=== PATIENT | female | born 1950 | race Caucasian/White ===

== ENCOUNTER → 2017-10-27 14:53 | Outpatient (CLI) | payer MEDICARE, SELFPAY ==
--- NOTE | 2017-10-27 14:57 | CT_ITS ---
EXAM: CT LUNG LOW DOSE WO CONTRAST COMPARISON: None HISTORY: 67-year-old female with 48 pack-year smoking history asymptomatic ORDERING PHYSICIAN: Rubin Mcdowell MD PATIENT AGE: 67 years TECHNIQUE: The exam was performed on a GE Light Speed [address] scanner using 2.90 mGy CTDI. A low dose helical CT CHEST was performed on a multi-detector scanner. All CT scans at the facility use one or more dose reduction, viz: automated exposure control; ma/kV adjustment per patient size (including targeted exams where dose is matched to indication; i.e. head); or iterative reconstruction technique. The LDCT was performed in a facility that meets the criteria for the screening program. Data regarding this exam was submitted to ACR which is an approved registry. The order for this exam indicates that it came as a result of a lung cancer screening counseling shard decision-making visit that included all the elements required of such a visit including smoking cessation. The radiologist interpreting this exam meets the CMS criteria for the LDCT lung cancer screening program. The exam is reported using the Lung-RADS classification scale and reported to the ACR registry. NOTE: This study was performed for the specific purposes of lung cancer screening and is not an alternative to diagnostic chest CT. RADIATION DOSE: CTDI vol(CT dose Index-volume) = 2.90mG DLP (Dose Length Product) = 101.74 mGcm FINDINGS: Biapical fibrotic changes are present with fibronodular changes. Calcified granulomas present in the right apex. There is an irregular parenchymal opacity in the right upper lobe at 8 mm and an additional nodule in the right apex 6 mm. Additional 6 mm nodule present in the right apex posteriorly along with subpleural densities in the right upper lobe posteriorly. These are all probably related to fibrotic changes. [address] follow-up suggested. There are centrilobular emphysematous changes with scattered calcified granulomas. Mild bronchial thickening is noted. 5 mm subpleural opacity right upper lobe laterally. There are scattered calcified nodes in the mediastinum. Upper abdominal images show a 2.9 cm isodensity in the left hepatic lobe probably related to a cyst. IMPRESSION: 1. Lung RADS Category: 3, probably benign 2. Other findings: Centrilobular emphysema, old granulomatous disease, probable hepatic cyst RECOMMENDATIONS: [address] chest follow-up without and with contrast
== END ==
PROVIDERS: PCP Family Medicine; Visit Provider Family Medicine
DX: Z87.891 Personal history of nicotine dependence (principal); Z12.2 Encounter for screening for malignant neoplasm of respiratory organs

== ENCOUNTER → 2018-11-01 12:54 | Outpatient (CLI) | payer MEDICARE, SELFPAY ==
--- NOTE | 2018-11-01 12:59 | CT_ITS ---
CT lung screening EXAM: CT LUNG LOW DOSE WO CONTRAST HISTORY: Greater than 30 pack-year smoking history asymptomatic for lung cancer ITS.REASON: CURRENT TOBACCO USE ORDERING PHYSICIAN: Rubin Mcdowell MD PATIENT AGE: 68 years COMPARISON: 10/27/2017 TECHNIQUE: The exam was performed on a GE Light Speed [address] scanner using 2.90 mGy CTDI. A low dose helical CT CHEST was performed on a multi-detector scanner. All CT scans at the facility use one or more dose reduction, viz: automated exposure control, ma/kV adjustment per patient size (including targeted exams where dose is matched to indication, i.e. head), or iterative reconstruction technique. The LDCT was performed in a facility that meets the criteria for the screening program. Data regarding this exam was submitted to ACR which is an approved registry. The order for this exam indicates that it came as a result of a lung cancer screening counseling shard decision-making visit that included all the elements required of such a visit including smoking cessation. The radiologist interpreting this exam meets the CMS criteria for the LDCT lung cancer screening program. The exam is reported using the Lung-RADS classification scale and reported to the ACR registry. NOTE: This study was performed for the specific purposes of lung cancer screening and is not an alternative to diagnostic chest CT. RADIATION DOSE: CTDI vol(CT dose Index-volume) = 2.90mG DLP (Dose Length Product) = 108.90 mGcm FINDINGS: COPD with scattered areas of fibrosis. There is moderate biapical fibronodular changes which are stable consistent with scarring. There is a new 5 mm nodular density in the right middle lobe image 45. Mild diffuse bronchial thickening. No central obstructing lesions. Coronary artery calcifications are present. Calcified granuloma is present in the right upper lobe. 2.7 x 2 cm isodense lesion in the left hepatic lobe IMPRESSION: 1. Lung RADS Category: 3, probably benign, new right middle lobe nodule 2. Other findings: COPD, coronary artery calcification RECOMMENDATIONS: [address] follow-up
--- NOTE | 2018-11-01 13:00 | XR_ITS ---
XR DEXA axial skeleton HISTORY: ITS.REASON: POST MENOPAUSAL SCREENING ORDERING PHYSICIAN: Rubin Mcdowell MD PATIENT AGE: 68 years COMPARISON: 06/08/2013 FINDINGS: The BMD measured at the Left femoral neck is 0.770 g/cm squared with a T score of -1.9. This is considered Osteopenic according to the World Health Organization criteria. Fracture risk is Moderate. Treatment is advised. The L1 L4 density has a T score of -0.3 and has decreased by 8%. The hip density has decreased by 8.6%. IMPRESSION: Osteopenia with moderate fracture risk. Treatment is advised. Suggest follow-up exam October 2020
== END ==
PROVIDERS: PCP Family Medicine; Visit Provider Family Medicine
DX: Z12.2 Encounter for screening for malignant neoplasm of respiratory organs (principal); Z87.891 Personal history of nicotine dependence; Z78.0 Asymptomatic menopausal state
CPT/HCPCS: 77080

== ENCOUNTER → 2019-04-05 10:09 | Outpatient (CLI) | payer MEDICARE, SELFPAY ==
--- NOTE | 2019-04-05 10:16 | XR_ITS ---
PROCEDURE: XR FOOT WT BEARING RT 3V CLINICAL INDICATION: pain Pain COMPARISON: FTL2 FOOT-LT-2 VIEWS from 10/08/2015 FTL3 FOOT-LT-3 VIEWS from 11/06/2015 FTL3 FOOT-LT-3 VIEWS from 11/27/2015 FTR3 FOOT-RT-3 VIEWS from 11/27/2015 FINDINGS: No fracture or dislocation. No lytic or blastic change. There is normal mineralization. The joint spaces are well-preserved. No significant degenerative/arthritic changes. No erosive changes evident. Other findings:Mild generalized osteopenia IMPRESSION: No acute findings. Dictated by: Baldemar Garnett MD 04/05/2019 11:18 Electronically signed by Baldemar Garnett MD in [place] 04/05/2019 11:18
--- NOTE | 2019-04-05 10:16 | XR_ITS ---
PROCEDURE: XR FOOT WT BEARING LT 3V CLINICAL INDICATION: comparison views Prior 1st MTP replacement COMPARISON: FTL2 FOOT-LT-2 VIEWS from 10/08/2015 FTL3 FOOT-LT-3 VIEWS from 11/06/2015 FTL3 FOOT-LT-3 VIEWS from 11/27/2015 FTR3 FOOT-RT-3 VIEWS from 11/27/2015 XR FOOT WT BEARING RT 3V from 04/05/2019 FINDINGS: Status post MTP replacement with a metallic prosthesis at the distal aspect of the 1st metatarsal and mild heterotopic ossification. No fracture or dislocation. Good alignment. Other findings:None. IMPRESSION: No change status post 1st MTP replacement with good alignment Dictated by: Baldemar Garnett MD 04/05/2019 11:21 Electronically signed by Baldemar Garnett MD in [place] 04/05/2019 11:21
== END ==
PROVIDERS: PCP Family Medicine; Visit Provider Podiatrist
DX: M79.671 Pain in right foot; M79.672 Pain in left foot
CPT/HCPCS: 73630

== ENCOUNTER → 2019-12-15 11:40 | Outpatient (CLI) | payer MEDICARE, SELFPAY ==
--- NOTE | 2019-12-15 11:44 | XR_ITS ---
PROCEDURE: XR FOOT WT BEARING RT 3V CLINICAL INDICATION: pain COMPARISON: FTL3 FOOT-LT-3 VIEWS from 11/27/2015 FTR3 FOOT-RT-3 VIEWS from 11/27/2015 XR FOOT WT BEARING RT 3V from 04/05/2019 XR FOOT WT BEARING LT 3V from 04/05/2019 FINDINGS: Hypertrophic change present at the distal aspect of the 1st metatarsal consistent bunion formation. There is some soft tissue swelling at the base of the 5th metatarsal with no underlying bony abnormality. The joint spaces are well-preserved. No significant degenerative/arthritic changes. No erosive changes evident. Other findings:None. IMPRESSION: Bony hypertrophy at the distal aspect of the 1st metatarsal and mild soft tissue swelling at the base of the 5th metatarsal Dictated by: Baldemar Garnett MD 12/15/2019 13:04 Electronically signed by Baldemar Garnett MD in [place] 12/15/2019 13:04
== END ==
PROVIDERS: PCP Family Medicine; Visit Provider Podiatrist
DX: L84 Corns and callosities (principal); M21.621 Bunionette of right foot
CPT/HCPCS: 73630

== ENCOUNTER → 2019-12-23 12:50 | Outpatient (CLI) | payer MEDICARE, SELFPAY ==
--- NOTE | 2019-12-23 12:50 | MR_ITS ---
PROCEDURE: MR ANKLE RT WO/W CON CLINICAL INDICATION: eval for 5th met stress fx.surgical planning visit Peroneal tendinitis, tailor's bunion, osteoarthritis, palpable abnormality, pain and swelling COMPARISON: XR FOOT WT BEARING RT 3V from 12/15/2019 TECHNIQUE: Routine multiplanar multi echo sequences are performed without and with gadolinium enhancement. The FINDINGS: A marker is placed at the base of the 5th metatarsal corresponding to the palpable abnormality. There is some mild bony hypertrophy at this region at the base of the 5th metatarsal but no soft tissue mass. No bone marrow edema at this region. No abnormal fluid collections. The anterior posterior tibiofibular syndesmosis appears intact. The anterior posterior talofibular ligaments appear intact. The posterior tibialis tendon, flexor hallucis and flexor digitorum longus, and Achilles tendon have an unremarkable appearance. Motion artifact does somewhat obscure fine detail regarding these structures. Sagittal images are very limited due to motion. The peroneal tendons have a somewhat unusual appearance with bulky prominence of the tendons at the retro malleolar groove. The peroneal brevis tendon is flattened at this area. Just distal to the retro malleolar groove there is increased T2 signal within the peroneal brevis tendon which appears somewhat thinned. The peroneal longus tendon has an unremarkable appearance. There is a small ankle joint effusion. The talar dome has an unremarkable appearance. There is metatarsus varus IMPRESSION: 1. Flattened appearance of the peroneal brevis at the retro malleolar groove with increased T2 signal and thinning of the peroneal brevis distal to the retro malleolar groove suspicious for partial tear and or tendinitis. 2. Hypertrophy at the base of the 5th metatarsal. No soft tissue or bony mass evident. 3. Small ankle joint effusion Dictated by: Baldemar Garnett MD 12/27/2019 10:57 Electronically signed by Baldemar Garnett MD in [place] 12/27/2019 10:57
== END ==
PROVIDERS: PCP Family Medicine; Visit Provider Podiatrist
DX: M76.71 Peroneal tendinitis, right leg (principal)
CPT/HCPCS: 73723; A9576

== ENCOUNTER → 2019-12-28 10:51 | Outpatient (CLI) | payer MEDICARE, SELFPAY ==
--- NOTE | 2019-12-28 10:54 | MM_ITS ---
PROCEDURE: MM DIG SCREENING MAMM BI W/CAD Digital Breast Tomosynthesis Included CLINICAL INDICATION: SCREENING There is a history of breast cancer patient's maternal 1st cousin. COMPARISON: DMSB DIG MAMM-SCREEN SHERRY from 07/06/2014 DMSB DIG MAMM-SCREEN SHERRY from 04/14/2016 DMSB DIG MAMM-SCREEN SHERRY W/CAD from 04/16/2017 TECHNIQUE: Standard CC and MLO images and 3D Tomosynthesis was obtained. R2 CAD reviewed. FINDINGS: Prominent somewhat heterogenic fibroglandular densities are seen in the central portions of both breasts. The findings are fairly symmetrical bilaterally. There is a mole marker inner quadrant right breast. There is a benign-appearing microcalcification in each breast. There is no suspicious lesion in either breast and no suspicious microcalcifications. IMPRESSION: Moderate breast density with no suspicious lesions seen BI-RAD Category: 2 Benign Finding(s) FOLLOW-UP: 1YR 1 Year Follow-up (A letter has been sent to the patient regarding results of the study.) Dictated by: Dr. Ryan Ivy MD 01/01/2020 13:[address] Ryan Ivy MD in [place] 01/01/2020 13:35
== END ==
PROVIDERS: PCP Family Medicine; Visit Provider Family Medicine
DX: Z12.31 Encounter for screening mammogram for malignant neoplasm of breast (principal)
CPT/HCPCS: 77063; 77067

== ENCOUNTER → 2020-01-05 14:55 | Outpatient (CLI) | payer MEDICARE, SELFPAY ==
--- NOTE | 2020-01-05 15:07 | XR_ITS ---
PROCEDURE: XR CHEST 2V CLINICAL HISTORY: HTN COMPARISON: LUNGSCREEN CT lung screening from 11/01/2018 FINDINGS: The cardiomediastinal silhouette and pulmonary vascularity are within normal limits. There is mild biapical pleural thickening. There is some fibronodular changes in the right apex. The remaining lungs are clear. No acute bony abnormalities. IMPRESSION: No acute findings. Dictated by: Baldemar Garnett MD 01/05/2020 15:30 Electronically signed by Baldemar Garnett MD in [place] 01/05/2020 15:30
--- NOTE | 2020-01-05 15:47 | ECG_ITS ---
APPROVED REPORT Exam: Resting ECG HR:62 bpm ECG Measurements Heart Rate 62 AXES RI 170 P 65 QRSd 84 QRS 58 QT 394 T 63 QTc 399 <Conclusion> Normal sinus rhythm Normal ECG Electronically signed by : Rubin Ro, 01/06/2020 17:41:55
[2020-01-05 16:05] LABS: Basophils % 0.3 % (0.1-2.0); Eosinophils # 0.1 K/mm3 (0.0-0.4); Eosinophils % 1.1 % (0.1-12.0); Hematocrit 44.7 % (37.0-47.0); Hemoglobin 15.2 g/dL (12.2-16.2); Lymphocytes # 2.6 K/mm3 (0.7-4.5); Lymphocytes % 33.9 % (10-50); Mean Corpuscular Hemoglobin 31.7 pg (27.0-31.2); Mean Corpuscular Volume 93.2 fl (81-99); Mean Platelet Volume 7.7 fl (7.4-10.4); Monocytes # 0.7 K/mm3 (0.1-1.0); Monocytes % 8.4 % (1.7-9.3); Neutrophils # 4.3 K/mm3 (1.8-7.8); Neutrophils % 56.2 % (37.0-80.0); Platelet Count 228 K/mm3 (142-424); Red Cell Distribution Width 13.4 % (11.5-17.5); White Blood Count 7.7 K/mm3 (4.8-10.8)
[2020-01-05 19:16] LABS: Chloride 101 mmol/L (98-107); Sodium 138 mmol/L (136-145)
[2020-01-05 19:19] LABS: Alanine Aminotransferase 18 U/L (12-78); Albumin Level 4.3 g/dl (3.5-5.0); Albumin/Globulin Ratio 1.6 (1.1-1.8); Alkaline Phosphatase 99 U/L (38-126); Aspartate Amino Transferase 30 U/L (14-36); Bilirubin,Total 0.5 mg/dl (0.2-1.3); Blood Urea Nitrogen 9 mg/dl (7-17); Carbon Dioxide 32 mmol/L (22.0-30.0); Estimated Glomerular Filt Rate 100 ml/min (>60); GFR (African American) 121 ML/MIN (>60); Globulin 2.7 g/dL (1.3-3.2)
[2020-01-05 19:20] LABS: Glucose 77 mg/dl (74-100)
[2020-03-22 10:32] LABS: Cotinine 210.2; Nicotine 16.8
== END ==
PROVIDERS: PCP Family Medicine; Visit Provider Podiatrist
DX: Z01.818 Encounter for other preprocedural examination (principal); S86.311A Strain of muscle(s) and tendon(s) of peroneal muscle group at lower leg level, right leg, initial encounter; E55.9 Vitamin D deficiency, unspecified
CPT/HCPCS: 36415; 71046; 80053; 80323; 82306; 85025; 93005

== ENCOUNTER → 2020-01-11 10:32 | Outpatient (CLI) | payer MEDICARE, SELFPAY ==
[2020-01-11 15:59] LABS: Coronavirus 19 IgG Antibody Negative (Negative); Coronavirus 19 IgM Antibody Negative (Negative)
== END ==
PROVIDERS: Visit Provider Podiatrist
DX: Z01.818 Encounter for other preprocedural examination (principal); S86.311A Strain of muscle(s) and tendon(s) of peroneal muscle group at lower leg level, right leg, initial encounter
CPT/HCPCS: 36415; 86328; 88304

== ENCOUNTER 2020-01-13 05:39 | Day surgery (SDC) | payer MEDICARE, SELFPAY ==
[2020-01-11 11:43] VITALS: BMI 23.8
[2020-01-13] VITALS (10 sets, daily range): BP systolic 133–167; BP diastolic 70–83; PULSE 65–79; RESP 12–20; TEMP 36.4–36.7; O2SAT 94–98
--- NOTE | 2020-01-13 07:39 | XR_ITS ---
PROCEDURE: XR FOOT RT 2V CLINICAL INDICATION: RIGHT PERONEAL TENDON REPAIR, R 5TH MT COMPARISON: FTR3 FOOT-RT-3 VIEWS from 11/27/2015 XR FOOT WT BEARING RT 3V from 04/05/2019 XR FOOT WT BEARING LT 3V from 04/05/2019 XR FOOT WT BEARING RT 3V from 12/15/2019 FINDINGS: Intraoperative spot film radiograph 3 seconds fluoroscopy time. No fracture or dislocation. No lytic or blastic change. There is normal mineralization. The joint spaces are well-preserved. No significant degenerative/arthritic changes. No erosive changes evident. Other findings:None. IMPRESSION: No acute findings. Dictated by: Jesus Catherine 01/13/2020 08:57 Electronically signed by Jesus Catherine in [place] 01/13/2020 08:57
--- NOTE | 2020-01-13 08:01 | HMH.ANESCL ---
[facility] Anesthesia Checklist - Structural Data Admitted From: Home Planned Operative Procedure/s: r perineal tendon repair Consent for Planned Operative Procedure(s) Verified: Yes - Additional verifications Anesthesia Reactions: No Hx Blood Transfusions: No Blood Transfusion Reaction: No - Airway Assessment C-Spine Mobility Assessed: Yes TMJ Mobility Assessed: Yes Dentition: Poor Dentition - Neurological Assessment Level of Consciousness: Awake, Alert, Appropriate - Anesthesia Plan Anesthesia Risk discussed: Yes Anesthesia Plan: Verified ASA Class: II Anesthesia Type: General w/block [facility] History I have reviewed the patient's past medical history: Yes Medical History: Reports:: Depression, Hiatal Hernia, Hyperlipidemia, Hypertension, Osteoporosis, Seizures (gabapentin) Denies:: Cancer, Diabetes Mellitus Type 1, Diabetes Mellitus Type 2, Internal Pacemaker, MRSA *Have you ever received a pneumonia vaccine?: Yes *Have you received a flu vaccine this season?: Yes Other Medical History: Reports: Arthritis, Osteoporosis. Denies: Blood Transfusion Reaction Anesthesia experience/problems:: none Other Surgeries: Yes: Appendectomy, Cholecystectomy, Hernia Repair, Hysterectomy-Total, Tubal Ligation. No: Pacemaker Amputation: No Fractures: No - *Social History Educational Level: Completed High School Smoking Status: Current every day smoker Tobacco Type: cigarettes # Packs/Day (cigarettes): 2 Alcohol Intake: never Alcohol Intake Frequency:: other Substance Use Type: denies use *Occupational Status:: retired Housing: house Household Members: spouse *Travel in the last 8 weeks: None - Psychiatric History Pschychiatric History:: Reports:: Depression Family Hx:: Diabetes, Heart Attack
--- NOTE | 2020-01-13 08:15 | XR_ITS ---
PROCEDURE: XR FOOT RT MIN 3V CLINICAL INDICATION: Post op right 5th met COMPARISON: 12/15/2019 FINDINGS: There is a dense cast obscuring the bony detail. No definite bony abnormalities are demonstrated through the dense cast. IMPRESSION: Limited study Dictated by: Jesus Catherine 01/13/2020 09:06 Electronically signed by Jesus Catherine in [place] 01/13/2020 09:06
--- NOTE | 2020-01-13 08:37 | HMH.OPNOTE ---
Date of procedure: 01/13/20 Pre-op Diagnosis:: 1. Right peroneus longus tendon tear 2. Right peroneus brevis tendon tear 3. Right foot exostosis 4. Right fifth metatarsal hypertrophy 5. Right foot synovitis 6. Right foot peroneal retinaculum tear 7. Right sub 5th metatarsal callus Post-op Diagnosis:: Same Procedure performed:: 1. Right peroneus brevis tendon debridement and repair 2. Right peroneus longus tendon debridement and repair 3. Right foot exostectomy 4. Right foot synovectomy 5. Right peroneal retinaculum repair 6. Application of amniotic graft 7. Right foot callus debridement 8. Application of posterior splint Surgeon:: Sandy Ulloa DPM SAIL REPAIRER:: Rakesh Worthy Anesthesia: GETA, regional (R popliteal block) Estimated blood loss (mL): 10 Clinical Note:: Mrrs. Engle is a 69 y/o female who c/o right lateral foot pain and bony prominence. RIGHT ANKLE MRI 12/23/19, Images were reviewed and evaluated by myself. FINDINGS: A marker is placed at the base of the 5th metatarsal corresponding to the palpable abnormality. There is some mild bony hypertrophy at this region at the base of the 5th metatarsal but no soft tissue mass. No bone marrow edema at this region. No abnormal fluid collections. The anterior posterior tibiofibular syndesmosis appears intact. The anterior posterior talofibular ligaments appear intact. The posterior tibialis tendon, flexor hallucis and flexor digitorum longus, and Achilles tendon have an unremarkable appearance. Motion artifact does somewhat obscure fine detail regarding these structures. Sagittal images are very limited due to motion. The peroneal tendons have a somewhat unusual appearance with bulky prominence of the tendons at the retro malleolar groove. The peroneal brevis tendon is flattened at this area. Just distal to the retro malleolar groove there is increased T2 signal within the peroneal brevis tendon which appears somewhat thinned. The peroneal longus tendon has an unremarkable appearance. There is a small ankle joint effusion. The talar dome has an unremarkable appearance. There is metatarsus varus. IMPRESSION: 1. Flattened appearance of the peroneal brevis at the retro malleolar groove with increased T2 signal and thinning of the peroneal brevis distal to the retro malleolar groove suspicious for partial tear and or tendinitis. 2. Hypertrophy at the base of the 5th metatarsal. No soft tissue or bony mass evident. 3. Small ankle joint effusion. Conservative treatment discussed but not recommended at this point, as she has tried and failed treatment including: NSAIDs, modification of shoe gear and activity, immobilization, ice, elevation, streching therapy. We previously discussed tendon debridement and repair and exostectomy with possible advancement of the tendon at the fifth metatarsal as needed. All risks and benefits were discussed including but not limited to: damage to blood vessels and nerves, bleeding, infection, wound complications, delayed, mal or non-union of bone, post-traumatic arthritis, need for further surgery, need for removal of implant, prolonged swelling of the extremity, prolonged pain, CRPS/RSD, DVT, and anesthetic complications. No guarantees were given. All questions fully answered. The patient verbalized understanding and agreed to proceed with surgery. Consent was obtained. Necessary labs and pre-op testing ordered: CBC, CMP, EKG, CXR. PCP Dr. Mcdowell granted medical clearance. e-Rx Amenia, Freda, Riana. Operative findings:: Tear noted to the right peroneal retinaculum. The longus tendon had a longitudinal split tear noted. The Daxa is brevis tendon had a longitudinal split tear about 6 cm long with thickening bulbous nonviable tendon at the level of the retromalleolar groove. There is a prominent fifth metatarsal base with hypertrophy of the bone. Synovitis noted throughout the lateral foot and around the peroneal tendons. Operative note:: On this date and time patient was deemed an appropriat
--- NOTE | 2020-01-13 08:45 | P.PN_ITS ---
[facility] Anesthesia Record Part I Intake, IV Amount: 1,500 Estimated blood loss (mL): 0 Urine output (mL): 0 Blood Pressure: 133/77 SaO2: 96 Pulse Rate: 72 Respiratory Rate: 12 Temperature: 98.1 F Patient is:: Awake, Stable Stable to PACU at:: 08:35
--- NOTE | 2020-01-13 09:05 | PC.NURSE ---
0855- rad @ bedside getting post-op xrays
== END 2020-01-13 10:10 | disposition home or self-care (01) ==
LOC: OR 05:39
PROVIDERS: PCP Family Medicine; Visit Provider Podiatrist
DX: M66.371 Spontaneous rupture of flexor tendons, right ankle and foot (principal); M21.621 Bunionette of right foot; M79.671 Pain in right foot; I10 Essential (primary) hypertension; Z72.0 Tobacco use; E78.5 Hyperlipidemia, unspecified; E55.9 Vitamin D deficiency, unspecified; M81.0 Age-related osteoporosis without current pathological fracture; M89.371 Hypertrophy of bone, right ankle and foot; Z79.899 Other long term (current) drug therapy; Z88.8 Allergy status to other drugs, medicaments and biological substances
CPT/HCPCS: 28086; 28200 ×2; 28288; C5275; 73620; 73630; 76000; 96374; J2405; Q4211

== ENCOUNTER 2020-04-13 11:00 | Outpatient (RCR) | payer MEDICARE, SELFPAY ==
--- NOTE | 2020-04-04 09:17 | HMH.RHREAS ---
Rehab Reassessment Rehab OP Re-assessment Start: 04/04/20 08:28 Freq: Status: Active Protocol: Document 04/04/20 08:46 JANNY (Rec: 04/04/20 09:17 JANNY [id number]) Electronically Signed By Juan M Ji, PT 04/04/20 08:46 Rehab Re-assessment Subjective Subjective PT REPORTS 0/10 R ANKLE PAIN ON VAS, AND FEELS 75-80% BETTER OVERALL Objective Objective Notes MMT: R ANKLE DF 4-4+/5, PF 4-4 +/5, INV 4/5, EVR 4/5 AROM: R ANKLE DF 0-10, PF 0-40 , INV 0-55, EVR 0-2 TTP: 0/4 SX. INCISION GAIT: PT AMBULATES WITH INCREASED SUPINATION, D/T PERONEAL WEAKNESS, AND PROLONGED COMPENSATORY PATTERN Assessment Progress Assessment Progressing as Expected Assessment Notes PT W/IMPROVED STRENGTH, ROM, AND TTP Patient goals met STG'S 01/24 LTG'S 10/27 Goals Not Met STG'S 07/27, LTG'S 12/27 Plan Plan PT TO CONT. W/SKILLED P.T. TO MAKE FURTHER IMPROVEMNTS IN R ANKLE AROM, STRENGTH, AND GAIT LIMITATIONS TO ALLOW FOR OPTIMAL FUNCTION Frequency of Therapy 1-2X/WK Duration of therapy 3-4 WKS Time and Billing Re-Eval Time 15 Re-Eval Billing Units 0 PHYSICIAN CERTIFICATION: I certify the specified therapy services for Bonny Engle are required, authorized, and reviewed every 30 days.
== END 2020-04-13 12:00 | disposition home or self-care (01) ==
LOC: PT 11:00
PROVIDERS: PCP Family Medicine; Visit Provider Podiatrist
DX: S86.311A Strain of muscle(s) and tendon(s) of peroneal muscle group at lower leg level, right leg, initial encounter (principal); Z98.890 Other specified postprocedural states
CPT/HCPCS: 97010; 97014; 97016; 97110; 97112; 97116; 97140; 97163; 97164; G0283

== ENCOUNTER → 2020-09-11 11:47 | Outpatient (CLI) | payer MEDICARE, SELFPAY ==
--- NOTE | 2020-09-11 11:55 | XR_ITS ---
PROCEDURE: XR FOOT RT MIN 3V CLINICAL INDICATION: INJURY OF RT FOOT, INITIAL ENCOUNTER Pain COMPARISON: CR XR FOOT WT BEARING LT 3V from 04/05/2019 CR XR FOOT WT BEARING RT 3V from 12/15/2019 CR XR FOOT RT MIN 3V from 01/13/2020 CR XR FOOT RT 2V from 01/13/2020 FINDINGS: Diffuse osteopenia with metatarsus varus. There is a nondisplaced fracture involving the proximal shaft of the 1st metatarsal. There is pes cavum IMPRESSION: Nondisplaced fracture proximal shaft of 1st metatarsal. Pes cavum with metatarsus varus Dictated by: Baldemar Garnett MD 09/11/2020 14:25 Baldemar Garnett MD in [place] 09/11/2020 14:25
== END ==
PROVIDERS: PCP Family Medicine; Visit Provider Family Medicine
DX: S99.921A Unspecified injury of right foot, initial encounter (principal)
CPT/HCPCS: 73630

== ENCOUNTER → 2020-09-18 10:22 | Outpatient (CLI) | payer MEDICARE, SELFPAY ==
--- NOTE | 2020-09-18 10:30 | CT_ITS ---
PROCEDURE: CT FOOT RT WO CON CLINICAL HISTORY: Pain after fall. Fracture evaluation Fall on 09/14/20 Pt states she has had tendon repair sx in right foot COMPARISON: CR XR FOOT RT MIN 3V from 09/11/2020 TECHNIQUE: Axial images obtained with sagittal and coronal reformats. All CT scans at the facility use one or more dose reduction, viz: automated exposure control, ma/kV adjustment per patient size (including targeted exams where dose is matched to indication, i.e. head), or iterative reconstruction technique. FINDINGS: The distal tibia and fibula have an unremarkable appearance as does the talus and calcaneus. Minimal osteoarthritic change talonavicular joint. The cuboid and cuneiforms have an unremarkable appearance. There is a nondisplaced fracture involving the proximal shaft of the 1st metatarsal. Callus formation is developing at the fracture site. There is mild medial angulation of the distal fracture fragment. The fracture does not appear to extend to the proximal articular surface. The base of the 2nd metatarsal is unremarkable. No evidence of Lisfranc injury. There is metatarsus varus. Soft tissue swelling is present at the lateral aspect of the ankle at the peroneal tendon region with ill definition of the peroneal tendons. No other soft tissue abnormality evident. IMPRESSION: 1. Nondisplaced healing fracture involving the proximal aspect of the 1st metatarsal. No evidence of Lisfranc injury. 2. Metatarsus varus. 3. Soft tissue swelling at the lateral aspect of the ankle joint at the peroneal tendon region Dictated by: Baldemar Garnett MD 09/20/2020 09:38 Baldemar Garnett MD in [place] 09/20/2020 09:38
== END ==
PROVIDERS: PCP Family Medicine; Visit Provider Podiatrist
DX: M79.671 Pain in right foot (principal)
CPT/HCPCS: 73700

== ENCOUNTER → 2020-10-05 13:00 | Outpatient (CLI) | payer MEDICARE, SELFPAY ==
--- NOTE | 2020-10-05 13:08 | XR_ITS ---
PROCEDURE: XR FOOT WT BEARING RT 3V CLINICAL INDICATION: fracture eval Follow-up fracture COMPARISON: No exams were available for comparison FINDINGS: There is a healing nondisplaced fracture involving the proximal shaft of the 1st metatarsal. No other significant anomalies are evident. The joint spaces are well-preserved. No significant degenerative/arthritic changes. No erosive changes evident. Other findings:None. IMPRESSION: Good alignment healing fracture proximal aspect of 1st metatarsal Dictated by: Baldemar Garnett MD 10/05/2020 14:04 Baldemar Garnett MD in [place] 10/05/2020 14:04
== END ==
PROVIDERS: PCP Family Medicine; Visit Provider Podiatrist
DX: T14.8XXA Other injury of unspecified body region, initial encounter (principal); S92.314D Nondisplaced fracture of first metatarsal bone, right foot, subsequent encounter for fracture with routine healing
CPT/HCPCS: 73630

== ENCOUNTER 2020-11-14 11:16 | Emergency (ER) | payer MEDICARE, SELFPAY ==
[2020-11-14 11:34] VITALS: BP 141/87; PULSE 74; RESP 16; TEMP 36.9; O2SAT 93; BMI 25.0
--- NOTE | 2020-11-14 11:40 | HMH.EDUTC ---
[facility] Disposition Clinical Impression: Exposure to COVID-19 virus Disposition: Home, Self-Care Condition on Discharge: Good Instructions: Preventing the Spread of Coronavirus Discharge Instructions Additional Instructions: Drink plenty of fluids. Take tylenol for pain or fever. Return if you begin to have difficulty breathing. Follow up with your regular doctor. GO TO THE ER FOR ANY WORSENING SYMPTOMS Referrals: Rubin Mcdowell MD [Primary Care Provider] - Time of Disposition: 11:43 Medical Decision Making - Medical Records Medical records reviewed: No: I reviewed the patient's medical records. - Emmanuel Inquiry Pt receiving controlled substance: No Vital Signs: 11/14/20 11:34 11/14/20 11:47 Temperature 98.4 F 98.4 F Temperature Source Oral Pulse Rate 74 Pulse Rate [Left] 74 Respiratory Rate 16 16 Blood Pressure 141/87 H Blood Pressure [Right Arm] 141/87 H Blood Pressure Mean [Right Arm] 105 Blood Pressure Source [Right Arm] Automatic Cuff Blood Pressure Position [Right Arm] Sitting 02 Sat by Pulse Oximetry 93 L Oxygen Delivery Method Room Air [facility] HPI - General Stated complaint: Covid test Time Seen by Provider: 11/14/20 11:40 Mode of Arrival: Ambulatory Source of Information: Patient Limitations: No Limitations Description of Symptoms (Recalled from Triage Doc. by RN): Covid testing-Exposure HEENT Symptoms (Recalled from RN notes): No Resp Symptoms (Recalled from RN notes): No Skin Symptoms (Recalled from RN notes): No MS Symptoms (Recalled from RN notes): No Functional Status (Recalled from RN notes): wnl - History of Present Illness Provider Complaint: She states that she was exposed to covid-19 last week. She denies any symptoms, but she needs to be sure because she has a chronically ill sister. - Related Data Home Medications Medication Instructions Recorded Confirmed carvedilol 12.5 mg tablet 12.5 mg PO DAILY tab 04/05/19 10/08/20 escitalopram oxalate 5 mg tablet 5 mg PO DAILY tab 04/05/19 10/08/20 lactobacillus combination no.9 4 4,000 mmu cells PO DAILY 04/05/19 10/08/20 billion cell capsule lisinopril 20 mg tablet 20 mg PO DAILY tab 04/05/19 10/08/20 melatonin 5 mg tablet 5 mg PO HS PRN 04/05/19 10/08/20 rosuvastatin 10 mg tablet 10 mg PO DAILY tab 04/05/19 10/08/20 Previous Rx's Medication Instructions Recorded ergocalciferol (vitamin D2) 1,250 50,000 unit PO QWEEK 98 Days #14 01/06/20 mcg (50,000 unit) capsule cap Allergies Allergy/AdvReac Type Severity Reaction Status Date / Time gabapentin Allergy Severe Seizure Verified 11/14/20 11:39 - Worker's Comp Is this a Worker's Comp case?: No Is this an [facility] Worker's Comp?: No Is this a [facility] Worker's Comp?: No [facility] History - Hepatitis A Screen Drug use history?: No High risk sexual behaviors?: No History of sexually transmitted infection?: No Currently employed?: No Childcare worker?: No Do you have indoor plumbing?: Yes Do you have electricity?: Yes Attestation statement:: This patient has been screened for Hepatitis A risk factors. I have reviewed the patient's past medical history: Yes Medical History: Reports:: Depression, Hiatal Hernia, Hyperlipidemia, Hypertension, Osteoporosis, Seizures Denies:: Cancer, Diabetes Mellitus Type 1, Diabetes Mellitus Type 2, Internal Pacemaker, MRSA Other Medical History: Reports: Arthritis, Osteoporosis. Denies: Blood Transfusion Reaction Other Surgeries: Yes: Appendectomy, Cholecystectomy, Hernia Repair, Hysterectomy-Total, Tubal Ligation. No: Pacemaker Amputation: No Fractures: No Comment: Back Surgery- Cervical. Hemorrhoidectomy. Surgery left great toe bunionectomy years ago. - Social History Smoking Status: Current every day smoker Tobacco Type: cigarettes # Packs/Day (cigarettes): 1 Alcohol Intake: never Alcohol Intake Frequency:: other Substance Use Type: denies use Occupational Status: retired Housing: house [employer]
[2020-11-14 11:47] VITALS: BP 141/87; PULSE 74; RESP 16; TEMP 36.9; O2SAT 93
--- NOTE | 2020-11-14 16:14 | PC.NURSE ---
Pt notified of positive Covid test result.
== END 2020-11-14 11:48 | disposition home or self-care (01) ==
PROVIDERS: Emergency Provider Nurse Practitioner Family; PCP Family Medicine
DX: U07.1 COVID-19 (principal); I10 Essential (primary) hypertension; E78.5 Hyperlipidemia, unspecified; G40.909 Epilepsy, unspecified, not intractable, without status epilepticus; M81.0 Age-related osteoporosis without current pathological fracture; F33.1 Major depressive disorder, recurrent, moderate; F17.210 Nicotine dependence, cigarettes, uncomplicated; Z79.899 Other long term (current) drug therapy
CPT/HCPCS: G0463; 99202; U0003

== ENCOUNTER 2021-06-14 14:36 | Emergency (ER) | payer MEDICARE, SELFPAY ==
--- NOTE | 2021-06-14 14:38 | ECG_ITS ---
APPROVED REPORT Exam: Resting ECG HR:67 bpm ECG Measurements Heart Rate 67 AXES KS 142 P 65 QRSd 84 QRS 68 QT 406 T 52 QTc 429 Conclusion Normal sinus rhythm with sinus arrhythmia Normal ECG Electronically signed by : Rubin Ro MD 06/15/2021 10:02:28
[2021-06-14 14:42] VITALS: BP 150/98; PULSE 72; O2SAT 90
--- NOTE | 2021-06-14 14:44 | HMH.EDGENADL ---
ED Disposition Clinical Impression: Syncope and collapse Acute bronchitis Qualifiers: Bronchitis organism: unspecified organism Qualified Code(s): J20.9 - Acute bronchitis, unspecified Diarrhea Qualifiers: Diarrhea type: unspecified type Qualified Code(s): R19.7 - Diarrhea, unspecified Disposition: Home, Self-Care Condition on Discharge: Good Instructions: DI for Syncope in Adults (Fainting), DI for Acute Bronchitis, DI for Diarrhea and Traveler's Diarrhea -- Adult Additional Instructions: Follow-up with your primary care provider, call Thursday to make appointment. Return the emergency department if fainting recurs. Rest, drink plenty of fluids. Referrals: Rubin Mcdowell MD [Primary Care Provider] - - Critical Care Critical Care Time: No Attestation: On , the high probability of a clinically significant, sudden or life threatening deterioration of the following system(s) required my full and direct attention, intervention and personal management. The time I documented below is in addition to time spent performing reported procedures but includes the following listed in this critical care notation. Medical Decision Making - Medical Records Medical records reviewed: Yes: I reviewed the patient's medical records. MR Comment: positive covid PCR in october - Emmanuel Inquiry Pt receiving controlled substance: No Vital Signs: 06/14/21 14:42 06/14/21 14:45 06/14/21 15:00 Temperature 98.0 F Temperature Source Oral Pulse Rate 72 67 Pulse Rate [Right Brachial] 102 H Respiratory Rate 18 Blood Pressure 150/98 H 125/81 Blood Pressure [Right Arm] 150/98 H Blood Pressure Mean [Right Arm] 115 Blood Pressure Source Automatic Cuff Automatic Cuff Blood Pressure Source [Right Arm] Automatic Cuff Blood Pressure Position Sitting Sitting Blood Pressure Position [Right Arm] Sitting 02 Sat by Pulse Oximetry 90 L 98 92 L Oxygen Delivery Method Room Air Room Air Room Air 06/14/21 15:30 06/14/21 16:08 Temperature Temperature Source Pulse Rate 66 63 Pulse Rate [Right Brachial] Respiratory Rate Blood Pressure 133/83 154/85 H Blood Pressure [Right Arm] Blood Pressure Mean [Right Arm] Blood Pressure Source Automatic Cuff Automatic Cuff Blood Pressure Source [Right Arm] Blood Pressure Position Sitting Sitting Blood Pressure Position [Right Arm] 02 Sat by Pulse Oximetry 92 L 93 L Oxygen Delivery Method Room Air Room Air - Lab Data Lab Results 06/14/21 14:43: POC Glucose 98 06/14/21 14:45: WBC 15.0 H, RBC 5.35, Hgb 16.4 H, Hct 49.4 H, MCV 92.4, MCH 30.6, MCHC 33.2, RDW 13.6, Plt Count 347, MPV 7.8, Neut % (Auto) 71.9, Lymph % (Auto) 20.5, Wilkinson % (Auto) 4.2, Eos % (Auto) 1.1, Baso % (Auto) 2.2 H, Neut # (Auto) 10.8 H, Lymph # (Auto) 3.1, Wilkinson # (Auto) 0.6, Eos # (Auto) 0.2, Baso # (Auto) 0.3 H, Total Counted 100, Neutrophils % (Manual) 66, Lymphocytes % (Manual) 27, Monocytes % (Manual) 5, Eosinophils % (Manual) 1, Basophils % (Manual) 1.0, Platelet Estimate Normal, RBC Morphology Normal 06/14/21 14:45: Sodium 137, Potassium 3.4 L, Chloride 96 L, Carbon Dioxide 36 H, Anion Gap 8.4, BUN 18 H, Creatinine 0.70, Estimated Creat Clear 57, Estimated GFR 83, Est GFR ( Amer) 100, Glucose 96, Calcium 9.1, Total Bilirubin 0.5, AST 29, ALT 22, Alkaline Phosphatase 99, Troponin I < 0.01, Total Protein 7.2, Albumin 4.2, Globulin 3.0, Albumin/Globulin Ratio 1.4 06/14/21 16:14: SARS-CoV-2 (PCR) Not detected, Influenza A Untype (PCR) Not detected, Influenza Type B (PCR) Not detected Result diagrams: 06/14/21 14:45 06/14/21 14:45 Orders (Tests/Meds): ED MEDICATIONS Discontinued Medications Generic Name Dose Route Start Last Admin Trade Name Freq PRN Reason Stop Dose Admin Sodium Chloride 1,000 ml 06/14/21 14:59 06/14/21 16:19 Sodium Chloride 0.9% 1000ml Bag IV 06/14/21 15:00 1,000 ml BOLUS ONE Administration ORDERS Category Date Time Status Troponin I Q3H Lab
[2021-06-14 14:45] VITALS: BP 150/98; PULSE 102; RESP 18; TEMP 36.7; O2SAT 98; BMI 26.7
[2021-06-14 14:56] LABS: POC Glucose,Bedside 98 (70-110)
--- NOTE | 2021-06-14 14:58 | XR_ITS ---
PROCEDURE INFORMATION: Exam: XR Chest Exam date and time: 06/14/2021 2:58 PM Age: 71 years old Clinical indication: Patient HX: SOA, cough for 2 weeks TECHNIQUE: Imaging protocol: XR of the chest. Views: 2 views. COMPARISON: CR XR CHEST 2V 01/05/2020 3:16 PM FINDINGS: Lungs: Lungs are well aerated without a focal area of consolidation. Pleural spaces: Unremarkable. No pleural effusion. No pneumothorax. Heart/Mediastinum: Unremarkable. No cardiomegaly. Bones/joints: Prior surgical fixation of the caudal aspect of the cervical spine. IMPRESSION: Lungs are well aerated without a focal area of consolidation. Subtle reticulonodular pattern in the upper lobe with mild apical pleural thickening. Follow-up. Consider CT chest if indicated.
[2021-06-14 15:00] VITALS: BP 125/81; PULSE 67; O2SAT 92
[2021-06-14 15:17] LABS: Basophils # 0.3 K/mm3 (0-0.2); Basophils % 2.2 % (0.1-2.0); Eosinophils # 0.2 K/mm3 (0.0-0.4); Eosinophils % 1.1 % (0.1-12.0); Hematocrit 49.4 % (37.0-47.0); Hemoglobin 16.4 g/dL (12.2-16.2); Lymphocytes # 3.1 K/mm3 (0.7-4.5); Lymphocytes % 20.5 % (10-50); Mean Corpuscular HGB Conc 33.2 g/dL (31.8-35.4); Mean Corpuscular Hemoglobin 30.6 pg (27.0-31.2); Mean Corpuscular Volume 92.4 fl (81-99); Mean Platelet Volume 7.8 fl (7.4-10.4); Monocytes # 0.6 K/mm3 (0.1-1.0); Monocytes % 4.2 % (1.7-9.3); Neutrophils # 10.8 K/mm3 (1.8-7.8); Neutrophils % 71.9 % (37.0-80.0); Platelet Count 347 K/mm3 (142-424); Red Blood Count 5.35 M/mm3 (4.20-5.40); Red Cell Distribution Width 13.6 % (11.5-17.5)
[2021-06-14 15:19] LABS: Chloride 96 mmol/L (98-107); Potassium 3.4 mmoL/L (3.5-5.1); Sodium 137 mmol/L (136-145)
[2021-06-14 15:21] LABS: Alanine Aminotransferase 22 U/L (12-78); Alkaline Phosphatase 99 U/L (38-126); Anion Gap 8.4 mEq/L (5-15); Aspartate Amino Transferase 29 U/L (14-36); Bilirubin,Total 0.5 mg/dl (0.2-1.3); Blood Urea Nitrogen 18 mg/dl (7-17); Carbon Dioxide 36 mmol/L (22.0-30.0); Creatinine Clearance Estimated 57 mL/min (50-200); Estimated Glomerular Filt Rate 83 ml/min (>60); GFR (African American) 100 ML/MIN (>60)
[2021-06-14 15:22] LABS: Albumin Level 4.2 g/dl (3.5-5.0); Albumin/Globulin Ratio 1.4 (1.1-1.8); Calcium 9.1 mg/dl (8.4-10.2); Glucose 96 mg/dl (74-100); Total Protein,Serum 7.2 g/dl (6.3-8.2)
[2021-06-14 15:23] LABS: MANUAL DIFFERENTIAL MANUAL DIFFERENTIAL (MANUAL DIFF)
[2021-06-14 15:30] VITALS: BP 133/83; PULSE 66; O2SAT 92
[2021-06-14 15:40] LABS: Troponin I < 0.01 ng/ml (0.00-0.034)
[2021-06-14 15:50] LABS: Eosinophils % 1 % (0-3); Lymphocytes % 27 % (10-50); Monocytes % 5 % (2-9); Neutrophils % 66 % (42-76); Platelet Estimate Normal; RBC Morphology Normal; Total Cells Counted 100
[2021-06-14 16:08] VITALS: BP 154/85; PULSE 63; O2SAT 93
--- NOTE | 2021-06-14 16:15 | PC.NURSE ---
COVID swab sent to lab at this time.
[2021-06-14 16:21] LABS: Coronavirus 19, PCR Not Detected (NotDetected); Influenza A, PCR Not Detected (NotDetected); Influenza B, PCR Not Detected (NotDetected)
[2021-06-14 17:45] VITALS: BP 141/81; PULSE 65; RESP 18; TEMP 36.8; O2SAT 93
== END 2021-06-14 17:45 | disposition home or self-care (01) ==
PROVIDERS: Emergency Provider Emergency Medicine; PCP Family Medicine
DX: J20.9 Acute bronchitis, unspecified (principal); R55 Syncope and collapse; E78.5 Hyperlipidemia, unspecified; I10 Essential (primary) hypertension; M81.0 Age-related osteoporosis without current pathological fracture; F17.210 Nicotine dependence, cigarettes, uncomplicated; Z20.822 Contact with and (suspected) exposure to COVID-19
CPT/HCPCS: 71046; 80053; 82962; 84484; 85007; 85025; 93005; 96365; 99283; C9803; U0003; U0005

== ENCOUNTER → 2021-06-17 13:18 | Outpatient (CLI) | payer MEDICARE, SELFPAY | LOC: SL 13:20 → RT 13:22 | PROVIDERS: PCP Family Medicine; Visit Provider Family Medicine | DX: R55 Syncope and collapse (principal) | CPT/HCPCS: 93225; 93226 ==

== ENCOUNTER → 2022-05-14 14:09 | Outpatient (CLI) | payer MEDICARE, SELFPAY | PROVIDERS: PCP Nurse Practitioner Family; Visit Provider Nurse Practitioner Family | DX: R10.9 Unspecified abdominal pain (principal) ==

== ENCOUNTER → 2022-05-15 13:14 | Outpatient (CLI) | payer MEDICARE, SELFPAY ==
--- NOTE | 2022-05-15 13:19 | XR_ITS ---
FINAL REPORT CLINICAL HISTORY: ACUTE PAIN OF R SHOULDER FINDINGS: RIGHT SHOULDER: 3 views of the right shoulder were obtained. There is no acute fracture or dislocation. There is mild AC joint degenerative change. There is no soft tissue abnormality. IMPRESSION: No acute process. Reviewed, Interpreted and Dictated by Bernardo Whitehead III, MD Transcribed by Rodrigo Hennessy Authenticated and [facility]
== END ==
PROVIDERS: PCP Family Medicine; Visit Provider Nurse Practitioner Family
DX: M25.511 Pain in right shoulder (principal)
CPT/HCPCS: 73030

== ENCOUNTER 2022-05-20 09:45 | Outpatient (RCR) | payer MEDICARE, SELFPAY | END 2022-05-20 09:50 | disposition home or self-care (01) | LOC: OT 09:45 | PROVIDERS: Visit Provider Nurse Practitioner Family | DX: M25.511 Pain in right shoulder (principal) | CPT/HCPCS: 97010; 97014; 97110; 97166; G0283 ==

== ENCOUNTER 2022-09-03 18:02 | Emergency (ER) | payer MEDICARE, SELFPAY ==
[2022-09-03] VITALS (8 sets, daily range): BP systolic 159–178; BP diastolic 81–88; PULSE 65–74; RESP 18–20; TEMP 36.6–36.7; O2SAT 94–99; BMI 27.4; BMI 27.1
--- NOTE | 2022-09-03 18:32 | XR_ITS ---
PROCEDURE INFORMATION: Exam: XR Chest Exam date and time: 09/03/2022 6:59 PM Age: 72 years old Clinical indication: Other: Dizzy TECHNIQUE: Imaging protocol: Radiologic exam of the chest. Views: 1 view. COMPARISON: CR XR CHEST 2V 06/14/2021 3:01 PM FINDINGS: Lungs: Unremarkable. No consolidation. Pleural spaces: Unremarkable. No pleural effusion. No pneumothorax. Heart/Mediastinum: Unremarkable. No cardiomegaly. Bones/joints: Degenerative changes are noted in the spine and shoulders. Orthopedic hardware noted in the cervical spine IMPRESSION: No acute disease
--- NOTE | 2022-09-03 18:43 | ECG_ITS ---
APPROVED REPORT Exam: Resting ECG HR:67 bpm ECG Measurements Heart Rate 67 AXES PA 164 P 76 QRSd 90 QRS 77 QT 379 T 70 QTc 394 Conclusion SINUS RHYTHM NORMAL ECG UNCONFIRMED REPORT Electronically signed by : Rubin Ro MD 09/05/2022 08:59:10
--- NOTE | 2022-09-03 18:44 | CT_ITS ---
PROCEDURE INFORMATION: Exam: CT Head Without Contrast Exam date and time: 09/03/2022 6:58 PM Age: 72 years old Clinical indication: Dizziness; Additional info: Dizzy TECHNIQUE: Imaging protocol: Computed tomography of the head without contrast. Radiation optimization: All CT scans at this facility use at least one of these dose optimization techniques: automated exposure control; mA and/or kV adjustment per patient size (includes targeted exams where dose is matched to clinical indication); or iterative reconstruction. Other protocol: This patient has received 0 known CTs and 0 known cardiac nuclear medicine studies in the 12 months prior to the current study. COMPARISON: No relevant prior studies available. FINDINGS: Brain: There is moderate generalized cerebral atrophy. No intracranial mass, hemorrhage or evidence of acute infarcts. Cerebral ventricles: No ventriculomegaly. Paranasal sinuses: Visualized sinuses are unremarkable. No fluid levels. Mastoid air cells: Visualized mastoid air cells are well aerated. Bones/joints: Unremarkable. No acute fracture. Soft tissues: Unremarkable. IMPRESSION: No acute intracranial abnormality
--- NOTE | 2022-09-03 18:53 | PC.NURSE ---
patient ambulatory to restroom with assistance from daughter and myself; no complications
--- NOTE | 2022-09-03 18:57 | PC.NURSE ---
pt in radiology
--- NOTE | 2022-09-03 18:59 | PC.NURSE ---
UA sent to lab; patient in CT at this time
[2022-09-03 19:07] LABS: Microscopic, Urine URINE MICROSCOPIC (MICROSCOPIC)
[2022-09-03 19:30] LABS: Basophils # 0.1 K/mm3 (0-0.2); Basophils % 0.8 % (0.1-2.0); Eosinophils # 0.2 K/mm3 (0.0-0.4); Eosinophils % 2.2 % (0.1-12.0); Hematocrit 45.3 % (37.0-47.0); Hemoglobin 14.8 g/dL (12.2-16.2); Lymphocytes % 19.7 % (10-50); Mean Corpuscular HGB Conc 32.6 g/dL (31.8-35.4); Mean Corpuscular Hemoglobin 29.7 pg (27.0-31.2); Mean Corpuscular Volume 91.2 fl (81-99); Mean Platelet Volume 8.1 fl (7.4-10.4); Monocytes # 0.4 K/mm3 (0.1-1.0); Neutrophils # 7.3 K/mm3 (1.8-7.8); Neutrophils % 73.4 % (37.0-80.0); Platelet Count 252 K/mm3 (142-424); Red Blood Count 4.97 M/mm3 (4.20-5.40); Red Cell Distribution Width 14.4 % (11.5-17.5); White Blood Count 9.9 K/mm3 (4.8-10.8)
[2022-09-03 19:32] LABS: Appearance,Urine CLEAR (Clear); Bilirubin,Urine Negative (Negative); Blood, Urine 3+ (Negative); Color,Urine YELLOW (Yellow); Glucose,Urine (UA) Negative (Negative); Ketones,Urine Negative (Negative); Leukocyte Esterase,Urine 1+ (Negative); Nitrate,Urine Negative (Negative); Protein,Urine Negative (Negative); Urobilinogen,Urine 0.2 EU/dl (0.2)
[2022-09-03 19:35] LABS: Chloride 106 mmol/L (98-107); Potassium 3.1 mmoL/L (3.5-5.1); Sodium 143 mmol/L (136-145)
[2022-09-03 19:37] LABS: Alanine Aminotransferase 21 U/L (12-78); Alkaline Phosphatase 84 U/L (38-126); Aspartate Amino Transferase 29 U/L (14-36); Bilirubin,Total 0.4 mg/dl (0.2-1.3); Blood Urea Nitrogen 7 mg/dl (7-17); Creatinine Clearance Estimated 55 mL/min (50-200); Estimated Glomerular Filt Rate 99 ml/min (>60); GFR (African American) 120 ML/MIN (>60)
[2022-09-03 19:38] LABS: Albumin Level 3.9 g/dl (3.5-5.0); Albumin/Globulin Ratio 1.3 (1.1-1.8); Anion Gap 6.1 mEq/L (5-15); Calcium 8.7 mg/dl (8.4-10.2); Carbon Dioxide 34 mmol/L (22.0-30.0); Globulin 2.9 g/dL (1.3-3.2); Glucose 112 mg/dl (74-100); Total Protein,Serum 6.8 g/dl (6.3-8.2)
[2022-09-03 19:43] LABS: Bacteria,Urine 2+ /lpf
--- NOTE | 2022-09-03 19:52 | PC.NURSE ---
rounded on patient at this time. Updated daughter and patient on results/POC. Both agreeable with POC and no new needs at this time.
[2022-09-03 19:53] LABS: Troponin I < 0.01 ng/ml (0.00-0.034)
--- NOTE | 2022-09-03 20:41 | HMH.EDDIZZ ---
Discharge Plan Disposition Patient Disposition: Home, Self-Care Prescriptions Prescriptions: New meclizine [Antivert] 25 mg tablet,chewable 25 mg PO TID Qty: 10 0RF No Action rosuvastatin 10 mg tablet 10 mg PO DAILY escitalopram oxalate 5 mg tablet 5 mg PO DAILY lisinopril 20 mg tablet 20 mg PO DAILY carvedilol 12.5 mg tablet 12.5 mg PO DAILY Adult 50 Plus Probiotic 4 billion cell capsule 4,000 mmu cells PO DAILY Referrals Follow up/Referrals: Rosalie Pizano MD [Primary Care Provider] - See instructions Clinical Impressions Clinical Impression: Benign paroxysmal positional vertigo Instructions Patient Instructions: Dizziness, Nonvertigo Discharge ED Provider: Hemant (ED),Ashok Hay [facility] HPI General Chief Complaint: Dizziness Stated Complaint: PATE Back Pain Dizzy Time Seen by Provider: 09/03/22 20:10 Mode of Arrival: Wheelchair Source of Information: Patient, Relative and Medical Record Limitations: No Limitations Description of Symptoms (Recalled from ER Triage Doc. by RN): c/o dizziness, vomiting and lower back pain for over 2 weeks. pt states that she gets dizzy and then she vomits. History of Present Illness HPI Narrative: had back pain and seen by pcp and rx for uti and over the last few days nausea and dizzyness - worse with mov- no speech or visual loss and no other neuro sx MD complaint: dizziness Onset (ago): day(s) Timing: gradual onset and waxing/waning Description: lightheadedness History of similar episodes: No History of trauma: No Severity: moderate Associated symptoms: denies other symptoms Related Data Home Medications Medication Instructions Recorded Confirmed carvedilol 12.5 mg tablet 12.5 mg PO DAILY BP 04/05/19 06/14/21 escitalopram oxalate 5 mg tablet 5 mg PO DAILY Anxiety 04/05/19 06/14/21 lactobacillus combination no.9 4 4,000 mmu cells PO DAILY probiotic 04/05/19 06/14/21 billion cell capsule (Adult 50 Plus Probiotic) lisinopril 20 mg tablet 20 mg PO DAILY BP 04/05/19 06/14/21 rosuvastatin 10 mg tablet 10 mg PO DAILY Cholesterol 04/05/19 06/14/21 Previous Rx's Medication Instructions Recorded meclizine 25 mg chewable tablet 25 mg PO TID #10 tabs 09/03/22 (Antivert) Allergies Allergy/AdvReac Type Severity Reaction Status Date / Time gabapentin Allergy Severe Seizure Verified 06/14/21 14:51 [facility] Disclaimer: The information contained in this section may have been updated after the patient was seen, as this information can be updated by other users. Social History Smoking Status: Current every day smoker tobacco type: cigarettes packs per day: 1 second hand exposure: No alcohol intake: never substance use type: denies use current occupational status: unemployed Travel in the last 8 weeks: None household members: spouse housing: house current occupational exposures/hazards: No caffeine: Yes ROS Obtained: Yes All systems reviewed & no additional complaints except as documented Physical Exam General General appearance: alert Head Head exam: normocephalic Eye Eye exam: Present PERRL and EOMI; Absent scleral icterus or nystagmus ENT ENT exam: Present mucous membranes moist and TM's normal bilaterally Neck Neck exam: Present full ROM, trachea midline and other (neg bruit ) Respiratory Respiratory exam: Absent respiratory distress Cardiovascular Cardiovascular exam: Present regular rate, systolic murmur and +S4 Abdominal Exam Abdominal exam: Present soft Extremities Exam Extremities exam: Present full ROM Neurological Exam Neurological exam: Present alert, oriented X3, CN II-XII intact and other (gcs=15); Absent motor sensory deficit Psychiatric Psychiatric exam: Present normal affect Skin Skin exam: Absent rash Medical Decision Making Medical Records Medical records reviewed: Yes I reviewed the patient's medical records. Emmanuel Inquiry Pt receiving controlled substance: No
[2022-09-03 22:17] LABS: Erythrocyte Sedimentation Rate 17 mm/hr (0-30)
== END 2022-09-03 21:39 | disposition home or self-care (01) ==
PROVIDERS: Emergency Medicine; Emergency Provider Emergency Medicine; PCP Family Medicine
DX: H81.10 Benign paroxysmal vertigo, unspecified ear (principal); F17.210 Nicotine dependence, cigarettes, uncomplicated
CPT/HCPCS: 70450; 71045; 80053; 81001; 84484; 85025; 85651; 87086; 93005; 99285

== ENCOUNTER → 2022-09-04 11:13 | Outpatient (CLI) | payer MEDICARE, SELFPAY ==
--- NOTE | 2022-09-04 11:18 | XR_ITS ---
FINAL REPORT CLINICAL HISTORY: CHRONIC PAIN L SIDE FINDINGS: AP, lateral, and oblique views of the lumbar spine were obtained. There is no acute fracture. There is grade 1 anterior spondylolisthesis of L4 on 5. There is multilevel degenerative disc disease, most pronounced at L5-S1. Vertebral body height is preserved. There is left paraspinal calcification, may be in the left kidney. IMPRESSION: Multilevel degenerative disc disease with grade 1 anterior spondylolisthesis of L4 on 5. Possible left renal calcification. Reviewed, Interpreted and Dictated by Xiao Blas MD Transcribed by Soraya Tapia Authenticated and [facility]
== END ==
PROVIDERS: PCP Family Medicine; Visit Provider Nurse Practitioner Family
DX: M54.42 Lumbago with sciatica, left side (principal); G89.29 Other chronic pain
CPT/HCPCS: 72110

== ENCOUNTER 2022-10-28 13:00 | Outpatient (RCR) | payer MEDICARE, SELFPAY | END 2022-10-28 13:05 | disposition home or self-care (01) | LOC: PT 13:00 | PROVIDERS: PCP Family Medicine; Visit Provider Nurse Practitioner Family | DX: M54.42 Lumbago with sciatica, left side (principal) | CPT/HCPCS: 97010; 97014; 97110; 97163; G0283 ==

== ENCOUNTER 2023-10-23 08:22 | Outpatient (CLI) | payer MEDICARE, SELFPAY ==
[2023-10-23 08:51] LABS: Basophils # 0.1 K/mm3 (0-0.2); Basophils % 1.4 % (0.1-2.0); Eosinophils # 0.2 K/mm3 (0.0-0.4); Eosinophils % 2.5 % (0.1-12.0); Hematocrit 48.9 % (37.0-47.0); Hemoglobin 15.6 g/dL (12.2-16.2); Lymphocytes # 1.5 K/mm3 (0.7-4.5); Lymphocytes % 21.8 % (10-50); Mean Corpuscular HGB Conc 31.8 g/dL (31.8-35.4); Mean Corpuscular Hemoglobin 30.6 pg (27.0-31.2); Mean Corpuscular Volume 96.2 fl (81-99); Mean Platelet Volume 7.8 fl (7.4-10.4); Monocytes # 0.3 K/mm3 (0.1-1.0); Monocytes % 4.6 % (1.7-9.3); Neutrophils # 4.8 K/mm3 (1.8-7.8); Neutrophils % 69.7 % (37.0-80.0); Platelet Count 232 K/mm3 (142-424); Red Blood Count 5.08 M/mm3 (4.20-5.40); Red Cell Distribution Width 14.3 % (11.5-17.5); White Blood Count 6.9 K/mm3 (4.8-10.8)
[2023-10-23 08:57] LABS: Creatinine,Urine Random 73 mg/dL (Not Estab.)
[2023-10-23 09:00] LABS: Microalbumin/Creatinine Ratio 118.7
[2023-10-23 09:06] LABS: Hemoglobin A1C 5.7 % (4.0-6.0)
[2023-10-23 09:17] LABS: Activated Partial Thrombo Time 21.5 seconds (22.8-30.6); INR 0.98 (0.9-1.1); Prothrombin Time 10.6 seconds (10.1-12.5)
[2023-10-23 09:20] LABS: Alanine Aminotransferase 18 U/L (12-78); Albumin Level 4.3 g/dl (3.5-5.0); Albumin/Globulin Ratio 1.6 (1.1-1.8); Alkaline Phosphatase 86 U/L (38-126); Anion Gap 8.9 mEq/L (5-15); Aspartate Amino Transferase 30 U/L (14-36); Bilirubin,Total 0.5 mg/dl (0.2-1.3); Blood Urea Nitrogen 12 mg/dl (7-17); Calcium 9.6 mg/dl (8.4-10.2); Carbon Dioxide 33 mmol/L (22.0-30.0); Chloride 104 mmol/L (98-107); Chol/HDL Ratio 5.5 (1-3.5); Cholesterol 257 mg/dl (140-200); Estimated Glomerular Filt Rate 99 ml/min (>60); GFR (African American) 119 ML/MIN (>60); Globulin 2.7 g/dL (1.3-3.2); Glucose 102 mg/dl (74-100); HDL Cholesterol 47 mg/dl (40-60); Potassium 3.9 mmoL/L (3.5-5.1); Sodium 142 mmol/L (136-145); Triglycerides 160 mg/dl (30-150); VLDL Cholesterol 32 mg/dL (0-40)
[2023-10-23 09:31] LABS: Direct LDL Cholesterol 147.36 mg/dL (100-129)
[2023-10-23 09:37] LABS: 25-OH Vitamin D, Total 42.6 ng/mL (30-100)
[2023-10-23 09:50] LABS: Thyroid Stimulating Hormone 1.65 uIU/mL (0.465-4.68)
== END 2023-10-23 23:59 ==
LOC: LAB 08:24
PROVIDERS: PCP Internal Medicine; Visit Provider Internal Medicine
DX: R53.83 Other fatigue (principal); E05.90 Thyrotoxicosis, unspecified without thyrotoxic crisis or storm; R73.09 Other abnormal glucose; E55.9 Vitamin D deficiency, unspecified; R79.1 Abnormal coagulation profile
CPT/HCPCS: 36415; 80053; 80061; 82043; 82306; 82570; 83036; 84443; 85025; 85610; 85730

== ENCOUNTER 2023-11-04 09:44 | Outpatient (RCR) | payer MEDICARE, SELFPAY ==
--- NOTE | 2023-11-04 10:53 | HMH.PTOPEV ---
PT Outpatient Evaluation Rehab PT Outpatient Evaluation Start: 11/04/23 09:49 Freq: Status: Active Protocol: Document 11/04/23 10:34 PHORNE (Rec: 11/04/23 10:53 PHORNE [id number]) E-signed By Serafin Seymour, PT Outpatient Therapy Subjective History Subjective History This is the initial PT eval for Bonny Engle, 73 yowf who presents with c/o intermittent dizziness. She reports No specific position changes associated with her symptoms and no true vertigo. She reports dizziness or lightheadedness with sitting up from supine or standing from sitting, but only intermittently. She also reports taking 2 different HTN meds and her PCP is still working to find appropriate control of her symptoms. She also reports intermittent tinnitus and decreased hearing B. New diagnosis of cancer in past 12 No months? Chief Complaint Other Level of pain today (0-10) 0 Pain scale - at its worst (0-10) 0 Balance Eval Hx of Falls Hx Falls No Nystagmus Nystagmus Presence None Timed Up and Go Test 1. Is the Timed Up and Go test result > no or = to 12 seconds? 3. Is the Timed Up and Go Test result < yes 12 seconds? Oculomotor Gaze Oculomotor Gaze Nml: Vergence Smooth Pursuit Saccades VOR Cancellation Cover/Uncover Cross Cover Dynamic Gait Index Test Protocol Gait Level Surface Normal Query Text: Instructions: Walk at your normal speed from here to the next bruno (20'). Grading: Bruno the lowest category that applies. Change in Gait Speed Normal Query Text: Instructions: Begin walking at your normal pace (for 5'), when I tell you go , walk as fast as you can (for 5'). When I tell you slow , walk as slowly as you can (for 5'). Grading: Bruno the lowest category that applies. Gait with Horizontal Head Turns Normal Query Text: Instructions: Begin walking at your normal pace. When I tell you to look right , keep walking straight, but turn you head to the right. Keep looking to the right unit I tell you look left , then keep walking straight and turn your head to the left. Keep your head to the left until I tell you look straight , then keep walking straight, but return you head to the center. Grading: Bruno the lowest category that applies. Gait with Vertical Head Turns Mild Impairment Query Text: Instructions: Begin walking at your normal pace. When I tell you to look up , keep walking staight, but tip your head up. Keep looking up until I tell you to look down , then keep walking straight and tip your head down. Keep your head down until I tell you look straight , then keep walking straight, but return your head to the center. Grading: Bruno the lowest category that applies. Gait and Pivot Turn Mild Impairment Query Text: Instructions: Begin walking at your normal pace. When I tell you turn and stop , turn as quickly as you can to face the opposite direction and stop. Grading: Bruno the lowest category that applies. Step Over Obstacle Normal Query Text: Instructions: Begin walking at your normal speed. When you come to the shoebox, step over it, not around it and keep walking. Grading: Bruno the lowest category that applies. Step Around Obstacles Normal Query Text: Instructions: Begin walking at normal speed. When you come to the first cone (about 6' away), walk around the right side of it. When you come to the second cone (6' past first cone), walk around it to the left. Grading: Bruno the lowest category that applies. Steps Mild Impairment Query Text: Instructions: Walk up these stairs as you would at home. At the top, turn around and walk down. Grading: Bruno the lowest category that applies. Scoring Dynamic Gait Index Score 21 Miscellaneous Dx PT Eval Objective Objective Flavio-Hallpike and Horizontal Roll testing performed without nystagmus noted or symptom reproduction. Finger Rub test: Pt unable to hear finger rub on bilateral ears, but equally poor. Outpatient Therapy Assessment Impairments Problems/Impairmments Impaired Balance Prognosis Rehab Potential Innapropriate for Skilled Therapy Comment Pt signs and symptoms are not indicative of BPPV. Most likely presentation is poorly controlled hypertension combined with seasonal allergies and decreased CN VIII impulses. Clinical Impression Consistent with Diagnosis No Outpatient Therapy Plan of Care Treatment Plan May Include Eval/Re-Eval Yes Frequency Times per week 0 Duration Number of Weeks 0 Addendums This patient is a candidate for social No or vocational rehab? Patient/Guardian verbally acknowledges Yes understanding of treatment program and consents to further treatment? Patient/Guardian verbally acknowledges Yes understanding of diagnosis, prognosis and goals for treatment? Eval Complexity PT Charges [id number] - High Complexity Shoulder/Elbow Eval Shoulder Objective Measurements Elbow Objective Measurements PHYSICIAN CERTIFICATION: I certify the specified therapy services for Bonny Kinza White are required, authorized, and reviewed every 30 days.
== END 2023-11-04 09:50 | disposition home or self-care (01) ==
LOC: PT 09:44
PROVIDERS: Visit Provider Internal Medicine
DX: H81.10 Benign paroxysmal vertigo, unspecified ear (principal)
CPT/HCPCS: 97163

== ENCOUNTER 2023-11-17 20:26 | Emergency (ER) | payer MEDICARE, SELFPAY ==
[2023-11-17 20:28] VITALS: BP 162/89; PULSE 82; RESP 18; TEMP 36.9; O2SAT 96; BMI 25.0
[2023-11-17 20:55] VITALS: BP 162/89; PULSE 73; RESP 16; TEMP 36.9; O2SAT 94
--- NOTE | 2023-11-17 20:55 | ED_ITS ---
Discharge Plan Disposition Chief Complaint: PAIN Prescriptions Prescriptions: No Action valsartan 40 mg tablet 40 mg PO BID 30 Days Qty: 60 2RF albuterol sulfate 90 mcg/actuation HFA aerosol inhaler 1 inh inhalation QID Qty: 8.5 4RF amlodipine 5 mg tablet 5 mg PO DAILY 30 Days Qty: 30 2RF lisinopril 20 mg tablet 20 mg PO DAILY Qty: 90 0RF escitalopram oxalate 5 mg tablet 5 mg PO DAILY Qty: 90 0RF Adult 50 Plus Probiotic 4 billion cell capsule 4,000 mmu cells PO DAILY Qty: 90 0RF alendronate 10 mg tablet 10 mg PO DAILY 90 Days Qty: 90 2RF rosuvastatin 20 mg tablet 20 mg PO DAILY Qty: 30 2RF cyclobenzaprine 5 mg tablet 5 mg PO BID 5 Days Qty: 10 0RF Referrals Follow up/Referrals: Tenzin Xiong DO [Primary Care Provider] - See instructions Activity Restrictions/Add. Instructions Additional Instructions/Restrictions: You have a very small superficial venous thrombosis on the volar aspect of your wrist in the right upper extremity. Please take a daily aspirin you may take other anti-inflammatory medication such as ibuprofen as well. This appears to be far away from any deep vein and is extremely low risk of propagation. However please closely follow-up with primary care doctor or return to the emergency room with any significant worsening or extension of this small hematoma versus clot in the wrist. Please continue to use compression and warm compresses on this as well. Clinical Impressions Clinical Impression: Superficial venous thrombosis of arm Discharge ED Provider: Cherie Hsu General Adult HPI General Chief complaint: PAIN Stated complaint: RT wrist pain, swelling Time Seen by Provider: 11/17/23 20:31 Mode of Arrival: Ambulatory Source of Information: Patient Limitations: No Limitations Description of Symptoms (Recalled from ER Triage Doc. by RN): Pt presnts to ED for R wrist pain, NKI. Pt states she just felt pain and burning, looked down and R wrist was swollen and bruised. Pt is A&O*4 at this time. History of Present Illness HPI narrative: Patient is a 73-year-old female presents today with pain and swelling in an isolated area of the volar aspect of the wrist on the right upper extremity. No injuries that she is aware if she is not on any anticoagulation. She has no other symptoms in the upper extremity other than is localized area pain and swelling. Related Data Previous Rx's Medication Instructions Recorded escitalopram oxalate 5 mg tablet 5 mg PO DAILY Anxiety #90 tabs 10/23/23 lactobacillus combination no.9 4 4,000 mmu cells PO DAILY probiotic 10/23/23 billion cell capsule (Adult 50 #90 caps Plus Probiotic) lisinopril 20 mg tablet 20 mg PO DAILY BP #90 tabs 10/23/23 alendronate 10 mg tablet 10 mg PO DAILY 90 days #90 tabs 10/27/23 amlodipine 5 mg tablet 5 mg PO DAILY 30 days #30 tabs 10/29/23 rosuvastatin 20 mg tablet 20 mg PO DAILY #30 tabs 11/03/23 cyclobenzaprine 5 mg tablet 5 mg PO BID 5 days #10 tabs 11/06/23 albuterol sulfate 90 mcg/actuation 1 inh inhalation QID #8.5 grams 11/10/23 aerosol inhaler valsartan 40 mg tablet 40 mg PO BID 30 days #60 tabs 11/10/23 Allergies Allergy/AdvReac Type Severity Reaction Status Date / Time gabapentin Allergy Severe Seizure Verified 11/10/23 11:15 bismuth subsalicylate AdvReac Verified 11/10/23 11:15 [From Pepto-Bismol] [facility] Disclaimer: The information contained in this section may have been updated after the patient was seen, as this information can be updated by other users. Medical History Arm bruise Patient has bruising on the arm that is a bit concerning. She states that these just happened . The skin is quite thin but will check CBC etc. as well as a PT/INR and PTT. COPD with chronic bronchitis Social History Smoking Status: Current every day smoker tobacco type: cigarettes packs per day: 1 second hand exposure: No alcohol intake: never substance use type: denies use current occupational status: unemployed and retired Travel in the last 8 weeks: None household members: spouse housing: house current occupational exposures/hazards: No caffeine: Yes ROS Obtained: Yes All systems reviewed & no additional complaints except as documented Physical Exam General General appearance: alert and in no apparent distress Respiratory Respiratory exam: Present normal lung sounds bilaterally Cardiovascular Cardiovascular exam: Present regular rate and normal rhythm Expanded Upper Extremity Exam Right: Hand exam: Present other (Normal venous exam normal capillary refill neurovascular intact distal) Hand L/R front image: 2 1. other (palpable cord ) 2. other (mild erythema and pain ) Neurological Exam Neurological exam: Present alert and oriented X3 Medical Decision Making Emmanuel Inquiry Pt receiving controlled substance: No Vital Signs: 11/17/23 20:28 Temperature 98.4 F Temperature Source Oral Pulse Rate [Left] 82 Respiratory Rate 18 Blood Pressure [Right Radial Artery] 162/89 H Blood Pressure Mean [Right Radial Artery] 113 02 Sat by Pulse Oximetry 96 Oxygen Delivery Method Room Air Orders (Tests/Meds): ORDERS Category Date Time Status POCUS Point of Care (ER Only) Stat Exams 11/17/23 20:36 Taken Medical Decision Narrative: Patient is a 73-year-old female presents today with a spontaneous pain and swelling in the volar aspect of the right wrist. She appears to have a varicosity that either spontaneously ruptured or became thrombosed. However on bedside ultrasound no definitive intravascular thrombosis was noted rather some subcutaneous edema and a subcutaneous small hematoma noted. Thus the diagnosis is most likely a ruptured superficial varicose vein/superficial vein with a small surrounding hematoma versus a superficial venous thrombosis. There is not a lot of phlebitis associated with this. Nonetheless she has been advised to take a daily aspirin use compression and warm compresses. This is far away from any deep venous system and therefore is very low likely from a propagation and DVT standpoint and would not require anticoagulation. I have advised that she follow-up closely with the primary care doctor to ensure resolution of this and also to return to the emergency department any significant worsening of her symptoms. Procedures Miscellaneous Procedure Procedure Performed: Limited soft tissue ultrasound Indication: Pain and swelling Identified structures: Location: Volar aspect of the right wrist Findings: Completely compressible veins subcutaneous hematoma noted Impression: Small subcutaneous hematoma with no obvious thrombosis that is intravascular Images were saved to permanent archive The study was technically adequate Soft Tissue CPT Codes: CPT Upper extremity: [id number] This study was performed by me, and I personally interpreted all images/videos. Based on my clinical judgement, these images were adequate and did not necessitate further imaging. Critical Care Critical Care Time Critical Care Time: No
== END 2023-11-17 21:02 | disposition home or self-care (01) ==
LOC: ER 20:33
PROVIDERS: Emergency Provider Student in an Organized Health Care Education/Training Program; PCP Internal Medicine
DX: I82.611 Acute embolism and thrombosis of superficial veins of right upper extremity (principal); M25.531 Pain in right wrist
CPT/HCPCS: 99284

== ENCOUNTER 2023-11-30 09:09 | Outpatient (CLI) | payer MEDICARE, SELFPAY ==
--- NOTE | 2023-11-30 09:10 | XR_ITS ---
FINAL REPORT TECHNIQUE: Bone mineral density was calculated of the lumbar spine and hip. CLINICAL HISTORY: ostoeporosis COMPARISON: None FINDINGS: Using L1-4, the bone mineral density of the spine is 0.877 g/cm2, corresponding to T-score of -1.5. Using the left hip, the bone mineral density of the femoral neck is 0.654 g/cm2, corresponding to a T-score of -2.4. Using the right hip, the bone mineral density of the femoral neck is 0.760 g/cm?, corresponding to a T-score of -1.5. NOTE: T-score: Standard deviation compared with peak bone mass of young adult mean. *Following the recommendations of the International Society of Bone densitometry, classification of hip BMD is based on the lower of two T-scores; total hip or femoral neck. IMPRESSION: Diminished bone mineral density of the lumbar spine and bilateral hips consistent with low bone density. Reviewed, Interpreted and Dictated by Bernardo Whitehead III, MD Transcribed by Marycarmen Maldonado Authenticated and [facility]
== END 2023-11-30 23:59 | disposition home or self-care (01) ==
LOC: RAD 09:10
PROVIDERS: PCP Internal Medicine; Visit Provider Internal Medicine
DX: M81.0 Age-related osteoporosis without current pathological fracture (principal); R53.83 Other fatigue
CPT/HCPCS: 77080

== ENCOUNTER 2023-12-03 10:54 | Outpatient (CLI) | payer MEDICARE, SELFPAY ==
--- NOTE | 2023-12-03 | CA_ITS ---
APPROVED REPORT Exam: Pharmacologic Technologist: Eun Waterman, Ht: 5 ft 3 in Wt: 139 lbs BSA: 1.66 m2 HR: 77 bpm BP: 147/74 mmHg Rhythm: NSR Indications: SOA, ABN EKG Medical History Medications: Amlodipine,,,,, Asa,,,,, Escitalopram,,,,, Valsartan,,,,, Cyclobenzaprine,,,,, Albuterol MDI,,,,, RoSUVASTATIN,,,,, Lactobacillus,,,,, Alendronate,,,,, Stress Test Details Test: LEXISCAN HR Resting HR: 81 bpm Max Heart Rate (APMHR): 149 bpm Max HR Achieved: 100 bpm Target HR (85% APMHR): 127 bpm % of APMHR: 67 Recovery HR: 86 bpm BP Resting BP: 147.0/74.0 mmHg Max BP: 152.0/76.0 mmHg Recovery BP: 151.0/80.0 mmHg ECG Resting ECG: NSR, cannot R/O old septal NC Stress ECG: No significant ST changes Arrhythmia: PVCs Clinical Exercise duration: 04:00 min Highest Stage Achieved: Stress ECG Conclusion Symptoms: Leg heaviness, generalized malaise. No CP. Arrhythmias/Ectopy: Occasional PVC. ST-T Changes: No significant ST changes. Conclusion: Unremarkable Lexiscan stress. Myoview images reported separately. Test Summary REST . . . . . . . Resting REST 03:14 . . 81 . 147/ 74 . . Stage 1 01:00 . . 96 . . . . Stage 2 01:00 . . 94 . 142/ 75 . . Stage 3 01:00 . . 89 . 132/ 75 . . Stage 4 01:00 . . 84 . 152/ 76 . Stop exercise at 04:00 RECOVERY 01:00 . . 87 . 143/ 74 . . RECOVERY 02:00 . . 85 . 151/ 80 . . RECOVERY 03:00 . . 85 . 142/ 77 . . RECOVERY 03:17 . . 92 . 142/ 77 . . Electronically signed by : Lilia Farr MD 12/04/2023 23:04:39
--- NOTE | 2023-12-03 10:55 | NM_ITS ---
APPROVED REPORT Exam: Nuclear Stress Test Indication: soa Patient Location: Outpatient Stress Tech: Eun Chau [place] Tech:YASSINE Floyd RT(R)(N) Ht: 5 ft 3 in Wt: 140 lbs Bra Size: 38d HR: 81 bpm BP: 147/74 mmHg BSA: 1.66 m2 TID: 1.20 BMI: 24.7 History: soa Procedure: Patient received 0.4 mg of intravenous Lexiscan, resting heart rate 81 bpm, resting blood pressure 147/74 mmHg, with Lexiscan maximum heart rate achieved was 100 bpm which is 85 % of the maximum predicted heart rate and blood pressure was 152/76 mmHg. With Lexiscan, patient denied any complaint of chest pain. Cardiac Stress and Resting SPECT Images: Cardiac Stress and Resting SPECT images were obtained using technetium 99m Myoview 31.2 mCi stress and 10.70 mCi at rest. Resting and stress imaging in supine and prone positions demonstrate no evidence of fixed or reversible perfusion defects. There is borderline increase in transient ischemic dilatation ratio (TID 1.20), suggestive of possible multivessel disease or balanced ischemia. Gated imaging demonstrates normal global and regional LV systolic function. LVEF is calculated at > 75%. Conclusion: No evidence of fixed or reversible perfusion defects. There is borderline increase in transient ischemic dilatation ratio (TID 1.20), suggestive of possible multivessel disease or balanced ischemia. Gated imaging demonstrates normal global and regional LV systolic function. LVEF is calculated at > 75%. Electronically signed by : Lilia Farr MD 12/04/2023 23:06:13
[2023-12-03] MEDS: REGADENOSON 0.4MG/5ML SYRINGE 0.400000000000000022 MG IV (14:07)
[2023-12-03] MEDS: SODIUM CHLORIDE 0.9% 10ML SYR (RAD ONLY) 10 ML IV ×2 (14:07)
[2023-12-03] MEDS: ISOTOPE MYOVIEW (PER STUDY) 1 DOSE IV (14:07)
== END 2023-12-03 23:59 | disposition home or self-care (01) ==
LOC: RAD 10:55
PROVIDERS: PCP Internal Medicine; Visit Provider Physician Assistant
DX: I20.89 Other forms of angina pectoris (principal)
CPT/HCPCS: 78452; 93017; 93018; A9502; J2785

== ENCOUNTER 2023-12-07 13:44 | Outpatient (CLI) | payer MEDICARE, SELFPAY ==
--- NOTE | 2023-12-07 13:45 | CA_ITS ---
APPROVED REPORT EXAM: Comprehensive 2D, Doppler, and color-flow Echocardiogram Donor Technician: Rosmery Palacios RDCS Ht: 5 ft 3 in Wt: 139lbs BSA: 1.66 BP: 143/89 mmHg Indications: CP COPD HTN SOA SMOKER M-Mode Dimensions RVDd 2.96 cm (0.9-2.6) LA Diam 2.90 cm (1.9-4.0) LVDd 4.33 cm (3.5-5.7) LVDs 2.93 cm (3.5-5.7) IVSd 0.87 cm (0.6-1.1) PWd 0.72 cm (0.6-1.1) EF (Teich) 60.90% FS 32.30% EDV (Teich) 84.40 mL ESV (Teich) 33.00 mL LV Diastology E Decel Time 330 (160-240 msec) E/A Ratio 0.5 Mitral Valve MV E Max Joel. 48.0 (40-130 cm/s) MV A Velocity 92.0 (40-130 cm/s) E/A Ratio 0.52 MV PHT 97.0 ms Left Ventricle The left ventricle is normal size. The left ventricular systolic function is normal. The left ventricular ejection fraction is within the normal range. There is increased LV wall thickness There is normal LV segmental wall motion. Transmitral Doppler flow pattern suggests impaired LV relaxation. LVEF is 55%. Right Ventricle The right ventricle is mildly dilated. The right ventricular systolic function is normal. Atria The left atrium size is normal. The right atrium size is normal. There is no Doppler evidence of interatrial shunt. Aortic Valve The aortic valve is mildly thickened. There is no aortic valvular stenosis. Trace aortic regurgitation. Mitral Valve The mitral valve is normal in structure. No evidence of mitral valve stenosis. Trace mitral regurgitation. Tricuspid Valve The tricuspid valve leaflets are thin and pliable. Trace tricuspid regurgitation. There is insufficient TR jet to estimate RVSP. Pulmonic Valve The pulmonary valve is normal in structure. Trace pulmonic regurgitation. Great Vessels The aortic root is normal in size. The ascending aorta is not well visualized. IVC is normal in size and collapses >50% with inspiration. Pericardium There is no pericardial effusion. Other Information Study Quality: Fair Conclusion Normal LV systolic function. Mild RV dilation with normal RV function. No significant valvular stenosis or regurgitation. Electronically signed by : Lilia Farr MD 12/07/2023 22:25:47
== END 2023-12-07 23:59 | disposition home or self-care (01) ==
LOC: RT 13:45
PROVIDERS: PCP Internal Medicine; Visit Provider Physician Assistant
DX: R06.09 Other forms of dyspnea (principal)
CPT/HCPCS: 93306

== ENCOUNTER 2024-01-05 13:38 | Outpatient (CLI) | payer MEDICARE, SELFPAY ==
--- NOTE | 2024-01-05 13:39 | CT_ITS ---
FINAL REPORT TECHNIQUE: Axial CT images of the chest were obtained without contrast. Low-dose protocol was utilized. This study was performed with techniques to keep radiation doses as low as reasonably achievable (ALARA). Individualized dose reduction techniques using automated exposure control or adjustment of mA and/or kV according to the patient's size were employed. CLINICAL HISTORY: lung cancer screening SMOKER, 1.5 PPD X 40 YEARS COMPARISON: 11/01/2018 FINDINGS: CT CHEST WITHOUT, LOW DOSE SCREENING CT Di Vol: 2.90 mGy DLP: 100.29 mGy*cm There is no axillary, mediastinal, or hilar adenopathy. The heart size is normal. There is no pleural or pericardial effusion. The lung windows show no suspicious mass or nodule. Biapical scarring is noted. Limited images of the upper abdomen demonstrate probable hydronephrosis on the left, new from prior. IMPRESSION: LR Category 1S: 12 month follow-up low-dose chest CT is recommended. Modifier S: Probable new left hydronephrosis. Recommend CT abdomen and pelvis follow-up. Reviewed, Interpreted and Dictated by Edmund Carrillo MD Transcribed by Gloria Moffett Authenticated and [facility]
== END 2024-01-05 23:59 | disposition home or self-care (01) ==
LOC: RAD 13:39
PROVIDERS: PCP Internal Medicine; Visit Provider Internal Medicine
DX: Z87.891 Personal history of nicotine dependence (principal)
CPT/HCPCS: 71271

== ENCOUNTER 2024-01-22 11:35 | Outpatient (CLI) | payer MEDICARE, SELFPAY ==
--- OUTSIDE RECORDS SUMMARY | 2024-01-22 11:38 | XMS_ITS ---
Author Name Ruiz Santos Address [address] [place] [address] Organization Unknown Address [address] [place] [id number] ALLERGIES AND ADVERSE REACTIONS No information ASSESSMENT No information CHIEF COMPLAINT No information MEDICATIONS No information OBJECTIVE DATA No information PHYSICAL EXAMINATION No information TREATMENT PLAN Planned Care Start Date Provider Encounter for Check-up [id number] AC [place] PROBLEMS No information RESULTS No information REVIEW OF SYSTEMS No information SUBJECTIVE DATA No information VITAL SIGNS No information
[2024-01-22 12:09] LABS: Blood Urea Nitrogen 12 mg/dl (7-17); Estimated Glomerular Filt Rate 99 ml/min (>60); GFR (African American) 119 ML/MIN (>60)
== END 2024-01-22 23:59 | disposition home or self-care (01) ==
LOC: LAB 11:37
PROVIDERS: PCP Internal Medicine; Visit Provider Internal Medicine
DX: I25.10 Atherosclerotic heart disease of native coronary artery without angina pectoris (principal); I10 Essential (primary) hypertension; F17.210 Nicotine dependence, cigarettes, uncomplicated
CPT/HCPCS: 36415; 82565; 84520

== ENCOUNTER 2024-01-25 07:31 | Outpatient (CLI) | payer MEDICARE, SELFPAY ==
--- NOTE | 2024-01-25 07:32 | MR_ITS ---
FINAL REPORT CLINICAL HISTORY: Left hydronephrosis COMPARISON: Low-dose chest CT dated 01/05/2024 FINDINGS: Multiplanar MR imaging of the abdomen was performed without and with contrast. There is a 2.6 cm mass in the lateral segment of the left hepatic lobe consistent with a cyst. A 5 mm mass in the posterior right liver dome is difficult to characterize secondary to size but is favored to represent a small cyst. There is a 6 mm cyst in the medial right hepatic lobe. There is no evidence of biliary ductal dilatation. The patient is status postcholecystectomy. The pancreas and spleen have an unremarkable appearance. Adrenal glands appear normal. There is no renal mass. There is moderate left hydronephrosis. No other mass or adenopathy is identified. No abnormal fluid collection is seen. No abnormal contrast enhancement is seen on the postcontrast images. IMPRESSION: Hepatic lesions are favored to represent cysts. Moderate left hydronephrosis. No abnormal contrast-enhancement. Reviewed, Interpreted and Dictated by Bernardo Whitehead III, MD Transcribed by Amanda Haro Authenticated and [facility]
[2024-01-25] MEDS: GADOTERIDOL INJ 20ML SYRINGE 13 ML IV (08:27)
[2024-01-25] MEDS: 0.9% SODIUM CHLORIDE 20ML VIAL 10 ML IV (08:27)
== END 2024-01-25 23:59 | disposition home or self-care (01) ==
LOC: RAD 07:32
PROVIDERS: PCP Internal Medicine; Visit Provider Internal Medicine
DX: N13.30 Unspecified hydronephrosis (principal)
CPT/HCPCS: 74183; A9576

== ENCOUNTER 2024-01-28 07:49 | Day surgery (SDC) | payer MEDICARE, SELFPAY ==
[2024-01-28] VITALS (14 sets, daily range): BP systolic 125–164; BP diastolic 70–91; PULSE 46–92; RESP 10–19; TEMP 36.4–36.8; O2SAT 91–96; BMI 24.6
--- NOTE | 2024-01-28 07:05 | IR_ITS ---
APPROVED REPORT Patient Location: Outpatient Steam Fitter Supervisor Maintenance: YASSINE Hernandez RT (R) PROCEDURES Left heart catheterization Left ventriculogram Selective coronary angiogram Drug-eluting stent deployment to the proximal and mid circumflex artery INDICATION Coronary artery disease, High risk abnormal Myoview Informed consent was obtained prior to the procedure. COMPLICATIONS NONE Estimated Blood Loss: LESS THAN 10 ML TECHNIQUE One percent lidocaine used to anesthetize the right anterior aspect of the wrist. The right radial artery was accessed via the Seldinger technique. A 6 Pashto sheath was placed in the right radial artery. 2.5 mg of Verapamil, 800 mcg of nitroglycerin, 1mg Lidocaine and 5000 U Heparin were given through the arterial sheath. The papa catheter was also used to perform left heart catheterization, left ventriculogram and selective coronary angiogram. At the end the diagnostic angiogram therapeutic heparin was administered giving a therapeutic ACT and the guide catheter was placed in left main artery followed by Choice PT extra-support wire down the circumflex artery. A 3 mm x 26 mm Lamont frontier stent was deployed at 14 angelica reducing the stenosis. An additional 3 mm x 8 mm balloon was deployed in the midportion of post dilate a stenotic area at 20 and then 24 angelica. Excellent angiographic results were obtained with [id number] flow being present before and after the procedure. Then the procedure the apparatus was removed the sheath was removed hemostasis was achieved and TR banding patient was transferred to the postop holding in stable condition ANGIOGRAPHIC RESULTS The left main artery Normal The left anterior descending artery Has proximal 20 to 30% smooth stenoses with mid vessel 10 to 20% luminal irregularities The circumflex artery Nondominant with proximal 50% stenosis extending into a concentric 70 to 80% stenosis and then supplying a large second obtuse marginal artery The right coronary artery Is a dominant vessel and has proximal 40 to 50% stenosis with mid vessel 30 to 40% stenoses The FIGUEROA ventriculogram reveals Hyperdynamic at 75% The left ventricular end-diastolic pressure 20 mmHg IMPRESSION Severe single-vessel coronary disease as described above Successful stenting of the circumflex artery severe disease reduced to 0% with 1 drug-eluting stent Mild disease throughout the LAD with moderate disease in the proximal dominant right coronary Hyperdynamic ventricle Mildly elevated LVEDP PLAN 1. Effient 10 mg daily plus aspirin 81 mg daily 2. LDL less than 55 to be achieved with high intensity statin 3. Avoidance of tobacco products 4. Cardiac rehabilitation 5. Treatment of diastolic dysfunction and hyperdynamic ventricle 6. Recommend sleep study Electronically signed by : Dominic Pablo MD 01/28/2024 11:07:14
[2024-01-28 08:24] LABS: Basophils # 0.1 K/mm3 (0-0.2); Basophils % 0.9 % (0.1-2.0); Eosinophils # 0.2 K/mm3 (0.0-0.4); Eosinophils % 2.3 % (0.1-12.0); Hematocrit 43.9 % (37.0-47.0); Hemoglobin 14.6 g/dL (12.2-16.2); Lymphocytes # 2.2 K/mm3 (0.7-4.5); Lymphocytes % 27.7 % (10-50); Mean Corpuscular HGB Conc 33.2 g/dL (31.8-35.4); Mean Corpuscular Hemoglobin 31.4 pg (27.0-31.2); Mean Corpuscular Volume 94.6 fl (81-99); Monocytes # 0.4 K/mm3 (0.1-1.0); Monocytes % 4.7 % (1.7-9.3); Neutrophils # 5.2 K/mm3 (1.8-7.8); Neutrophils % 64.4 % (37.0-80.0); Platelet Count 247 K/mm3 (142-424); Red Blood Count 4.64 M/mm3 (4.20-5.40); Red Cell Distribution Width 14.5 % (11.5-17.5)
[2024-01-28 08:32] LABS: Anion Gap 6.9 mEq/L (5-15); Blood Urea Nitrogen 15 mg/dl (7-17); Calcium 9.6 mg/dl (8.4-10.2); Carbon Dioxide 34 mmol/L (22.0-30.0); Chloride 101 mmol/L (98-107); Creatinine Clearance Estimated 51 mL/min (50-200); Estimated Glomerular Filt Rate 71 ml/min (>60); GFR (African American) 86 ML/MIN (>60); Glucose 108 mg/dl (74-100); Sodium 139 mmol/L (136-145)
[2024-01-28 08:35] LABS: Potassium 2.9 mmoL/L (3.5-5.1)
[2024-01-28] MEDS: VERAPAMIL 2.5MG/ML 2ML VIAL 2.5 MG IV (10:10)
[2024-01-28] MEDS: diphenhydrAMINE 50MG/ML VIAL 50 MG IV (10:10)
[2024-01-28] MEDS: LIDOCAINE 1% 10ML MDV 20 ML IJ (10:11)
[2024-01-28] MEDS: 0.9 % SODIUM CHLORIDE 500 ML 25 ML IV (10:11)
[2024-01-28] MEDS: MIDAZOLAM HCL 1MG/1ML 5ML VIAL 1 MG IV (10:11)
[2024-01-28] MEDS: HEPARIN 1,000 UNITS/500ML NS (CATH LAB) 3000 UNIT IV (10:11)
[2024-01-28] MEDS: HEPARIN 1,000 UNITS/ML 10ML VIAL (CATH LAB) 10000 UNIT IV (10:11)
[2024-01-28] MEDS: NITROGLYCERIN 800MCG/8ML SYR (CATH LAB) 800 MCG IA (10:11)
[2024-01-28] MEDS: FENTANYL 100MCG/2ML VIAL 50 MCG IV (10:12)
[2024-01-28] MEDS: PRASUGREL 10MG TAB 60 MG PO (11:05)
[2024-01-28] MEDS: IOPAMIDOL-370 (76%);100ML BOTTLE 90 ML IV (11:12)
[2024-01-28 11:13] LABS: CATHL Activated Clotting Time 370 SEC (74-125)
--- NOTE | 2024-01-28 12:16 | SUR.PHASEII ---
PT. up in the recliner with lunch tray. No complaints at this time. VS stable, daughter at bedside.
[2024-01-28] MEDS: ONDANSETRON 4MG/2ML VIAL 4 MG IV (13:36)
== END 2024-01-28 14:59 | disposition home or self-care (01) ==
PROVIDERS: PCP Internal Medicine; Visit Provider Internal Medicine
DX: R94.30 Abnormal result of cardiovascular function study, unspecified (principal); R06.00 Dyspnea, unspecified; I25.10 Atherosclerotic heart disease of native coronary artery without angina pectoris; I10 Essential (primary) hypertension; Z79.899 Other long term (current) drug therapy; F17.210 Nicotine dependence, cigarettes, uncomplicated
CPT/HCPCS: 80048; 85025; 85347; 92928; 93458; 99152; C1725; C1769; C1874; C9600; J1644; J2250; J2405; J3010; Q9967

== ENCOUNTER 2024-02-01 12:39 | Outpatient (CLI) | payer MEDICARE, SELFPAY ==
[2024-02-01 13:20] LABS: Basophils % 0.4 % (0.1-2.0); Eosinophils # 0.1 K/mm3 (0.0-0.4); Eosinophils % 1.3 % (0.1-12.0); Hematocrit 43.1 % (37.0-47.0); Hemoglobin 14.5 g/dL (12.2-16.2); Lymphocytes # 2.3 K/mm3 (0.7-4.5); Lymphocytes % 24.4 % (10-50); Mean Corpuscular HGB Conc 33.7 g/dL (31.8-35.4); Mean Corpuscular Volume 91.9 fl (81-99); Mean Platelet Volume 8.2 fl (7.4-10.4); Monocytes # 0.6 K/mm3 (0.1-1.0); Neutrophils # 6.4 K/mm3 (1.8-7.8); Neutrophils % 67.9 % (37.0-80.0); Platelet Count 286 K/mm3 (142-424); Red Blood Count 4.68 M/mm3 (4.20-5.40); Red Cell Distribution Width 14.5 % (11.5-17.5); White Blood Count 9.5 K/mm3 (4.8-10.8)
[2024-02-01 13:44] LABS: Anion Gap 9.7 mEq/L (5-15); Blood Urea Nitrogen 14 mg/dl (7-17); Calcium 10.1 mg/dl (8.4-10.2); Carbon Dioxide 37 mmol/L (22.0-30.0); Chloride 96 mmol/L (98-107); Estimated Glomerular Filt Rate 71 ml/min (>60); GFR (African American) 86 ML/MIN (>60); Glucose 97 mg/dl (74-100); Potassium 3.7 mmoL/L (3.5-5.1); Sodium 139 mmol/L (136-145)
== END 2024-02-01 23:59 | disposition home or self-care (01) ==
LOC: LAB 12:41
PROVIDERS: PCP Internal Medicine; Visit Provider Internal Medicine
DX: I25.10 Atherosclerotic heart disease of native coronary artery without angina pectoris (principal)
CPT/HCPCS: 36415; 80048; 85025

== ENCOUNTER → 2024-02-26 07:45 | Outpatient (CLI) | payer MEDICARE, SELFPAY | LOC: SL 07:47 | PROVIDERS: PCP Internal Medicine; Visit Provider Physician Assistant | DX: G47.33 Obstructive sleep apnea (adult) (pediatric); G47.36 Sleep related hypoventilation in conditions classified elsewhere | CPT/HCPCS: G0399 ==

== ENCOUNTER 2024-03-08 09:59 | Outpatient (CLI) | payer MEDICARE, SELFPAY ==
[2024-03-08 18:53] LABS: Hemoglobin A1C 5.7 % (4.0-6.0)
[2024-03-08 19:31] LABS: Microalbumin/Creatinine Ratio 42.2
[2024-03-08 19:40] LABS: Alanine Aminotransferase 23 U/L (12-78); Albumin Level 3.9 g/dl (3.5-5.0); Albumin/Globulin Ratio 1.2 (1.1-1.8); Alkaline Phosphatase 76 U/L (38-126); Anion Gap 9.3 mEq/L (5-15); Aspartate Amino Transferase 31 U/L (14-36); Bilirubin,Total 0.4 mg/dl (0.2-1.3); Blood Urea Nitrogen 19 mg/dl (7-17); Calcium 9.5 mg/dl (8.4-10.2); Carbon Dioxide 33 mmol/L (22.0-30.0); Chloride 101 mmol/L (98-107); Chol/HDL Ratio 2.5 (1-3.5); Cholesterol 124 mg/dl (140-200); Estimated Glomerular Filt Rate 71 ml/min (>60); GFR (African American) 86 ML/MIN (>60); Globulin 3.2 g/dL (1.3-3.2); Glucose 103 mg/dl (74-100); HDL Cholesterol 50 mg/dl (40-60); Potassium 3.3 mmoL/L (3.5-5.1); Sodium 140 mmol/L (136-145); Total Protein,Serum 7.1 g/dl (6.3-8.2); Triglycerides 123 mg/dl (30-150); VLDL Cholesterol 25 mg/dL (0-40)
[2024-03-08 19:51] LABS: Direct LDL Cholesterol 41.63 mg/dL (100-129)
[2024-03-08 19:57] LABS: Creatinine,Urine Random 138 mg/dL (Not Estab.)
== END 2024-03-08 23:59 | disposition home or self-care (01) ==
LOC: LAB.DROPOF 03-09 09:59
PROVIDERS: PCP Internal Medicine; Visit Provider Internal Medicine
DX: Z13.1 Encounter for screening for diabetes mellitus (principal); I10 Essential (primary) hypertension; R73.03 Prediabetes; F17.210 Nicotine dependence, cigarettes, uncomplicated
CPT/HCPCS: 80053; 80061; 82043; 82570; 83036

== ENCOUNTER 2024-03-23 18:53 | Outpatient (CLI) | payer MEDICARE, SELFPAY ==
[2024-03-23 19:11] LABS: Hemoglobin A1C 5.6 % (4.0-6.0)
== END 2024-03-23 23:59 | disposition home or self-care (01) ==
LOC: LAB.DROPOF 18:54
PROVIDERS: PCP Nurse Practitioner Family; Visit Provider Nurse Practitioner Family
DX: R73.03 Prediabetes (principal); Z95.5 Presence of coronary angioplasty implant and graft
CPT/HCPCS: 83036; 84132

== ENCOUNTER 2024-03-28 09:51 | Outpatient (CLI) | payer MEDICARE, SELFPAY ==
[2024-03-28 22:14] LABS: Chloride 98 mmol/L (98-107); Potassium 3.2 mmoL/L (3.5-5.1); Sodium 136 mmol/L (136-145)
[2024-03-28 22:17] LABS: Blood Urea Nitrogen 18 mg/dl (7-17); Estimated Glomerular Filt Rate 82 ml/min (>60); GFR (African American) 100 ML/MIN (>60)
[2024-03-28 22:18] LABS: Anion Gap 7.2 mEq/L (5-15); Calcium 8.7 mg/dl (8.4-10.2); Carbon Dioxide 34 mmol/L (22.0-30.0); Glucose 90 mg/dl (74-100)
== END 2024-03-28 23:59 | disposition home or self-care (01) ==
LOC: LAB.DROPOF 03-29 09:52
PROVIDERS: PCP Nurse Practitioner Family; Visit Provider Nurse Practitioner Family
DX: I10 Essential (primary) hypertension (principal)
CPT/HCPCS: 80048

== ENCOUNTER 2024-04-21 11:10 | Outpatient (CLI) | payer MEDICARE, SELFPAY ==
[2024-04-21 18:40] LABS: Anion Gap 6.1 mEq/L (5-15); Blood Urea Nitrogen 13 mg/dl (7-17); Calcium 9.3 mg/dl (8.4-10.2); Carbon Dioxide 35 mmol/L (22.0-30.0); Chloride 98 mmol/L (98-107); Estimated Glomerular Filt Rate 71 ml/min (>60); GFR (African American) 85 ML/MIN (>60); Glucose 104 mg/dl (74-100); Potassium 3.1 mmoL/L (3.5-5.1); Sodium 136 mmol/L (136-145)
== END 2024-04-21 23:59 | disposition home or self-care (01) ==
LOC: LAB.DROPOF 04-22 11:11
PROVIDERS: PCP Family Medicine; Visit Provider Family Medicine
DX: E87.6 Hypokalemia (principal)
CPT/HCPCS: 80048

== ENCOUNTER 2024-05-05 18:13 | Outpatient (CLI) | payer MEDICARE, SELFPAY ==
[2024-05-05 18:32] LABS: Chloride 100 mmol/L (98-107); Sodium 137 mmol/L (136-145)
[2024-05-05 18:33] LABS: Potassium 3.4 mmoL/L (3.5-5.1)
[2024-05-05 18:36] LABS: Anion Gap 10.4 mEq/L (5-15); Blood Urea Nitrogen 11 mg/dl (7-17); Calcium 9.4 mg/dl (8.4-10.2); Carbon Dioxide 30 mmol/L (22.0-30.0); Estimated Glomerular Filt Rate 82 ml/min (>60); GFR (African American) 100 ML/MIN (>60); Glucose 87 mg/dl (74-100)
== END 2024-05-05 23:59 | disposition home or self-care (01) ==
LOC: LAB.DROPOF 18:14
PROVIDERS: PCP Internal Medicine; Visit Provider Internal Medicine
DX: E87.6 Hypokalemia (principal)
CPT/HCPCS: 80048

== ENCOUNTER 2024-06-08 14:33 | Outpatient (CLI) | payer MEDICARE, SELFPAY ==
[2024-06-08 14:53] LABS: Basophils # 0.1 K/mm3 (0-0.2); Basophils % 0.6 % (0.1-2.0); Eosinophils # 0.2 K/mm3 (0.0-0.4); Eosinophils % 2.2 % (0.1-12.0); Hematocrit 39.3 % (37.0-47.0); Hemoglobin 13.3 g/dL (12.2-16.2); Lymphocytes # 2.3 K/mm3 (0.7-4.5); Lymphocytes % 24.8 % (10-50); Mean Corpuscular HGB Conc 33.9 g/dL (31.8-35.4); Mean Corpuscular Hemoglobin 30.6 pg (27.0-31.2); Mean Corpuscular Volume 90.2 fl (81-99); Mean Platelet Volume 7.4 fl (7.4-10.4); Monocytes # 0.5 K/mm3 (0.1-1.0); Monocytes % 5.2 % (1.7-9.3); Neutrophils # 6.3 K/mm3 (1.8-7.8); Neutrophils % 67.1 % (37.0-80.0); Platelet Count 242 K/mm3 (142-424); Red Blood Count 4.36 M/mm3 (4.20-5.40); Red Cell Distribution Width 14.4 % (11.5-17.5); White Blood Count 9.4 K/mm3 (4.8-10.8)
[2024-06-08 15:28] LABS: Chloride 101 mmol/L (98-107); Sodium 136 mmol/L (136-145)
[2024-06-08 15:29] LABS: Potassium 3.4 mmoL/L (3.5-5.1)
[2024-06-08 15:31] LABS: Blood Urea Nitrogen 12 mg/dl (7-17); Estimated Glomerular Filt Rate 62 ml/min (>60); GFR (African American) 74 ML/MIN (>60)
[2024-06-08 15:32] LABS: Anion Gap 7.4 mEq/L (5-15); Calcium 8.9 mg/dl (8.4-10.2); Carbon Dioxide 31 mmol/L (22.0-30.0); Glucose 86 mg/dl (74-100)
== END 2024-06-08 23:59 | disposition home or self-care (01) ==
LOC: LAB 14:35
PROVIDERS: PCP Internal Medicine; Visit Provider Internal Medicine
DX: I25.10 Atherosclerotic heart disease of native coronary artery without angina pectoris (principal); I10 Essential (primary) hypertension
CPT/HCPCS: 36415; 80048; 85025

== ENCOUNTER 2024-07-15 08:51 | Emergency (ER) | payer MEDICARE, SELFPAY ==
[2024-07-15 09:50] VITALS: BP 127/60; PULSE 72; RESP 19; TEMP 36.6; O2SAT 95; BMI 26.7
--- NOTE | 2024-07-15 09:57 | XR_ITS ---
FINAL REPORT CLINICAL HISTORY: pain in back of knee COMPARISON: None FINDINGS: RIGHT KNEE 3 views of the right knee were obtained. There is no acute fracture or dislocation. The bones are osteopenic. Visualized joint spaces are normally aligned. Soft tissues are unremarkable. IMPRESSION: No acute bony abnormality. Reviewed, Interpreted and Dictated by William Barton MD Transcribed by Gloria Moffett Authenticated and [facility]
--- NOTE | 2024-07-15 10:03 | ED_ITS ---
Discharge Plan Disposition Patient Disposition: Home, Self-Care Condition: Good Prescriptions Prescriptions: No Action albuterol sulfate 90 mcg/actuation HFA aerosol inhaler 1 inh inhalation QID Qty: 8.5 4RF aspirin [Adult Aspirin Regimen] 81 mg tablet,delayed release (DR/EC) 81 mg PO DAILY Qty: 90 3RF clopidogrel [Plavix] 75 mg tablet 75 mg PO DAILY Qty: 90 3RF rosuvastatin [Crestor] 40 mg tablet 40 mg PO DAILY Qty: 90 3RF chlorthalidone 25 mg tablet 25 mg PO QDAY Qty: 90 3RF valsartan 80 mg tablet 80 mg PO BID Qty: 180 3RF ranolazine 500 mg tablet extended release 12 hr 500 mg PO BID Qty: 60 5RF cyclobenzaprine 5 mg tablet 5 mg PO BID PRN escitalopram oxalate 5 mg tablet 5 mg PO DAILY Qty: 90 3RF alendronate 10 mg tablet 10 mg PO DAILY Qty: 30 2RF Trelegy Ellipta 100-62.5-25 mcg blister with device 1 inh inhalation Patient Comments: INHALE 1 PUFF BY MOUTH EVERY DAY DIRECTED Adult 50 Plus Probiotic 4 billion cell capsule 4,000 mmu cells PO DAILY Qty: 90 0RF potassium chloride 20 mEq tablet,ER particles/crystals 20 meq PO DAILY Qty: 90 0RF Referrals Follow up/Referrals: Tenzin Xiong DO [Primary Care Provider] - See instructions Gideon Cool DO [Staff Physician] - See instructions (Call office for appointment) Activity Restrictions/Add. Instructions Additional Instructions/Restrictions: *weight bearing as tolerated *RICE, Rest the extremity, Ice 15-20 minutes 3-4 times daily, Compress- wear the angel wrap as discussed as much as possible to help reduce swelling and pain, Elevate the extremity when at rest *Angel wrap is for support and help control swelling, use it except in the shower. Be sure that is not to tight but not to loose either *Elevate when resting? *Ibuprofen every 6-8 hours as needed for pain an inflammation. If need something more can take Tylenol in between doses of Ibuprofen to help Immediately follow up with your family doctor for new or worsening of symptoms, or no noticeable improvement over the next 3-5 days Follow up with Orthopedics if no improvement for further evaluation Clinical Impressions Clinical Impression: Knee pain Instructions Patient Instructions: DI for Knee Pain Print Language Print Language: [place] Discharge ED Provider: Terri Dup[place] [facility] [place] General Stated complaint: right knee painful and swollen Mode of Arrival: Ambulatory Source of Information: Patient Limitations: No Limitations Time Seen by Provider: 07/15/24 10:03 Description of Symptoms (Recalled from Triage Doc. by RN): PATIENT C/O PAIN BEHIND RIGHT KNEE. 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 AND THINKS SHE HYPEREXTENDED HER KNEE HEENT Symptoms (Recalled from RN notes): No Resp Symptoms (Recalled from RN notes): No Skin Symptoms (Recalled from RN notes): No MS Symptoms (Recalled from RN notes): Yes Functional Status (Recalled from RN notes): WNL History of Present Illness Provider Complaint: Patient states that she was standing on some books trying to reach some [employer] decorations and thinks she may have pulled something in the back of her right knee States that she has been having pain in the back of her right knee with movement and walking since thinks she may have hyperextended it and it hasnt got any better Denies falling or hitting knee Related Data Home Medications ?Medication ?Instructions ?Recorded ?Confirmed cyclobenzaprine 5 mg tablet 5 mg PO BID PRN 11/24/23 06/07/24 fluticasone fur. 100 mcg-umeclid 1 inh inhalation 03/23/24 06/07/24 62.5 mcg-vilant 25 mcg inhalat.powder (Trelegy Ellipta) Previous Rx's ?Medication ?Instructions ?Recorded lactobacillus combination no.9 4 4,000 mmu cells PO DAILY probiotic 10/23/23 billion cell capsule (Adult 50 #90 caps Plus Probiotic) albuterol sulfate 90 mcg/actuation 1 inh inhalation QID #8.5 grams 11/10/23 aerosol inhaler aspirin 81 mg tablet,delayed 81 mg PO DAILY #90 tabs 02/08/24 release (Adult Aspirin Regimen) chlorthalidone 25 mg tablet 25 mg PO QDAY #90 tabs 02/08/24 clopidogrel 75 mg tablet (Plavix) 75 mg PO DAILY #90 tabs 02/08/24 rosuvastatin 40 mg tablet (Crestor) 40 mg PO DAILY #90 tabs 02/08/24 valsartan 80 mg tablet 80 mg PO BID #180 tabs 02/08/24 alendronate 10 mg tablet 10 mg PO DAILY #30 tabs 05/05/24 escitalopram oxalate 5 mg tablet 5 mg PO DAILY Anxiety #90 tabs 05/05/24 potassium chloride 20 mEq 20 meq PO DAILY #90 tabs 05/09/24 tablet,extended release(part/cryst) ranolazine 500 mg tablet,extended 500 mg PO BID #60 tabs 05/10/24 release,12 hr Allergies Allergy/AdvReac Type Severity Reaction Status Date / Time gabapentin Allergy Severe Seizure Verified 06/07/24 10:21 bismuth subsalicylate (From AdvReac Verified 06/07/24 10:21 Pepto-Bismol) Worker's Comp Is this a Worker's Comp case?: No [facility] Disclaimer: The information contained in this section may have been updated after the patient was seen, as this information can be updated by other users. Medical History Coronary artery disease Hypertension Arm bruise COPD with chronic bronchitis Surgical History History of coronary artery stent placement Social History Smoking Status: Current every day smoker tobacco type: cigarettes packs per day: 1 second hand exposure: No alcohol intake: never substance use type: denies use current occupational status: unemployed and retired Travel in the last 8 weeks: None household members: spouse housing: house current occupational exposures/hazards: No caffeine: Yes Have you lived/traveled outside [place] in past 30 days?: No Contact w/someone who lives/traveled outside [place] past 30 days?: No Exposure to someone with infectious disease in past 14 days?: No Do you have a fever (greater than 100.4 F or 38 C)?: No Have you tested positive for COVID-19: No Exposed to someone with COVID-19 in past 14 days?: No Do you have a sore throat?: No Do you have a cough?: No Do you have any weakness?: No Do you have any diarrhea?: No Are you experiencing any unusual bleeding?: No Do you have any muscle aches/pain?: No Do you have any abdominal pain?: No Are you experiencing loss of taste or smell?: No ROS Obtained: Yes All systems reviewed & no additional complaints except as documented and Yes Systems reviewed as appropriate & no additional complaints except as documented Constitutional Constitutional: Reports system reviewed and no additional complaints, except as documented and Reports as per HPI ENT Ears, Nose, Mouth, and Throat: Reports system reviewed and no additional complaints, except as documented and Reports as per HPI Cardiovascular Cardiovascular: Reports system reviewed and no additional complaints, except as documented and Reports as per HPI Respiratory Respiratory: Reports system reviewed and no additional complaints, except as documented and Reports as per HPI Gastrointestinal Gastrointestingal: Reports system reviewed and no additional complaints, except as documented and as per HPI Musculoskeletal Musculoskeletal: Reports system reviewed and no additional complaints, except as documented, Reports as per HPI and Reports other (pain behind right knee after hyperextending it trying to reach something) Physical Exam General General appearance: alert and in no apparent distress ENT ENT exam: Present normal exam, normal oropharynx, mucous membranes moist and TM's normal bilaterally Respiratory Respiratory exam: Present normal lung sounds bilaterally; Absent respiratory distress or wheezes Cardiovascular Cardiovascular exam: Present regular rate, normal rhythm and normal heart sounds Expanded Lower Extremity Exam Right: Leg image: 2 1. reports tenderness, feeling of tightness, no redness, no discoloration noted Knee exam: Present tenderness; Absent swelling, abrasion, laceration, ecchymosis, deformity or erythema Lower leg exam: Present normal inspection Ankle exam: Present normal inspection Foot/toe exam: Present normal inspection Neurological Exam Neurological exam: Present alert, oriented X3 and normal gait Medical Decision Making Medical Records Screening: Per USPSTF and CDC recommendations, given the prevalence of disease in our region, it is our hospital?s policy to screen for HIV and viral Hepatitis for all patients aged 18 and over and those with ongoing risk factors. Emmanuel Inquiry Pt receiving controlled substance: No Emmanuel was queried for this patient: No Vital Signs: 07/15/24 09:50 Temperature 97.9 F Temperature Source Oral Pulse Rate [Left Brachial] 72 Respiratory Rate 19 Blood Pressure [Left Arm] 127/60 Blood Pressure Mean [Left Arm] 82 Blood Pressure Source [Left Arm] Automatic Cuff Blood Pressure Position [Left Arm] Sitting 02 Sat by Pulse Oximetry 95 Oxygen Delivery Method Room Air Orders (Tests/Meds): ORDERS Category Date Time Status Knee XR right 3 views [XR knee RT 3V] Stat Exams 07/15/24 09:57 Ordered Radiology Data #1: Image(s): Knee Image Reviewed: Yes I have reviewed radiologist's interpretation No acute bony abnormality
[2024-07-15 11:27] VITALS: BP 127/60; PULSE 72; RESP 19; TEMP 36.6; O2SAT 95
== END 2024-07-15 11:32 | disposition home or self-care (01) ==
PROVIDERS: Emergency Provider Nurse Practitioner; PCP Internal Medicine
DX: M25.561 Pain in right knee (principal)
CPT/HCPCS: 73562; 99213; G0381

== ENCOUNTER 2024-11-11 18:03 | Outpatient (CLI) | payer MEDICARE, SELFPAY ==
[2024-11-11 18:19] LABS: MANUAL DIFFERENTIAL MANUAL DIFFERENTIAL (MANUAL DIFF)
[2024-11-11 18:32] LABS: Basophils % 0.2 % (0.1-2.0); Eosinophils # 0.1 Kmm3 (0.0-0.4); Eosinophils % 0.9 % (0.1-12.0); Hemoglobin 13.2 g/dL (12.2-16.2); Lymphocytes # 1.8 K/mm3 (0.7-4.5); Lymphocytes % 22.4 % (10-50); Mean Corpuscular Hemoglobin 30.5 pg (27.0-31.2); Mean Corpuscular Volume 92.4 fl (81-99); Mean Platelet Volume 10.1 fl (7.4-10.4); Monocytes # 0.6 K/mm3 (0.1-1.0); Monocytes % 7.6 % (1.7-9.3); Neutrophils # 5.6 K/mm3 (1.8-7.8); Neutrophils % 68.7 % (37.0-80.0); Platelet Count 256 K/mm3 (142-424); Red Blood Count 4.33 M/mm3 (4.20-5.40); Red Cell Distribution Width 13.5 % (11.5-17.5); White Blood Count 8.1 K/mm3 (4.8-10.8)
[2024-11-11 18:53] LABS: Alanine Aminotransferase 24 U/L (12-78); Albumin Level 3.7 g/dl (3.5-5.0); Albumin/Globulin Ratio 1.4 (1.1-1.8); Alkaline Phosphatase 69 U/L (38-126); Anion Gap 9.6 mEq/L (5-15); Aspartate Amino Transferase 30 U/L (14-36); Bilirubin,Total 0.4 mg/dl (0.2-1.3); Blood Urea Nitrogen 19 mg/dl (7-17); Calcium 9.3 mg/dl (8.4-10.2); Carbon Dioxide 30 mmol/L (22.0-30.0); Chloride 104 mmol/L (98-107); Chol/HDL Ratio 2.3 (1-3.5); Cholesterol 112 mg/dl (140-200); Estimated Glomerular Filt Rate 55 ml/min (>60); GFR (African American) 66 ML/MIN (>60); Globulin 2.7 g/dL (1.3-3.2); Glucose 95 mg/dl (74-100); HDL Cholesterol 49 mg/dl (40-60); Potassium 3.6 mmoL/L (3.5-5.1); Sodium 140 mmol/L (136-145); Total Protein,Serum 6.4 g/dl (6.3-8.2); Triglycerides 162 mg/dl (30-150); VLDL Cholesterol 32 mg/dL (0-40)
[2024-11-11 19:23] LABS: Eosinophils % 1 % (0-3); Lymphocytes % 31 % (10-50); Monocytes % 9 % (2-9); Neutrophils % 59 % (42-76); Platelet Estimate Normal; RBC Morphology Normal; Total Cells Counted 100
== END 2024-11-11 23:59 | disposition home or self-care (01) ==
LOC: LAB.DROPOF 18:04
PROVIDERS: PCP Family Medicine; Visit Provider Family Medicine
DX: I10 Essential (primary) hypertension (principal)
CPT/HCPCS: 80053; 80061; 85007; 85014; 85018; 85048; 85049

== ENCOUNTER 2024-11-14 09:50 | Outpatient (CLI) | payer MEDICARE, SELFPAY ==
--- OUTSIDE RECORDS SUMMARY | 2024-11-14 09:54 | XMS_ITS | Data Portability ---
Author Organization JOSEPH - FUNMI Castillo SILSB[facility] CLOSED Address [address] [facility] [place] [address] Assessment No assessment recorded. Plan of Treatment Reminders Order Date Submit Date Provider Last Modified By Organization Details Last Modified Time Details Appointments CT SCAN 2024 02:00P M ct_scan Not available Not available Not available RECHECK 2024 02:30P M HEATHER VILLEGAS MD Not available Not available Not available Lab None recorde d. Referral None recorde d. Procedures pulse oximetr y with exercis e (PROC) 2023 [facility], [address] [place] [address], [place] [address], [place], [address], 03/01/2024 12:52:31 Surgeries None recorde d. Imaging CT, chest, w/o contras t 2023 [facility] Radiology [facility], [address] [place] [address], [phone], 11/09/2024 07:57:04 LDCT, chest, for lung cancer screeni ng - The provide r's office will call and schedul e test with Radiolo gy Dept and then the patient will be contact ed with details . 2023 024 [facility] Radiology [facility], [address] [place] [address], [address], 06/28/2024 13:40:29 Medication Orders Trelegy Ellipta 100 mcg-62. 5 mcg-25 mcg powder for inhalat ion 2023 024 [id number], [address] [facility] [address] [place], [id number], 06/28/2024 14:43:48 albuter ol sulf 90 mcg/act uation breath activat ed powder inhaler ,sensor 2023 024 [facility], [address] [facility] [address] [place], [id number], 06/28/2024 14:43:48 Trelegy Ellipta 100 mcg-62. 5 mcg-25 mcg powder for inhalat ion 2023 024 [facility] #32014, [address] [facility] [address] [place], [id number], 03/28/2024 14:31:11 Ventoli n HFA 90 mcg/act uation aerosol inhaler 2023 024 [facility]AR[facility] #67298, [address] [facility] [address] [place], [id number], 03/28/2024 14:31:34 albuter ol sulfate HFA 90 mcg/act uation aerosol inhaler 2023 024 [facility], [address] [facility] [address] [place], [id number], 03/01/2024 11:03:21 Trelegy Ellipta 100 mcg-62. 5 mcg-25 mcg powder for inhalat ion 2023 024 [facility] #70608, [address] [facility] [address] [place], [phone], 03/01/2024 11:14:03 Patient TargetsNo targets recorded. Patient Instructions Encounter Date Encounter Id Patient Instructions Last Modified By Organization Details Last Modified Time 03/01/2024 [id number] JOSE RAUL TOBACCO QUIT LINE [email or web address] Not available 03/01/2024 11:03:21 Lung Cancer Screen Decision Aid [email or web address] Not available 03/01/2024 11:03:21 lung cancer screening eligibility assessment* [email or web address] Not available 03/01/2024 11:03:24 She will have an LDCT scan as soon as possible she will return to see me for review. We will review her response to the Trelegy inhaler . [email or web address] Not available 03/01/2024 12:26:38 03/28/2024 [id number] JOSE RAUL TOBACCO QUIT LINE [email or web address] Not available 03/28/2024 15:36:17 She is doing fairly well with significant improvement in her symptoms I have given her a discount card for Trelegy I have again strongly advised on smoking cessation amedaiyese Not available 03/28/2024 15:43:56 06/28/2024 [id number] I have discussed the new finding of a pulmonary nodule with her she will have a follow-up in 6 months. I have strongly encouraged her on smoking cessation I have reviewed correct inhaler technique with her again. [email or web address] Not available 06/28/2024 14:46:43 Reason for Referral None Reported. Results Created Date Observation Date Name Description Value Unit Range Abnormal Flag Note LastModifiedBy Organization Detail LastModifiedTime 03/01/20 24 03/01/2024 lung cance r scree shanice eligi bilit y asses sment * Age 50-80 YES Not Available [facility] [address], [address], 03/01/2024 10:59:33 03/01/20 24 03/01/2024 lung cance r scree shanice eligi bilit y asses sment * Age 50-77 Traditional Medicare YES Not Available [facility] Pul[facility] [address], [address], 03/01/2024 10:59:33 03/01/20 24 03/01/2024 lung cance r scree shanice eligi bilit y asses sment * Either current smoker or has quit in last 15 years YES Not Available [facility] Pul[facility] [address] [place] [address], [place], [address], 03/01/2024 10:59:33 03/01/20 24 03/01/2024 lung cance r scree shanice eligi bilit y asses sment * Average of one pack a day for 20 years (20 pack years) YES Not Available [facility] Pulmonary [address] [place] [address], [place], [address], 03/01/2024 10:59:33 03/01/20 24 03/01/2024 lung cance r scree shanice eligi bilit y asses sment * Displays signs or symptoms of lung cancer NO Not Available [facility] Pulmonary [address] [place] [address], [place], [address], 03/01/2024 10:59:33 03/01/20 24 03/01/2024 lung cance r scree shanice eligi bilit y asses sment * Shared decision making with patient, Risks and benefits of CT Lung screen discussed YES Not Available [facility] Pul[facility] [address] [place] [address], [place], [address], 03/01/2024 10:59:33 03/01/20 24 03/01/2024 lung cance r scree shanice eligi bilit y asses sment * Smoking cessation counseling provided YES Not Available [facility] Pulmonary [address] [place] [address], [place], [address], 03/01/2024 10:59:33 03/01/20 24 03/01/2024 lung cance r scree shanice eligi bilit y asses sment * Order provided for LDCT YES Not Available [facility] Pul[facility] [address] [place] [address], [place], [address], 03/01/2024 10:59:33 03/01/20 24 03/01/2024 XR, chest , 2 view [place] [facility] [address] [facility] [address], [address] [place] [address] Juany laguerre Name: VICTORINA laguerre : 952 Juany laguerre Orderi ng Provid er: [facility] EXAM DATE: 2023 EXAM: XR CHEST PA/LAT CLINIC AL INFORM ATION: Cough. IMAGES PROVID ED: PA and latera l views of the chest. COMPAR CHET: None. FINDIN GS: Heart size is within normal limits . Lung castillo are clear. IMPRES EMERITA: No acute cardio pulmon lawrence change s. Interp reted By: Tenzin Linares MD Electr onical ly Signed By: Tenzin Linares MD on 024 10:36 AM [email or web address] [facility] Radiology Pulmonary [address] [place], [address], 03/01/2024 13:09:39 03/08/20 24 01/05/2024 CT, chest , w/o contr ast No observ ation record ed. [facility] [address], [place], [address], 03/08/2024 15:54:30 06/28/20 24 06/28/2024 LDCT, chest , for lung cance r scree shanice [facility] [address] [place] [address] Juany laguerre Name: VICTORINA laguerre : 952 Juany laguerre Orderi ng Provid er: [facility] EXAM DATE: 2023 EXAM: CT CHEST LUNG NODULE SCREEN ING CLINIC AL INFORM ATION: Lung cancer screen ing. Histor y of smokin g for 54 pack years. Juany laguerre is a curren t smoker . TECHNI QUE: Multip le axial CT images of the chest were obtain ed withou t inject ion of IV contra st using the low-do se lung cancer screen ing protoc ol. COMPAR CHET: None. NODULE SEARCH : 1. Pleura l-base d 6 mm nodule in the right upper lobe, refere nce image #87 of series 201 OTHER FINDIN GS: AIRWAY S AND LUNGS: Trache a, princi pal bronch i and major bronch ial branch es are patent and normal . Biapic al fibron odular change s, symmet lizandro side to side MEDIAS TINUM: Avni calcif icatio ns are presen t compat ible with old granul omatou s diseas e sequel a. Limite d evalua tion due to absenc e of IV contra st. Aorta, SVC, pulmon lawrence arteri es, pulmon lawrence veins and their major branch es and tribut drake are normal in calibe r. Cardia c size is normal . PLEURA AND CHEST WALL: No pleura l effusi on or mass. No chest wall abnorm ality. UPPER ABDOMI NAL ORGANS : Limite d imagin g of the upper abdome n shows a sizabl e stone in the left renal pelvis with mild dilata tion of the centra l collec ting struct ures. This is incomp letely evalua sea on the study of the chest. This stone measur es 1 cm. Benign -appea ring cyst in left lobe the liver measur ing 3 cm. IMPRES EMERITA: 1. Biapic al fibron odular change of pleura l-base d nodule in the right upper lobe. Recomm end follow -up repeat study in 6 months 2. Minima lly obstru ctive large stone in the left renal pelvis 3. 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 Change : N/A. Lung-R ADS Catego ry: Lung-R ADS catego ry 3 Lung-R ADS Modifi er: None Recall Interv al: 6 months FU. Recomm ended Exam at Recall : CT Chest Lung Nodule Screen ing Interp reted By: Tenzin Linares MD Electr onical ly Signed By: Tenzin Linares MD on 2023 1:35 PM [facility] [address] [place], [address], 06/28/2024 14:30:31 Result Notes None recorded. Problems Name Problem SNOMED Code Status Onset Date Resolution Date Notes Provider Name and Address Organization Details Recorded Time Chronic obstructive pulmonary disease 04038370 Active 2023 HEATHER VILLEGAS MD [address] [place], [address], [facility] 10:54:43 Nicotine dependence 83844278 Active 2023 HEATHER VILLEGAS MD [address] [place], [address], [facility] 10:55:12 Solitary nodule of lung 817290610 Active 2023 HEATHER VILLEGAS MD [address] [place], [address], [facility] 14:37:01 Problem Notes None recorded. Procedures Surgical History Date Name Laterality Status Provider Name and Address Organization Details Recorded Time 03/01/20 24 [facility]/01[facility]20[facility] 09:56:55 03/01/20 24 Diffusion Capacity completed [facility] 03/01/2024 09:57:07 03/01/20 24 Lung Volumes, Plethysmography completed [facility] 03/01/2024 09:56:57 03/01/20 24 Demonstration Aerosol/Generator/N ebulizer/Optichambe r completed [facility] 03/01/2024 09:57:09 03/01/20 24 Pulmonary Function Testing completed HEATHER VILLEGAS MD [address] [place], [address], [facility] 03/01/2024 12:20:40 03/01/20 24 [facility]pirometry with [facility]chodilator [facility]/01/2024 09:57:12 insertion of arterial stent [facility] 03/01/2024 09:28:57 Back Surgery completed Mirnakavitha Malone [facility] 03/01/2024 09:38:03 cholecystectomy [facility] 03/01/2024 09:38:14 hernia repair completed Mirna Kira [facility] 03/01/2024 09:38:23 ligation of bilateral fallopian tubes completed Mirna Kira [facility] 03/01/2024 09:38:46 appendectomy completed Mirna Kira [facility] 03/01/2024 09:39:09 hysterectomy completed Mirna Kira [facility] 03/01/2024 09:39:47 procedure on foot completed Mirna Kira [facility] 03/01/2024 09:40:07 Imaging Results Imaging Date Name Status LastModified by Organiz ation Details LastModified Time 03/01/2024 XR, chest, 2 view completed [facility] Radiology Pulmonary [address] [place], [address], 03/01/2024 13:09:39 01/05/2024 CT, chest, w/o contrast completed [facility] [address], [place], [address], 03/08/2024 15:54:30 06/28/2024 LDCT, chest, for lung cancer screening completed [facility] Radiology [facility] [address] [place], [address], 06/28/2024 14:30:31 Procedure Notes None recorded. Medical Equipment None Reported. Allergies Allergen ID Allergen Name Allergen Category Reaction Reaction Severity Criticality Documentation Date Start Date Code Code System Note Provider Name and Address Organization Details Recorded Time 902428 Pepto-bis mol medicatio n Not available Not available Not available 03/01/2024 52636 RxNorm TURNS TONGU E BLACK Mirna Kira [facility] 09:30:59 900190 gabapenti n medicatio n seizure Not available Not available 03/01/2024 56680 RxNorm Mirna Kira [facility] 09:31:20 Medications Name Sig Start Date Stop Date Status Note LastModified by Organization Details LastModified Time lisinopri l 20 mg tablet Bedtime 03/01 completed Duration : 30 days;Marcos quency: hs;Medic ation Descript ion: lisinopr il; Dosage:1 ; Route:or al; refills: 5; Quantity :30 tablet Not Available Not Available Not Available valsartan 80 mg tablet Take 1 tablet every day by oral route. active Not Available Not Available No t Available Klor-Con 20 mEq oral packet Daily 03/01 completed Duration : 30 days;Marcos quency: daily;Me dication Descript ion: potassiu m chloride ; Dosage:1 ; Route:or al; refills: 0; Quantity :60 powder for reconsti tution Not Available Not Available Not Available chlorthal idone 25 mg tablet Take 1 tablet every day by oral route. active Not Available Not Available No t Available Plavix 75 mg tablet Take 1 tablet every day by oral route. active Not Available Not Available No t Available simvastat in 20 mg tablet Daily 03/01 completed Frequenc y: daily;Me dication Descript ion: simvasta tin; Route:or al; refills: 0 Not Available Not Available Not Available aspirin 81 mg tablet Daily 03/01 completed Duration : 30 days;Marcos quency: daily;Me dication Descript ion: aspirin; Dosage:1 ; Route:or al; refills: 0; Quantity :30 tablet Not Available Not Available Not Available Ventolin HFA 90 mcg/actua tion aerosol inhaler Inhale 2 puffs every 4 hours by inhalati on route. 2023 active Not Available Not Available Not Avai lable Low Dose Aspirin 81 mg tablet,de layed release Take 1 tablet every day by oral route. active Not Available Not Available No t Available rosuvasta tin 40 mg tablet Take 1 tablet every day by oral route. active Not Available Not Available No t Available escitalop brenda 5 mg tablet Take 1 tablet every day by oral route. active Not Available Not Available No t Available omeprazol e 03/01 completed Medicati on Descript ion: omeprazo le; refills: 0 Not Available Not Available Not Available cyclobenz aprine active Not Available Not Available Not Available fiber active Not Available Not Availa ble Not Available Vitamin D3 active Not Available Not Available Not Available Probiotic active Not Available Not Bee ilable Not Available Trelegy Ellipta 100 mcg-62.5 mcg-25 mcg powder for inhalatio n Inhale 1 puff every day by inhalati on route. 2023 active Not Available Not Available Not Avai lable albuterol sulf 90 mcg/actua tion breath activated powder inhaler,s ensor Inhale 2 puffs every 4 hours by inhalati on route. 2023 active Not Available Not Available Not Avai lable Vitals Date Recorded Body weight Body mass index (BMI) Body height Oxygen saturation Oxygen saturation in Arterial blood by Pulse oximetry Heart rate Systolic blood pressure Diastolic blood pressure Provider Name and Address Organization Details Last Updated DateTime 4 23647.9 3 g 24.4 kg/m2 161.29 cm 93 % 93 % 91 /min 118 mm[Hg] 74 mm[Hg] Mirna Malone [facility] 4 09:44:29 Date Recorded Body height Body mass index (BMI) Body weight Heart rate Oxygen saturation Oxygen saturation in Arterial blood by Pulse oximetry Systolic blood pressure Diastolic blood pressure Provider Name and Address Organization Details Last Updated DateTime 4 161.29 cm 25.3 kg/m2 72690.8 9 g 87 /min 96 % 96 % 122 mm[Hg] 60 mm[Hg] Nardaameya Frankkins [facility] 4 14:17:30 Date Recorded Body height Body mass index (BMI) Body weight Oxygen saturation Oxygen saturation in Arterial blood by Pulse oximetry Heart rate Systolic blood pressure Diastolic blood pressure Provider Name and Address Organization Details Last Updated DateTime 4 161.29 cm 26.9 kg/m2 29975.2 2 g 96 % 96 % 85 /min 125 mm[Hg] 79 mm[Hg] Lydia Sanchez [facility] 4 14:30:06 Social History Question Answer Notes LastModified by Organizat ion Details LastModified Time Tobacco Smoking Status Current Every Day Smoker Mirna Malone [facility] 03/01/2024 09:34:01 What Is Your Level Of Alcohol Consumption? None [email or web address] Information not available 03/01/2024 What Was The Date Of Your Most Recent Tobacco Screening? 03/28/2024 Information not available 03/28/2024 At What Age Did You Start Smoking Tobacco? 19 [email or web address] Information not available 03/01/2024 How Much Tobacco Do You Smoke? 1 PPD [email or web address] Information not available 03/01/2024 Do You Use Any Illicit Or Recreational Drugs? No [email or web address] Information not available 03/01/2024 How Many Years Have You Smoked Tobacco? 54 Information not available 03/01/2024 Do You Or Have You Ever Used Any Other Forms Of Tobacco Or Nicotine? No [email or web address] Information not available 03/01/2024 Sex: Unknown Functional Status None recorded. Mental Status None recorded. Family History Relationship Description Onset Age of this Age Resolved Age Notes LastModified by Organization Details LastModified Time Mother Hypoglycemia Not avai lable 03/01/2024 09:32:24 Mother Heart disease [email or web address] Not available 2023 09:32:37 Father Family history of stroke [email or web address] Not available 2023 09:32:50 Medical History Condition Response Hospitalizations Y Arthritis Y Hypertension Y Chronic Obstructive Pulmonary Disease Y High Cholesterol Y Gynecological HistoryNo gynecological history recorded. Obstetrics History GPAL:G 0 P 0 0 0 0 Past Encounters Encounter ID Performer Location Encounter Start Date Encounter Closed Date Diagnosis/Indication Diagnosis SNOMED-CT Code Diagnosis ICD10 Code Diagnosis Note [id number] HEATHER VILLEGAS MD PULMONARY [address] [facility], [address] [place], [place] [address] 03/01/2024 09:19:59 03/01/2024 14:27:34 Chronic obstructive pulmonary disease 75141815 J44.9 She has COPD. It is moderately severe. This is likely from smoking.1. She has an FEV1 FVC ratio of 63 FEV1 is 51% of predicted there was no significan t bronchodil ator response. She has air trapping and hyperinfla tion RV/TLC was 168% of predicted. RV 197% of predicted. She has a moderate reduction in DLCO this corrected with alveolar volume.2. I will start her on long-actin g bronchodil ator I will start her on Trelegy 1 puff daily. We have reviewed current inhaler technique including rinsing her mouth after each use. We also watched a video on correct inhaler use.2. She will continue on the as needed albuterol I have explained to her the difference in the 2 wanting a maintenanc e inhaler and the other being a rescue inhaler.3. I have strongly advised her on smoking cessation. 4. 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 Nicotine dependence 5629 4008 F17.200 She continues to smoke up to a pack of cigarettes a day I have strongly advised on smoking cessation. She is not ready to quit at this time.She does not have a prior LDCT scan.1. We have extensivel y discussed options for smoking cessation. 2. She meets criteria for LDCT scan. [id number] HEATHER VILLEGAS MD PULMONARY [address] [facility], [address] [place] [address] 03/28/2024 14:05:10 03/28/2024 16:23:32 Chronic obstructive pulmonary disease 31699212 J44.9 She has COPD. It is moderately severe. This is likely from smoking.1. She has an FEV1 FVC ratio of 63 FEV1 is 51% of predicted there was no significan t bronchodil ator response. She has air trapping and hyperinfla tion RV/TLC was 168% of predicted. RV 197% of predicted. She has a moderate reduction in DLCO this corrected with alveolar volume. 2. We started her on Trelegy during her last visit she had significan t improvemen t in her symptoms. She is able to do more with very minimal wheezing and cough. We again reviewed correct inhaler technique. The daughter also noticed improvemen t in her breathing. 2. She will continue on the as needed albuterol I have explained to her the role of the different inhalers including a maintenanc e and rescue3. I have strongly advised her on smoking cessation. 4. 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 Nicotine dependence 5629 4008 F17.200 She continues to smoke up to a pack of cigarettes a day I have strongly advised on smoking cessation. She is not ready to quit at this time.LDCT scan from November 2023 shows no evidence of noduleShe will have a follow-up LDCT scan in November 2024. [id number] HEATHER VILLEGAS MD PULMONARY [address] [facility], [address] [place] [address] 06/28/2024 13:48:27 06/28/2024 15:23:27 Solitary nodule of lung 738079344 R91.1 She has a new 6 mm pleural-ba sed nodule in the right upper lobe this was not there previously 1. She has extensive risk factors including her age , smoking history and the location of the nodule2. We will plan for a follow-up CT scan in 6 months. Chronic ob structive pulmonary disease 84258668 J44.9 She has COPD. It is moderately severe. She continues to smoke.1. She has an FEV1 FVC ratio of 63 FEV1 is 51% of predicted there was no significan t bronchodil ator response. She has air trapping and hyperinfla tion RV/TLC was 168% of predicted. RV 197% of predicted. She has a moderate reduction in DLCO this corrected with alveolar volume.2. She remains on Trelegy and she reports significan t improvemen t in her symptoms the daughter also noticed that she is doing much better I have reviewed correct inhaler technique with her.3. She will continue on the as needed albuterol I have explained to her the role of the different inhalers including a maintenanc e and rescue3. I have strongly advised her on smoking cessation. 4. 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 I have advised her on age-approp riate and recommende d vaccines Nicotine dependence 5629 4008 F17.200 She continues to smoke up to a pack of cigarettes a day I have strongly advised her on smoking cessation. She is not ready to quit at this time. She will continue to make efforts to cut back.LDCT scan from November 2023 shows no evidence of nodule however a CT from today shows a right upper lobe nodule measured at 6 mm.She will have a follow-up CT chest without contrast in November 2024. Health Concerns Section Related Observation LastModified by Organization Detai ls LastModified Time None Recorded Concern Status LastModified by Organization Details LastModified Time None Recorded Advance Directives Directive None Recorded Payers Encounter Date Sequence Insurance Name Policy Number Policy Saavedra Covered Member ID Saavedra Member ID Guarantor Name 03/01/2024 1 [place] Bonny A White [id number] Bonny A White 03/01/2024 2 [employer] OPTIONS (MEDICARE SUPPLEMENT) Bonny A White [id number] Bonny A White 03/28/2024 1 [place] Bonny A White [id number] Bonny A White 03/28/2024 2 [employer] OPTIONS (MEDICARE SUPPLEMENT) Bonny A White [id number] Bonny A White 06/28/2024 1 [place] Bonny A White [id number] Bonny A White 06/28/2024 2 [employer] (MEDICARE SUPPLEMENT) Bonny A White [id number] Bonny A White Notes Date Note Type Note Provider Name and Address Organization Details Recorded Time 03/01/2024 text/html This is a 73-year-old female referred by her primary care physician for evaluation of COPD she was diagnosed with COPD due to extensive history of smoking she continues to smoke up to a pack of cigarettes a day for over 60 years now.She has not made any attempts to quit. She denies any significant cough or sputum production and she has no hemoptysis. She does have some shortness of breath. She has occasional breathing her activity is limited by her bad knee she does not think it is due to shortness of breath she uses only albuterolShe does not like vaccinations as she was sick sometime ago when she got the pneumonia vaccine.She was accompanied on this visit by her daughterShe denies any significant weight loss no hemoptysis. HEATHER VILLEGAS MD [facility] [place], [address], [facility] 03/01/2024 12:27:22 03/28/2024 text/html She is doing muc h better no recent exacerbations. She feels overall better she is compliant with the Trelegy she has concerns about the co-pay. She has very minimal cough breathing is better she was accompanied on this visit by her daughter she has also noticed improved breathing. She had an LDCT scan in November 2023 this revealed no significant nodules. She will be due for another one in November 2024. I have reviewed the report HEATHER VILLEGAS MD [address] [place], [address], [facility] 03/28/2024 15:44:17 06/28/2024 text/html She has been doi ng very well without any recent exacerbations. She remains on Trelegy 100 mcg inhaled once a day she reports good compliance she also has as needed albuterol she has rare need for it. She denies any significant cough or sputum production whenever she does cough up stuff she feels better. She feels the Trelegy has really helped her. She does not require oxygen she continues to smoke up to a pack of cigarettes a day HEATHER VILLEGAS MD [address] [place], [address], [facility] 06/28/2024 14:53:04 OBGyn Episode No OBEpisode recorded.
--- NOTE | 2024-11-14 09:55 | XR_ITS ---
FINAL REPORT CLINICAL HISTORY: Chronic pain COMPARISON: None FINDINGS: LEFT KNEE 2 views demonstrate no acute fracture or dislocation. The joint spaces appear normal. No acute soft tissue abnormality is seen. IMPRESSION: No acute bony abnormality. Reviewed, Interpreted and Dictated by William Barton MD Transcribed by Barb Shelton Authenticated and [facility]
--- NOTE | 2024-11-14 09:55 | XR_ITS ---
FINAL REPORT CLINICAL HISTORY: Chronic pain COMPARISON: 07/15/2024 FINDINGS: RIGHT KNEE 2 views demonstrate no acute fracture or dislocation. The medial and lateral compartment joint spaces are preserved. There is a minimal sclerotic focus in the lateral femoral condyle probably related to a small enchondroma, which appears stable. No acute soft tissue abnormality is seen. IMPRESSION: Stable minimal sclerotic focus lateral femoral condyle probably related to a small enchondroma. Reviewed, Interpreted and Dictated by William Barton MD Transcribed by Barb Shelton Authenticated and [facility]
== END 2024-11-14 23:59 | disposition home or self-care (01) ==
LOC: RAD 09:52
PROVIDERS: PCP Family Medicine; Visit Provider Family Medicine
DX: M25.561 Pain in right knee (principal); M25.562 Pain in left knee
CPT/HCPCS: 73560

== ENCOUNTER 2025-02-02 14:45 | Outpatient (CLI) | payer MEDICARE, SELFPAY ==
--- OUTSIDE RECORDS SUMMARY | 2024-02-10 05:30 | XMS_ITS | Continuity of Care Document ---
Author Organization [facility] Address [address] [place] [address] Phone Care Team Providers Care Director Of Blood Name Role Phone Berenice Rajan OD Unavailable Unavailable Allergies, Adverse Reactions, Alerts Substance Reaction Status Criticality Sulfa (Sulfonamide Antibiotics) HivesHives Active No Information PENICILLIN HivesHives Active No Information soap HivesHives Active No Information adhesive HivesHives Active No Information iodine HivesHives Active No Information povidone-iodine HivesHives Active No Informati on adhesive tape Unknown(unknown) Active No Informa tion iodine Unknown(unknown) Active No Informat ion Sulfa (Sulfonamide Antibiotics) Unknown(unknown) Activ e No Information Penicillins Unknown(unknown) Active No Informat ion Medications Medication Instructions Dosage Effective Dates (start - stop) Status Comments meloxicam 7.5 mg tablet take 1 tablet by oral route every day 7.5 MG - Active FLUTICASONE PROPIONATE (unknown strength) take one tablet by oral route once a day Not Available - Active biotin 10,000 mcg capsule take 1 capsule by oral route every day 1 capsule - Active amlodipine 2.5 mg tablet take 1 tablet b y oral route every day 2.5 MG - Active amitriptyline 10 mg tablet take 1 tablet by oral route every day 10 MG - Active hydrochlorothiazide 25 mg tablet take one tablet by oral route once a day - Active Nuvigil 150 mg tablet take one tablet once a day - Active ropinirole 1 mg tablet take one tablet once a day - Active Singulair 10 mg tablet take one tablet once a day - Active Crestor 20 mg tablet take one tablet once a day - Active spironolactone 50 mg tablet take one tablet once a day - Active Vagifem 10 mcg vaginal tablet take one tablet once a day - Active Vitamin D3 1,000 unit capsule take one tablet once a day - Active Vitamin C 1,000 mg tablet take one tablet once a day - Active Calmoseptine 0.44 %-20.6 % topical ointment insert on affected area once day - Active Calcium 600 600 mg calcium (1,500 mg) tablet take one tablet by oral route once a day - Active Advair Diskus 100 mcg-50 mcg/dose powder for inhalation inhale one puff as needed - Active metoprolol succinate ER 100 mg tablet,extended release 24 hr take one tablet once a day - No Longer Active Procedures Procedure Date Eye Exam Established Patient Comprehensi ve 1 Or More Visits Visual Field Examination W I And R Exten ded Uni Or Bi Eye Exam Established Patient Comprehensi ve 1 Or More Visits Eye Exam Established Patient Comprehensi ve 1 Or More Visits OFFICE/OUTPATIENT VISIT, EST, Low Eye Exam Established Patient Comprehensi ve 1 Or More Visits OFFICE/OUTPATIENT VISIT, EST Refraction Eye Exam Established Patient Comprehensi ve 1 Or More Visits Eye Exam Established Patient Comprehensi ve 1 Or More Visits Refraction Eye Exam New Patient Comprehensive 1 Or More Visits Refraction OFFICE/OUTPATIENT VISIT, NEW E RX EXC FACE-MM B9+HANNA 0.5 < CM Eye Exam Established Patient Comprehensi ve 1 Or More Visits Refraction EYE EXAM, NEW PATIENT REFRACTION Advance Directives Directive Yes / No Effective Date File Name No Information Encounters Encounter Description Practice Location Reason(s) For Visit Diagnoses Date Provider Providers Copied on Encounter [facility], [address] [place], [place], [facility], [place] [phone] [facility] PVD (chief complaint) Age-related nuclear cataract, bilateralCorti gaby age-related cataract of right eyeDrusen (degenerative) of macula, bilateralMecha nical entropion of right lower eyelidMechanic al entropion of left lower eyelid Jeffery-2 4 Mohini Ng. [address] [place], [place], [id number], [place]. tel:[phone] Referring Provider: Berenice Paulino, [address] [place], [address]. tel:[phone] [facility], [address] [place], [place], [facility], [place] [phone] [facility] cataracts/drus en/mechanical entropion (chief complaint) Age-related nuclear cataract, bilateralCorti gaby age-related cataract of right eyePVD (posterior vitreous detachment), bilateralMecha nical entropion of right lower eyelidMechanic al entropion of left lower eyelidDystroph ies primarily involving the retinal pigment epitheliumDrus en (degenerative) of macula, bilateral Apr-2 3 Mohini Ng. [address] [place], [place], [id number], [place]. tel:[phone] Referring Provider: No Ref Doc No Referring Doc. [facility], [address] [place], [place], [facility], [place] [phone] [facility] cataract (chief complaint) Age-related nuclear cataract, bilateralCorti gaby age-related cataract of right eyePVD (posterior vitreous detachment), bilateralMecha nical entropion of right lower eyelidMechanic al entropion of left lower eyelidMyopia of both eyesDystrophie s primarily involving the retinal pigment epithelium Oct-2 2 Friendly Ehryn. [address] [facility], [place], [place], [id number], [place]. [phone] Referring Provider: No Ref Doc No Referring Doc. OFFICE/OUTPA TIENT VISIT, EST, Low [facility], [address] [place], [address], [place] tel:[phone] [facility] [place] entropion ref by Dr. Chun (chief complaint) Laxity of eyelid 1 Primitivo Harris. [address] [place], [place], [id number]. tel:[phone] Referring Provider: No Ref Doc No Referring Doc. [facility], [address] [place], [address], [place] tel:[phone] [facility] insurance allowed annual eye exam (chief complaint) Age-related nuclear cataract, bilateralCorti gaby age-related cataract of right eyePVD (posterior vitreous detachment), bilateralMecha nical entropion of right lower eyelidMechanic al entropion of left lower eyelidMyopia of both eyes 1 Lay Dunbar. [address] [place], [id number], [place]. tel:[phone] Referring Provider: No Ref Doc No Referring Doc. OFFICE/OUTPA TIENT VISIT, EST [facility], [address] [place], [address], [place] tel:[phone] [facility] Urgent (chief complaint) Other chronic allergic conjunctivitis 0 Laypavel Dunbar. [address], [place], [place], [id number], [place]. tel:[phone] Referring Provider: Bettina Paulino, [address], [place], [address]. [phone] [facility], [address] [place], [address], [place] tel:[phone] [facility] Yearly Comprehensive Exam (chief complaint) Age-related nuclear cataract, bilateralCorti gaby age-related cataract of right eyePVD (posterior vitreous detachment), bilateralMyopi a of both eyes Oct-2 0 Lay Bettina. [address], [place], [place], [id number], [place]. tel:[phone] Referring Provider: Bettina Paulino, [address], [place], [address]. [phone] [facility] Physician s, [address], [place], [address], [place] tel:[phone] [facility] 1 year cataract check (chief complaint) Cortical age-related cataract of right eyeAge-related nuclear cataract, bilateralMyopi a of both eyesPVD right eye Oct-0 9-201 9 Lay Ehryn. [address], [place], [place], [id number], [place]. tel:[phone] Referring Provider: Meghana Soria, [address] [facility], [place], [address]. tel:[phone] [facility] Physician s, [address], [place], [address], [place] tel:[phone] [facility] 1 insurance allowed eye exam (chief complaint) Age-related nuclear cataract, bilateralCorti gaby age-related cataract of right eyeMyopia of both eyes Oct-1 0-201 8 Lay Ehryn. [address], [place], [place], [id number], [place]. tel:[phone] Referring Provider: Meghana Soria, [address] [facility], [place], [address]. tel:[phone] OFFICE/OUTPA TIENT VISIT, [facility] Physician s, [address], [place], [address], [place] [phone] [facility] [address] No Information Oct-0 2-201 3 Misael Anaya. [facility] [facility], [address], [place], [place], [id number]. tel:[phone] Referring Provider: Meghana Soria, [address], [place], [address]. [phone] [facility], [address] [place], [place], [facility], tel:[phone] [facility] No Information 3 Rina Archer. [address] [place], [place], [id number], . tel:[phone] Referring Provider: Meghana Soria, [address] [place], [place], [facility]. tel:[phone] [facility], [address] [place], [place], [facility], tel:[phone] [facility] No Information 1 Rina Archer. [address] [place], [place], [id number], . [phone] Referring Provider: Meghana Soria, [address] [place], [place], [facility]. [phone] Family History Family Member Type Diagnosis Age At Onset Mother Problem (finding) Maternal history of marta betes mellitus Problem No family histor y of Cancer, unknown type Mother Problem (finding) HBP Mother Problem (finding) cataract Problem No family histor y of Macular degeneration Problem No family history of Glaucom a Payers Payer name Insurance type Covered green party ID Monse valdez(s) Anthem Medicare BL [id number] Social History Type Description Quantity Date Captured Comments Alcohol Use Details 1 drink weekly Caffeine Use Details Unknown Tobacco Use Status Current non-smoker Smoking Status Never smoker Non-Smoking Tobacco Use Details : No Details Available : No Details Available Sex Female Chief Complaint And Reason For Visit From encounter dated '02/10/2024 09:30'. PVD (chief complaint). Description: The 73 year old patient presents for evaluation of PVD in the right and left eyes. Pt VA decreased slightly since last OV OU. Pt states shes having to wear her glasses more often. Pt states occasionally her vision is blurry. Pt denies any pain, discomfort, doublevision, flashes of light, or floaters OU. Reason For Referral Reason For Referral No Information Plan Of Treatment Date Type Action Status Goal Tobacco cessation counseling completed Appointment Bonny Hansen History Of Present Illness Encounter Date Complaint History Of Prese nt Illness PVD The 73 year old patient presents for evaluation of PVD in the right and left eyes. Pt VA decreased slightly since last OV OU. Pt states shes having to wear her glasses more often. Pt states occasionally her vision is blurry. Pt denies any pain, discomfort, double vision, flashes of light, or floaters OU. cataracts/drusen/mec hanical entropion The 72 year old female presents for evaluation of cataracts/drusen/mechanical entropion in the right and left eyes. Pt states that her vision is good but that it gets blurry if she reads for a long time. Denies eye pain and flashes. Pt states that her floaters went away but are now back. cataract The 72 year old female presents for evaluation of cataract in the right and left eyes. Pt states that her vision has been about the same since her last OV. Pt denies having any eye pain, flashes of light, floaters, double vision, and light sensitivity. Pt complains of having occasional headaches. - refraction entropion ref by Dr. Chun The 70 year old female presents for evaluation of entropion ref by Dr. Chun in the right and left eyes. Pt states entropion in present BUL and BLL. Pt states she has to manually take the lids off of her eyes when they get stuck. Pt states occasional FBS OU. Pt denies any tearing. Pt denies any pain but states irritation OU. Pt states some itching and redness. Pt states matting in the mornings at times. Pt states she has tried eye drops with no relief. Pt states she takes Aspirin daily. Pt denies other concerns. insurance allowed annual eye exa m The 70 year old female presents for evaluation of insurance allowed annual eye exam in the right and left eyes. Pt states vision has been stable since last visit. Pt notes that she's having issues with eyelids rolling in towards the eye- more lower lids than upper. Denies eye pain, new flashes, or floaters. Urgent The 70 year old female presents for Urgent issue in the right and left eyes. Patient states that their vision got blurry since their last visit. Complains of redness, itching, burning, swollen OU, OS>OD for one week and light sensitivity. Denies flashes, floaters, pain, pressure and glare/halos from headlights.Drops:given two drops to use but doesn't remember the names of them Yearly Comprehensive Exam The 70 year old female presents for evaluation of Yearly Comprehensive Exam in the right and left eyes. Patient states that their vision has been stable since their last visit. Complains of itching, blurry vision OU, floaters, irritation. Denies flashes, pain, pressure and light sensitivity.Drops:no eye drops -Patient would like a new glasses rx if it has changed a significant amount 1 year cataract check The 69 yea r old female presents for evaluation of 1 year cataract check in the right eye and left eye. Pt feels vision is stable in both eyes since last visit. Denies eye pain, flashes, floaters. She does state some blurriness when watching tv at night without her glasses on. Pt does have trouble driving at night due to bright lights. 1 insurance allowed eye exam The 68 year old female presents for evaluation of 1 insurance allowed eye exam in the right eye and left eye. Pt state that she sometimes has trouble driving at night and during the rain due to the glare. She states sometimes sees floaters. Pt states vision stable and glasses seem to be working ok. pt denies flashes or pain. 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 Patient states that papilloma causes irritation and can sometimes bleed. New Spec Rx today; follow-up in 1 year. Observe cataracts OU. OU: Educational materials provided:Primary Diagnosis. 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
--- OUTSIDE RECORDS SUMMARY | 2025-02-02 15:15 | XMS_ITS | Continuity of Care Document ---
Author Organization [facility], PULMONARY Address [address] [facility] [address] [place] [address] Assessment Encounter Date Assessment Date Assessment LastModified by Organization Details LastModified Time 01/02/2025 01/02/2025 74-year-old female with history of moderately severe chronic obstructive pulmonary disease (COPD) presenting with follow-up for treatment evaluation and pulmonary nodule assessment. Her COPD is under control with the use of Trelegy, and she maintains respiratory stability despite moderate lung function impairment at 51%. She presents a smoking history with existing nicotine dependence, smoking up to a pack a day. Additionally, an obstructive sleep apnea diagnosis was confirmed through home testing, pending full report review. The solitary pulmonary nodule exhibits no change, warranting continued monitoring. [email or web address] Not available 01/02/2025 14:54:45 Plan of Treatment Reminders Order Date Submit Date Provider Last Modified By Organization Details Last Modified Time Details Appointments CT SCAN 2024 02:00P M ct_scan Not available Not available Not available RECHECK 2024 02:30P M HEATHER VILLEGAS MD Not available Not available Not available Lab None recorded . Referral None recorded . Procedures None recorded . Surgeries None recorded . Imaging CT, chest, w/o contrast 2024 025 [email or web address] [facility] Radiology [facility], [address] [facility], [place], [address], 01/06/2025 16:26:22 Medication Orders Trelegy Ellipta 100 mcg-62.5 mcg-25 mcg powder for inhalati on 2024 025 [employer] #[id number], [address] [address] [place], [id number], 01/02/2025 14:38:30 Patient TargetsNo targets recorded. Patient Instructions Encounter Date Encounter Id Patient Instructions Last Modified By Organization Details Last Modified Time 01/02/2025 [id number] [facility] TOBAC [facility] QUIT LINE [email or web address] Not available 01/02/2025 14:38:15 - Continue takin g Trelegy as prescribed for COPD. - Attempt to quit smoking completely or further reduce current usage. - Attend pulmonary rehabilitation if recommended. - Return for follow-up CT scan to monitor pulmonary nodule. - Follow up with Dr. Walden for the complete sleep study report. - Seek medical attention if experiencing increased shortness of breath or acute respiratory symptoms. [email or web address] Not available 01/02/2025 14:49:54 I discussed the management and monitoring plan for the patient's chronic obstructive pulmonary disease, emphasizing the continuation of Trelegy due to its symptomatic benefit. I informed the patient about the importance of smoking cessation for COPD management and future health benefits. Regular pulmonary rehabilitation was suggested to support improved breathing techniques. For the solitary pulmonary nodule, we agreed on continued biannual CT monitoring, acknowledging the current stability. Obstructive sleep apnea was confirmed, and I advised on the potential benefit of CPAP therapy once the complete sleep study report is obtained. I instructed the patient on the significance of reducing tobacco use, which impacts COPD and overall health. The risks and benefits of the discussed management strategies were conveyed, ensuring the patient s understanding of follow-up requirements and potential interventions. [email or web address] Not available 01/02/2025 14:49:55 Reason for Referral None Reported. Results Created Date Observation Date Name Description Value Unit Range Abnormal Flag Note LastModifiedBy Organization Detail LastModifiedTime 01/03/2001/02/2025 CT, chest , [facility] [address] [facility] [place] [address] Alejandrinaraúl laguerre Name: VICTORINA laguerre : 952 Juany laguerre Orderi ng Provid er: EDGARDO COBB PRADIP EXAM DATE: 2024 EXAM: CT CHEST W/O CONTRA ST CLINIC AL INFORM ATION: Nodule TECHNI QUE: Multip le axial CT images of the chest were obtain ed withou t inject ion of IV contra st. COMPAR CHTE: None. FINDIN GS: AIRWAY S AND LUNGS: Trache a, princi pal bronch i and major bronch ial branch es are patent and normal . Stable biapic al fibron odular change s. Stable pleura l-base d nodule right upper lobe latera lly, refere nce image #77 of series 202 MEDIAS TINUM: No medias tinal lympha denopa thy. Aorta, SVC, pulmon lawrence arteri es, pulmon lawrence veins and their major branch es and tribut drake are normal . No gross cardia c abnorm ality. PLEURA AND CHEST WALL: No pleura l effusi on or mass. No chest wall abnorm ality. UPPER ABDOMI NAL ORGANS : Limite d imagin g of the upper abdome n shows a stable benign liver cyst. The kidney s are only partia lly visual ized and there does appear to be dilata tion of the left upper major calyx. COMBIN ED IMPRES EMERITA: Stable pleura l-base d nodule in the right upper lobe. Sugges t follow -up repeat study 6 months to contin ue to docume nt stabil ity Interp reted By: Tenzin Linares MD Electr onical ly Signed By: Tenzin Linares MD on 025 2:10 PM [email or web address] [facility] Radiology [address], [address], 01/02/2025 14:20:37 Result Notes Documentation Provider Name and Address Organization Details Recorded Time Ct, Chest, W/o Contrast : [address] [address] Patient Name: BONNY MOYA Patient : 1950 Patient Ordering Provider: HEATHER VILLEGAS EXAM DATE: 01/02/2025 EXAM: CT CHEST W/O CONTRAST CLINICAL INFORMATION: Nodule TECHNIQUE: Multiple axial CT images of the chest were obtained without injection of IV contrast. COMPARISON: None. FINDINGS: AIRWAYS AND LUNGS: Trachea, principal bronchi and major bronchial branches are patent and normal. Stable biapical fibronodular changes. Stable pleural-based nodule right upper lobe laterally, reference image #77 of series 202 MEDIASTINUM: No mediastinal lymphadenopathy. Aorta, SVC, pulmonary arteries, pulmonary veins and their major branches and tributaries are normal. No gross cardiac abnormality. PLEURA AND CHEST WALL: No pleural effusion or mass. No chest wall abnormality. UPPER ABDOMINAL ORGANS: Limited imaging of the upper abdomen shows a stable benign liver cyst. The kidneys are only partially visualized and there does appear to be dilatation of the left upper major calyx. COMBINED IMPRESSION: Stable pleural-based nodule in the right upper lobe. Suggest follow-up repeat study 6 months to continue to document stability Interpreted By: Tenzin Linares MD HER VILLEGAS MD [address] [place] [address] [place], [address], [facility] 01/02/2025 14:20:37 Problems Name Problem SNOMED Code Status Onset Date Resolution Date Notes Provider Name and Address Organization Details Recorded Time Chronic obstructive pulmonary disease 80679801 Active 2023 HEATHER VILLEGAS MD [facility] [place], [address], [facility] 4 10:54:43 Nicotine dependence 21819915 Active 2023 HEATHER VILLEGAS MD [address] [place] [address] [place], [address], [facility] 4 10:55:12 Solitary nodule of lung 653899902 Active 2023 [place], [address], [facility] 4 14:37:01 Obstructive sleep apnea syndrome 70783151 Active 2024 [place], [address], [facility] 5 14:41:07 Severe chronic obstructive pulmonary disease 607713759 Active 2024 [place], [address], [facility] 14:43:41 Moderate chronic obstructive pulmonary disease 721299677 Active 2024 HEATHER VILLEGAS MD [address] [place], [address], [facility] 14:56:50 Problem Notes None recorded. Procedures Surgical History Date Name Laterality Status Provider Name and Address Organization Details Recorded Time 03/01/20 Airway Resistance completed Mirna Kira [facility] 03/01/2024 09:56:55 03/01/20 24 [facility] 09:57:07 03/01/20 24 Lung Volumes, Plethysmography completed [facility] 03/01/2024 09:56:57 03/01/20 24 Demonstration Aerosol/Generator/N ebulizer/Optichambe r completed [facility] 03/01/2024 09:57:09 03/01/20 24 Pulmonary Function Testing completed HEATHER VILLEGAS MD [address] [place], [address], [facility] 03/01/2024 12:20:40 03/01/20 24 Spirometry with Bronchodilator completed [facility] 03/01/2024 09:57:12 insertion of arterial stent completed [facility] 03/01/2024 09:28:57 Back Surgery completed Mirna Kira [facility] 03/01/2024 09:38:03 cholecystectomy completed Mirna Kira [facility] 03/01/2024 09:38:14 hernia repair completed Mirna Kira [facility] 03/01/2024 09:38:23 [facility] bilateral fall[facility]/01/2024 09:38:46 [facility]/01/2024 09:39:09 [facility] 03/01/2024 09:39:47 procedure on foot completed Mirna Malone [facility] 03/01/2024 09:40:07 Imaging Results None recorded. Procedure Notes None recorded. Medical Equipment None Reported. Allergies Allergen ID Allergen Name Allergen Category Reaction Reaction Severity Criticality Documentation Date Start Date Code Code System Note Provider Name and Address Organization Details Recorded Time 014414 Pepto-bis mol medicatio n Not available Not available Not available 03/01/2024 76991 RxNorm TURNS TONGU E BLACK Mirna Malone [facility] 4 09:30:59 298835 gabapenti n medicatio n seizure Not available Not available 03/01/2024 53158 RxNorm Mirna Malone [facility] 4 09:31:20 Medications Name Sig Start Date Stop [...] puff every day by inhalati on route. 2024 active Not Available Not Available Not Avai lable albuterol sulf 90 mcg/actua tion breath activated powder inhaler,s ensor Inhale 2 puffs every 4 hours by inhalati on route. 2023 active Not Available Not Available Not Avai lable Vitals Date Recorded Body height Body mass index (BMI) Body weight Heart rate Oxygen saturation Oxygen saturation in Arterial blood by Pulse oximetry Systolic And Diastolic Provider Name and Address Organization Details Last Updated DateTime 5 161.29 cm 27.2 kg/m2 97856.4 1 g 86 /min 95 % 95 % 115/80 mm[Hg] Mary Negrita [facility] 14:29:41 Social History Question Answer Notes LastModified by Organizat ion Details LastModified Time Tobacco Smoking Status Current Every Day Smoker Mirna cross [facility] 03/01/2024 09:34:01 What Is Your Level Of Caffeine Consumption? Moderate Information not available 01/02/2025 What Was The Date Of Your Most Recent Tobacco Screening? 01/02/2025 Information not available 01/02/2025 At What Age Did You Start Smoking Tobacco? 19 Information not available 03/01/2024 How Much Tobacco Do You Smoke? 1 PPD [email or web address] Information not available 03/01/2024 How Many Years Have You Smoked Tobacco? 54 [email or web address] Information not available 03/01/2024 Sex: Unknown Functional Status Question Answer Note LastModified by Organizat ion Details LastModified Time Do you use any illicit or recreational drugs? No [email or web address] Information not available 03/01/2024 Do you or have you ever used any other forms of tobacco or nicotine? No [email or web address] Information not available 03/01/2024 What is your level of alcohol consumption? None Information not available 03/01/2024 Are you currently employed? No retired Information not available 01/02/2025 Mental Status None recorded. Family History Relationship Description Onset Age of this Age Resolved Age Notes LastModified by Organization Details LastModified Time Mother Hypoglycemia [email or web address] Not avai lable 03/01/2024 09:32:24 Mother Heart disease [email or web address] Not available 2023 09:32:37 Father Family history of stroke [email or web address] Not available 2023 09:32:50 Medical History Condition Response Chronic Obstructive Pulmonary Disease Y Hospitalizations Y Arthritis Y High Cholesterol Y Hypertension Y Gynecological HistoryNo gynecological history recorded. Obstetrics History GPAL:G 0 P 0 0 0 0 Past Encounters Encounter ID Performer Location Encounter Start Date Encounter Closed Date Diagnosis/Indication Diagnosis SNOMED-CT Code Diagnosis ICD10 Code Diagnosis Note [id number] HEATHER VILLEGAS MD PULMONARY [address] [place] [address] 01/02/2025 14:22:54 01/02/2025 15:41:09 Chronic obstructive pulmonary disease 45991240 J44.9 Details as indicated above. I will renew her Trelegy prescripti on Solitary n odule of lung 821127434 R91.1 She has a 6 mm pleural-ba sed nodule in the right upper lobe this was not there previously 1. She has extensive risk factors including her age , smoking history and the location of the nodule2. Follow-up CT scan today 01/02/2025 shows stability. 3. We will follow-up with a CT of the chest without contrast in 6 months. Nicotine dependence 5629 4008 F17.200 She continues to smoke up to a pack of cigarettes a day I have strongly advised her on smoking cessation. She is not ready to quit at this time. She will continue to make efforts to cut back.LDCT scan from today 01/02/2025 shows a right upper lobe nodule measured at 6 mm.This is stable in appearance compared to June 2025.She will have a follow-up CT chest without contrast in June 2025. Obstructiv e sleep apnea syndrome 20638150 G47.33 I do not have a copy of the report of a home sleep study.She will send this to me.This was ordered by her cardiologi st1. Review full report from Dr. Walden.2 . Discuss potential CPAP therapy.3. Consider repeat sleep study if necessary. She is not sure about the validity of the results. Moderate c hronic obstructive pulmonary disease 836450822 J44.9 She has COPD. It is moderately [...] her on age-approp riate and recommende d vaccines6. I have recommende d pulmonary rehab and I gave her a patient informatio n pamphlet. She will let me know if she is interested . Health Concerns Section Related Observation LastModified by Organization Tim trejo LastModified Time None Recorded Concern Status LastModified by Organization Details LastModified Time None Recorded Payers Encounter Date Sequence Insurance Name Policy Number Policy Saavedra Covered Member ID Saavedra Member ID Guarantor Name 01/02/2025 1 [place]ARE[place] Bonny Moya [id number] Bonny Wiggins White 01/02/2025 2 [employer] (MEDICARE SUPPLEMENT) Bonny Moya [id number] Bonny Wiggins White Notes Date Note Type Note Provider Name and Address Organization Details Recorded Time 01/02/2025 text/html The patient is a 74-year-old female presenting with a history of chronic obstructive pulmonary disease (COPD) and a solitary pulmonary nodule. The patient has been experiencing COPD with an observed prior lung function of 51%. She is currently undergoing treatment with Trelegy, which she reports is effective. Her history of nicotine dependence is notable, with a current smoking reduction to approximately half a pack per day. A solitary pulmonary nodule was documented in the right lung with previous scans showing no notable changes in the nodule s size or shape, which will be monitored regularly. Additionally, the patient has been diagnosed with obstructive sleep apnea, identified through a home sleep study, although the full report is not available. The setup of the first test was challenging, but subsequent tests confirmed the diagnosis. The patient's mobility is somewhat impacted by knee discomfort, yet she participates in regular walking which is beneficial for her conditions. HEATHER VILLEGAS MD [address] [place] [address], [address], [facility] 01/02/2025 14:58:13 OBGyn Episode No OBEpisode recorded.
[2025-02-02 15:43] LABS: Anion Gap 13.2 mEq/L (5-15); Blood Urea Nitrogen 16 mg/dl (7-17); Calcium 9.7 mg/dl (8.4-10.2); Carbon Dioxide 33 mmol/L (22.0-30.0); Chloride 93 mmol/L (98-107); Creatinine,Serum 0.80 mg/dl (0.52-1.04); Estimated Glomerular Filt Rate 71 ml/min (>60); GFR (African American) 85 ML/MIN (>60); Glucose 86 mg/dl (74-100); Potassium 3.2 mmoL/L (3.5-5.1); Sodium 136 mmol/L (136-145)
== END 2025-02-02 23:59 | disposition home or self-care (01) ==
LOC: LAB.DROPOF 14:46
PROVIDERS: PCP Family Medicine; Visit Provider Family Medicine
DX: E87.6 Hypokalemia (principal)
CPT/HCPCS: 80048

== ENCOUNTER 2025-02-10 10:40 | Outpatient (CLI) | payer MEDICARE, SELFPAY ==
--- OUTSIDE RECORDS SUMMARY | 2025-02-10 10:43 | XMS_ITS | Continuity of Care Document ---
Author Organization [place] [facility], PULMONARY Address [address] [place] [address] Assessment Encounter Date Assessment Date Assessment LastModified [...] Imaging CT, chest, w/o contrast 2024 025 [id number] [facility] Radiology [facility], [address] [facility], [place], [address], 01/06/2025 16:26:22 Medication Orders Trelegy Ellipta 100 mcg-62.5 mcg-25 mcg powder for inhalati on 2024 025 [id number], [address] [address] [place], [id number], 01/02/2025 14:38:30 Patient TargetsNo targets recorded. Patient Instructions Encounter Date Encounter Id Patient Instructions Last Modified By Organization Details Last Modified Time 01/02/2025 [id number] [facility] TOBAC CO QUIT LINE [email or web address] Not available [...] 01/03/2001/02/2025 CT, [facility] , [facility] [address] [place] [address] Alejandrinaraúl laguerre Name: VICTORINA laguerre : 952 Juany laguerre Orderi ng Provid er: EDGARDO COBB PRADIP EXAM DATE: 2024 EXAM: CT CHEST W/O CONTRA ST [facility]IN[facility] AL INFORM ATION: Nodule TECHNI QUE: Multip le axial CT images of the chest were obtain ed withou t inject ion of IV contra st. COMPAR CHET: None. FINDIN GS: AIRWAY S AND LUNGS: [...] Linares MD on 025 2:10 PM [email or web address] [facility] Radiology [address], [address], 01/02/2025 14:20:37 Result Notes Documentation Provider Name and Address Organization Details Recorded Time Ct, Chest, W/o Contrast : [address] [address] Patient Name: BONNY MOYA Patient : 1950 [...] By: Tenzin Linares MD HER VILLEGAS MD [address] [place] [address] [place], [address], [facility] 01/02/2025 14:20:37 Problems Name Problem SNOMED Code Status Onset Date Resolution Date Notes Provider Name and Address Organization Details Recorded Time Chronic obstructive pulmonary disease 87511190 Active 2023 HEATHER VILLEGAS MD [facility] [place], [address], [facility] 4 10:54:43 Nicotine dependence 48318051 Active 2023 HEATHER VILLEGAS MD [address] [place] [address] [place], [address], [facility] 4 10:55:12 Solitary nodule of lung 819406305 Active 2023 MD Jaye [place], [address], [facility] 4 14:37:01 Obstructive sleep apnea syndrome 50656431 Active 2024 [place], [address], [facility] 5 14:41:07 Severe chronic obstructive pulmonary disease 038294726 Active 2024 MD Jaye [place], [address], [facility] 14:43:41 Moderate chronic obstructive pulmonary disease 752153264 Active 2024 HEATHER VILLEGAS MD [address] [place], [address], [facility] 14:56:50 Problem Notes None recorded. Procedures Surgical History Date Name Laterality Status Provider Name and Address Organization Details Recorded Time 03/01/20 Airway Resistance completed Mirna Kira [facility] 03/01/2024 09:56:55 03/01/20 24 [facility] 09:57:07 03/01/20 24 Lung Volumes, Plethysmography completed [facility] 03/01/2024 09:56:57 03/01/20 24 Demonstration Aerosol/Generator/N ebulizer/Optichambe r completed [facility] 03/01/2024 09:57:09 03/01/20 24 Pulmonary Function Testing completed HEATHER VILLEGAS MD [address] [place], [address], [facility] 03/01/2024 12:20:40 03/01/20 24 Spirometry with Bronchodilator completed [facility] 03/01/2024 09:57:12 insertion of arterial stent completed [facility] 03/01/2024 09:28:57 Back Surgery completed Mirna Kira [facility] 03/01/2024 09:38:03 cholecystectomy completed Mirna Kira [facility] 03/01/2024 09:38:14 hernia repair completed Mirna Kira [facility] 03/01/2024 09:38:23 [facility] of bilateral fallopian tubes [facility]/01/2024 09:38:46 [facility] 03/01/2024 09:39:09 [facility]/01/2024 09:39:47 procedure on foot completed Mirna Malone [facility] 03/01/2024 09:40:07 Imaging Results None recorded. Procedure Notes None recorded. Medical Equipment None Reported. Allergies Allergen ID Allergen Name Allergen Category Reaction Reaction Severity Criticality Documentation Date Start Date Code Code System Note Provider Name and Address Organization Details Recorded Time 193638 Pepto-bis mol medicatio n Not available Not available Not available 03/01/2024 14657 RxNorm TURNS TONGU E BLACK Mirna Malone [facility] 4 09:30:59 [id number] gabapenti n medicatio n seizure Not available Not available 03/01/2024 97237 RxNorm Mirna Malone [facility] 4 09:31:20 Medications Name [...] Available Not Available No t Available escitalop bredna 5 mg tablet Take 1 tablet every [...] Updated DateTime 5 161.29 cm 27.2 kg/m2 42036.4 1 g 86 /min 95 % 95 % 115/80 mm[Hg] Mary Negrita [facility] 14:29:41 Social History Question Answer Notes LastModified by Organizat ion Details LastModified Time Tobacco Smoking Status Current Every Day Smoker Mirna cross [facility] 03/01/2024 09:34:01 What Is Your Level Of Caffeine Consumption? Moderate Information not available 01/02/2025 What Was The Date Of Your Most Recent Tobacco Screening? 01/02/2025 Information not available 01/02/2025 At What Age Did You Start Smoking Tobacco? 19 Information not available 03/01/2024 How Much Tobacco Do You Smoke? 1 PPD [email or web address] Information not available 03/01/2024 How Many Years Have You Smoked Tobacco? 54 [email or web address] Information not available 03/01/2024 Sex: Unknown Functional Status Question Answer Note LastModified by Organizat ion Details LastModified Time Do you use any illicit or recreational drugs? No Information not available 03/01/2024 Do you or have you ever used any other forms of tobacco or nicotine? No [email or web address] Information not available 03/01/2024 What is your level of alcohol consumption? None Information not available 03/01/2024 Are you currently employed? No retired Information not available 01/02/2025 Mental Status None recorded. Family History Relationship Description Onset Age of this Age Resolved Age Notes LastModified by Organization Details LastModified Time Mother Hypoglycemia [email or web address] Not avai lable 03/01/2024 09:32:24 Mother Heart disease [email or web address] Not available 2023 09:32:37 Father Family history of stroke [email or web address] Not available 2023 09:32:50 Medical History Condition Response Hospitalizations Y Arthritis Y Chronic Obstructive Pulmonary Disease Y Hypertension Y High Cholesterol Y Gynecological HistoryNo gynecological history recorded. Obstetrics History GPAL:G 0 P 0 0 0 0 Past Encounters Encounter ID Performer Location Encounter Start Date Encounter Closed Date Diagnosis/Indication Diagnosis SNOMED-CT Code Diagnosis ICD10 Code Diagnosis Note [id number] HEATHER VILLEGAS MD PULMONARY [address] [place] [address] 01/02/2025 14:22:54 01/02/2025 15:41:09 Chronic obstructive pulmonary disease 25329120 J44.9 Details as indicated above. I will renew her Trelegy prescripti on Solitary n odule of lung 195075992 R91.1 She has a 6 mm pleural-ba [...] June 2025. Obstructiv e sleep apnea syndrome 67417562 G47.33 I do not have a copy of the report of a home sleep study.She will send this to me.This was ordered by her cardiologi st1. Review full report from Dr. Walden.2 . Discuss potential CPAP therapy.3. Consider repeat sleep study if necessary. She is not sure about the validity of the results. Moderate c hronic obstructive pulmonary disease 833543023 J44.9 She has COPD. It is moderately [...] Name 01/02/2025 1 [place] Bonny Moya [id number] Bonny Wiggins White 01/02/2025 2 AARP (MEDICARE SUPPLEMENT) Bonny Moya [id number] Bonny Wiggins White Notes Date Note Type Note Provider Name and Address Organization Details Recorded Time 01/02/2025 text/html ROS as noted in the HPI The patient is a 74-year-old female presenting [...] beneficial for her conditions. HEATHER VILLEGAS MD [address] [place] [address], [phone], [facility] 01/02/2025 14:58:13 OBGyn Episode No OBEpisode recorded.
--- NOTE | 2025-02-10 11:00 | MM_ITS ---
PROCEDURE INFORMATION: Exam: MG Bilateral Screening 3D Mammography Exam date and time: 02/10/2025 10:52 AM Age: 74 years old Clinical indication: Screening mammogram TECHNIQUE: Imaging protocol: Bilateral Screening tomosynthesis and 2D mammography including computer-aided detection (CAD) when performed. COMPARISON: 1. MG MM DIG SCREENING MAMM BI W/CAD 12/28/2019 10:59 AM 2. MG DMSB DIG MAMM-SCREEN SHERRY W/CAD 04/16/2017 10:54 AM 3. MG DMSB DIG MAMM-SCREEN SHERRY 04/14/2016 10:20 AM 4. MG DMSB DIG MAMM-SCREEN SHERRY 07/06/2014 10:10 AM FINDINGS: MAMMOGRAPHY: Breast composition: There are scattered areas of fibroglandular density. Mass: None. Architectural distortion: No new or suspicious architectural distortion. Calcifications: No new or suspicious calcifications are present Asymmetric density: No new or suspicious asymmetric density is present Skin thickening: None. Axillary adenopathy: None. IMPRESSION: No mammographic evidence of malignancy. Recommend annual screening mammography unless otherwise clinically indicated. ASSESSMENT: BI-RADS category 1: Negative.
== END 2025-02-10 23:59 | disposition home or self-care (01) ==
LOC: RAD 10:41
PROVIDERS: PCP Family Medicine; Visit Provider Family Medicine
DX: Z12.31 Encounter for screening mammogram for malignant neoplasm of breast (principal); R92.323 Mammographic fibroglandular density, bilateral breasts
CPT/HCPCS: 77063; 77067

== ENCOUNTER 2025-02-20 11:00 | Outpatient (CLI) | payer MEDICARE, SELFPAY | END 2025-02-20 23:59 | disposition home or self-care (01) | LOC: LAB.DROPOF 02-21 14:51 | PROVIDERS: PCP Student in an Organized Health Care Education/Training Program; Visit Provider Student in an Organized Health Care Education/Training Program | DX: N39.0 Urinary tract infection, site not specified (principal) | CPT/HCPCS: 87086; 87088; 87186 ==

== ENCOUNTER 2025-03-01 11:51 | Outpatient (CLI) | payer MEDICARE, SELFPAY | END 2025-03-01 23:59 | disposition home or self-care (01) | LOC: LAB.DROPOF 03-03 11:52 | PROVIDERS: PCP Nurse Practitioner Family; Visit Provider Nurse Practitioner Family | DX: N39.0 Urinary tract infection, site not specified (principal) | CPT/HCPCS: 87086; 87088; 87186 ==

== ENCOUNTER 2025-03-06 11:41 | Outpatient (CLI) | payer MEDICARE, SELFPAY ==
[2025-03-06 16:54] LABS: Chloride 102 mmol/L (98-107); Potassium 5.1 mmoL/L (3.5-5.1)
[2025-03-06 16:57] LABS: Blood Urea Nitrogen 17 mg/dl (7-17); Calcium 9.4 mg/dl (8.4-10.2); Carbon Dioxide 26 mmol/L (22.0-30.0); Creatinine,Serum 0.80 mg/dl (0.52-1.04); Estimated Glomerular Filt Rate 71 ml/min (>60); GFR (African American) 85 ML/MIN (>60); Glucose 87 mg/dl (74-100)
[2025-03-06 17:11] LABS: Anion Gap 12.1 mEq/L (5-15); Sodium 135 mmol/L (136-145)
== END 2025-03-06 23:59 | disposition home or self-care (01) ==
LOC: LAB.DROPOF 03-08 09:34
PROVIDERS: PCP Family Medicine; Visit Provider Family Medicine
DX: E87.6 Hypokalemia (principal); I10 Essential (primary) hypertension
CPT/HCPCS: 80048

== ENCOUNTER 2025-03-23 09:50 | Outpatient (CLI) | payer MEDICARE, SELFPAY ==
[2025-03-23 10:38] LABS: Chloride 107 mmol/L (98-107)
[2025-03-23 10:39] LABS: Potassium 4.8 mmoL/L (3.5-5.1); Sodium 136 mmol/L (136-145)
[2025-03-23 10:42] LABS: Anion Gap 10.8 mEq/L (5-15); Blood Urea Nitrogen 28 mg/dl (7-17); Calcium 9.8 mg/dl (8.4-10.2); Carbon Dioxide 23 mmol/L (22.0-30.0); Creatinine,Serum 0.90 mg/dl (0.52-1.04); Estimated Glomerular Filt Rate 61 ml/min (>60); GFR (African American) 74 ML/MIN (>60); Glucose 107 mg/dl (74-100)
== END 2025-03-23 23:59 | disposition home or self-care (01) ==
LOC: LAB 09:51
PROVIDERS: PCP Family Medicine; Visit Provider Family Medicine
DX: E87.5 Hyperkalemia (principal)
CPT/HCPCS: 36415; 80048

== ENCOUNTER 2025-03-25 10:40 | Outpatient (CLI) | payer MEDICARE, SELFPAY | END 2025-03-25 23:59 | LOC: LAB.DROPOF 03-27 10:45 | PROVIDERS: PCP Nurse Practitioner Family; Visit Provider Nurse Practitioner Family | DX: N39.0 Urinary tract infection, site not specified (principal) | CPT/HCPCS: 87086; 87088 ==

== ENCOUNTER 2025-03-30 10:00 | Outpatient (CLI) | payer MEDICARE, SELFPAY | END 2025-03-30 23:59 | disposition home or self-care (01) | LOC: LAB.DROPOF 04-10 11:10 | PROVIDERS: PCP Family Medicine; Visit Provider Family Medicine | DX: N39.0 Urinary tract infection, site not specified (principal) | CPT/HCPCS: 87086 ==

== ENCOUNTER 2025-04-13 09:43 | Outpatient (CLI) | payer MEDICARE, SELFPAY ==
--- NOTE | 2025-04-13 10:00 | US_ITS ---
FINAL REPORT TECHNIQUE: Limited sonographic images of the urinary bladder were obtained. CLINICAL HISTORY: UTI -- OVERACTIVE BLADDER FINDINGS: There is incomplete distention of initial images. Bladder volume is 29 cc. No gross filling defect is identified. IMPRESSION: Incomplete distention. Patient reported unable to distend bladder. Reviewed, Interpreted and Dictated by Xiao Blas MD Transcribed by Soraya Tapia Authenticated and [facility]
--- NOTE | 2025-04-13 10:30 | US_ITS ---
FINAL REPORT TECHNIQUE: Sonographic images of the kidneys and bladder were obtained in the longitudinal and transverse planes. CLINICAL HISTORY: uti -- overactive bladder FINDINGS: The right kidney measures 8.8 cm in pirt-bd-ykoz length. The left kidney measures 11.6 cm in byqh-lq-carx length. There is no mass, or stone. There is cortical thinning bilaterally with normal cortical echogenicity. There is mild left hydronephrosis. IMPRESSION: Mild cortical thinning bilaterally. Mild left hydronephrosis. Reviewed, Interpreted and Dictated by Xiao Blas MD Transcribed by Soraya Tapia Authenticated and . [facility]
== END 2025-04-13 23:59 | disposition home or self-care (01) ==
LOC: RAD 09:43
PROVIDERS: PCP Family Medicine; Visit Provider Urology
DX: N13.30 Unspecified hydronephrosis (principal); N28.89 Other specified disorders of kidney and ureter; N32.89 Other specified disorders of bladder; N39.0 Urinary tract infection, site not specified; N32.81 Overactive bladder
CPT/HCPCS: 76770; 76857

== ENCOUNTER 2025-05-05 09:21 | Outpatient (CLI) | payer MEDICARE, SELFPAY ==
--- OUTSIDE RECORDS SUMMARY | 2025-05-05 09:31 | XMS_ITS | Data Portability ---
Author Organization [place] [facility] [place] [facility] Alejo TYLER CLOSED Address [address] [place] [address] Assessment Encounter Date Assessment Date Assessment LastModified [...] oximetr y with exercis e (PROC) 2023 024 [facility] Pulmonary, [address] [facility], [facility] [address], [place], [address], 03/01/2024 12:52:31 Surgeries None recorde d. Imaging CT, chest, w/o contras t 2024 025 [facility] Radiology [facility], [address] [place], [address], 01/06/2025 16:26:22 CT, chest, w/o contras t 2023 024 [facility] Radiology [facility], [address] [place], [address], 01/02/2025 14:15:49 LDCT, chest, for lung cancer screeni ng - The provide r's office will call and schedul e test with Radiolo gy Dept and then the patient will be contact ed with details . 2023 024 [facility] Radiology [facility], [address] [place] [address], [address], 06/28/2024 13:40:29 Medication Orders Trelegy Ellipta 100 mcg-62. 5 mcg-25 mcg powder for inhalat ion 2024 025 [facility]57783, [address], [id number], 01/02/2025 14:38:30 Trelegy Ellipta 100 mcg-62. 5 mcg-25 mcg powder for inhalat ion 2023 024 [facility], [address], [id number], 06/28/2024 14:43:48 albuter ol sulf 90 mcg/act uation breath activat ed powder inhaler ,sensor 2023 024 [facility]1959, [address], [id number], 06/28/2024 14:43:48 Trelegy Ellipta 100 mcg-62. 5 mcg-25 mcg powder for inhalat ion 2023 024 [facility] #20852, [address] [place], [id number], 03/28/2024 14:31:11 Ventoli n HFA 90 mcg/act uation aerosol inhaler 2023 024 [place] #18344, [address] [place], [id number], 03/28/2024 14:31:34 albuter ol sulfate HFA 90 mcg/act uation aerosol inhaler 2023 024 [facility] #73775, [address] [place], [id number], 03/01/2024 11:03:21 Trelegy Ellipta 100 mcg-62. 5 mcg-25 mcg powder for inhalat ion 2023 024 edi [facility] #86585, [address] [place], [id number], 03/01/2024 11:14:03 Patient TargetsNo targets recorded. Patient Instructions Encounter Date Encounter Id Patient Instructions Last Modified By Organization Details Last Modified Time 03/01/2024 [id number] [facility]IT [facility] amedaiyese Not available 03/01/2024 11:03:21 Lung Cancer Scre en Decision Aid amedaiyese Not available 03/01/2024 11:03:21 lung cancer screening eligibility assessment* amedaiyese Not available 03/01/2024 11:03:24 She will have an LDCT scan as soon as possible she will return to see me for review. We will review her response to the Trelegy inhaler . [email or web address] Not available 03/01/2024 12:26:38 03/28/2024 [id number] [facility] amedaiyese Not available 03/28/2024 15:36:17 She is doing fairly well with significant improvement in her symptoms I have given her a discount card for Trelegy I have again strongly advised on smoking cessation amedaiyese Not available 03/28/2024 15:43:56 06/28/2024 [id number] I have discussed the new finding of a pulmonary nodule with her she will have a follow-up in 6 months. I have strongly encouraged her on smoking cessation I have reviewed correct inhaler technique with her again. [email or web address] Not available 06/28/2024 14:46:43 01/02/2025 [id number] [facility] amedaiyese Not available [...] LastModifiedTime 03/01/20 24 03/01/2024 lung cance r irenae shanice agarwal bilit y dean smjess * Age 50-80 YES Not Available [facility] Pulmonary [address] [address], [place], [address], 03/01/2024 10:59:33 03/01/20 24 03/01/2024 lung cance r scree shanice eligi bilit y asses sment * Age 50-77 Traditional Medicare YES Not Available [facility] Pulmonary [address] [facility] [address], [place], [address], 03/01/2024 10:59:33 03/01/20 24 03/01/2024 lung cance r scree shanice eligi bilit y asses sment * Either current smoker or has quit in last 15 years YES Not Available [facility] Pulmonary [address] [facility] [address], [place], [address], 03/01/2024 10:59:33 03/01/20 24 03/01/2024 lung cance r scree shanice eligi bilit y asses sment * Average of one pack a day for 20 years (20 pack years) YES Not Available [facility] Pulmonary [address] [facility] [address], [place], [address], 03/01/2024 10:59:33 03/01/20 24 03/01/2024 lung cance r scree shanice eligi bilit y asses sment * Displays signs or symptoms of lung cancer NO Not Available [facility] Pulmonary [address] [address], [place], [address], 03/01/2024 10:59:33 03/01/20 24 03/01/2024 lung cance r scree shanice eligi bilit y asses sment * Shared decision making with patient, Risks and benefits of CT Lung screen discussed YES Not Available [facility] Pulmonary [address] [facility] [address], [place], [address], 03/01/2024 10:59:33 03/01/20 24 03/01/2024 lung cance r scree shanice eligi bilit y asses sment * Smoking cessation counseling provided YES Not Available [facility] Pulmonary [address] [facility] [address], [place], [address], 03/01/2024 10:59:33 03/01/20 24 03/01/2024 lung cance r scree shanice eligi bilit y asses sment * Order provided for LDCT YES Not Available [facility] Pulmonary [address] [facility] [address], [place], [address], 03/01/2024 10:59:33 03/01/20 24 03/01/2024 XR, chest , 2 view [facility] [address] [facility], [facility] [address] [place] [address] Patien t Name: VICTORINA Harrington t : 954 Patien t Orderi ng Provid er: [facility] [...] Linares MD on 024 10:36 AM amedaiyese [facility] Radiology Pulmonary [address] [facility], [place], [address], 03/01/2024 13:09:39 03/08/20 24 01/05/2024 CT, chest , w/o contr ast No observ ation record ed. [facility] [address], [place], [address], 03/08/2024 15:54:30 06/28/20 24 06/28/2024 LDCT, chest , for lung cance r scree shanice [place] [facility] [address] [place] [address] Patien t Name: VICTORINA Harrington t : 954 Patien t Orderi ng Provid er: [facility] EXAM DATE: 2023 EXAM: CT CHEST LUNG NODULE SCREEN ING CLINIC AL INFORM ATION: Lung cancer screen ing. Histor y of smokin g for 54 pack years. Patien t is a curren t smoker . TECHNI [...] the left lobe of the liver FOR PROGRAM MGR AL STATIS TICAL PURPOS E ONLY: Exam Type: Screen ing. Change : N/A. Lung-R ADS Catego ry: Lung-R ADS catego ry 3 Lung-R ADS Modifi er: None Recall Interv al: 6 months FU. Recomm ended Exam at Recall : CT Chest Lung Nodule Screen ing Interp reted By: Tenzin Linares MD Electr onical ly Signed By: Tenzin Linares MD on 2023 1:35 PM amedaiyese [facility] Radiology [facility] [address] [place], [address], 06/28/2024 14:30:31 01/03/20 25 01/02/2025 CT, chest , w/o contr [facility] [address] [place] [place] [address] Patien t Name: VICTORINA MOYA Patien t : 954 Patien t Orderi [facility] er: EDGARDO MELISSA [facility] PR[facility]IP EXAM DATE: 2024 EXAM: CT CHEST [...] MD on 025 2:10 PM amedaiyese [facility] Radiology [facility] [address] [place], [address], 01/02/2025 14:20:37 Result Notes Documentation Provider Name and Address Organization Details Recorded Time Xr, Chest, 2 View : [facility] [address] [facility], [address] [place] [address] Patient Name: BONNY MOYA Patient : 1950 Patient Ordering Provider: HEATHER VILLEGAS EXAM DATE: 03/01/2024 EXAM: XR CHEST PA/LAT CLINICAL INFORMATION: Cough. IMAGES PROVIDED: PA and lateral views of the chest. COMPARISON: None. FINDINGS: Heart size is within normal limits. Lung castillo are clear. IMPRESSION: No acute cardiopulmonary changes. Interpreted By: Tenzin Linares MD HER VILLEGAS MD [address] [place] [address], [address], [facility] 03/01/2024 13:09:39 Ldct, Chest, For Lung Cancer Screening : [place] [address] Patient Name: BONNY MOYA Patient : 1950 Patient Ordering Provider: HEATHER VILLEGAS EXAM DATE: 06/28/2024 EXAM: CT CHEST LUNG NODULE SCREENING CLINICAL INFORMATION: Lung cancer screening. History of smoking for 54 pack years. Patient is a current smoker. TECHNIQUE: Multiple axial CT images of the chest were obtained without injection of IV contrast using the low-dose lung cancer screening protocol. COMPARISON: None. NODULE SEARCH: 1. Pleural-based 6 mm nodule in the right upper lobe, reference image #87 of series 201 OTHER FINDINGS: AIRWAYS AND LUNGS: Trachea, principal bronchi and major bronchial branches are patent and normal. Biapical fibronodular changes, symmetric side to side MEDIASTINUM: Avni calcifications are present compatible with old granulomatous disease sequela. Limited evaluation due to absence of IV contrast. Aorta, SVC, pulmonary arteries, pulmonary veins and their major branches and tributaries are normal in caliber. Cardiac size is normal. PLEURA AND CHEST WALL: No pleural effusion or mass. No chest wall abnormality. UPPER ABDOMINAL ORGANS: Limited imaging of the upper abdomen shows a sizable stone in the left renal pelvis with mild dilatation of the central collecting structures. This is incompletely evaluated on the study of the chest. This stone measures 1 cm. Benign-appearing cyst in left lobe the liver measuring 3 cm. IMPRESSION: 1. Biapical fibronodular change of pleural-based nodule in the right upper lobe. Recommend follow-up repeat study in 6 months 2. Minimally obstructive large stone in the left renal pelvis 3. Benign cyst involving the left lobe of the liver FOR INTERNAL STATISTICAL PURPOSE ONLY: Exam Type: Screening. Change: N/A. Lung-RADS Category: Lung-RADS category 3 Lung-RADS Modifier: None Recall Interval: 6 months FU. Recommended Exam at Recall: CT Chest Lung Nodule Screening Interpreted By: Tenzin Linares MD HER VILLEGAS MD [address] [place] [id number] [place] [address] 06/28/2024 14:30:31 Ct, Chest, W/o Contrast : [place] [address] Patient Name: BONNY MOYA Patient : 1950 [...] continue to document stability Interpreted By: Tenzin iLnares MD HER VILLEGAS MD [address] [place] [address], [address], [facility] 01/02/2025 14:20:37 Problems Name Problem SNOMED Code Status Onset Date Resolution Date Notes Provider Name and Address Organization Details Recorded Time Chronic obstructive pulmonary disease 33688775 Active 2023 HEATHER VILLEGAS MD [address] [place] [address], [address], [facility] 4 10:54:43 Nicotine dependence 32392896 Active 2023 HEATHER VILLEGAS MD [address] [place] [address], [address], [facility] 4 10:55:12 Solitary nodule of lung 670450055 Active 2023 HEATHER VILLEGAS MD [address] [place] [address], [address], [facility] 4 14:37:01 Obstructive sleep apnea syndrome 59816727 Active 2024 HEATHER VILLEGAS MD [address] [place] [address], [address], [facility] 5 14:41:07 Severe chronic obstructive pulmonary disease 095432979 Active 2024 HEATHER VILLEGAS MD [address] [place] [address], [address], [facility] 5 14:43:41 Moderate chronic obstructive pulmonary disease 341684889 Active 2024 HEATHER VILLEGAS MD [address] [place] [address], [address], [facility] 5 14:56:50 Problem Notes None recorded. Procedures Surgical History Date Name Laterality Status Provider Name and Address Organization Details Recorded Time 03/01/20 24 Airway Resistance completed [facility] 03/01/2024 09:56:55 03/01/20 24 Diffusion Capacity completed [facility] 03/01/2024 09:57:07 03/01/20 24 Lung Volumes, Plethysmography completed [facility] 03/01/2024 09:56:57 03/01/20 24 Demonstration Aerosol/Generator/N ebulizer/Optichambe r completed [facility] 03/01/2024 09:57:09 03/01/20 24 Pulmonary Function Testing completed HEATHER VILLEGAS MD [address] [place] [address], [address] 03/01/2024 12:20:40 03/01/20 Spirometry with Bronchodilator completed [facility] 03/01/2024 09:57:12 insertion of arterial stent completed [facility] 03/01/2024 09:28:57 Back Surgery completed [facility] 03/01/2024 09:38:03 cholecystectomy completed [facility] 03/01/2024 09:38:14 hernia repair completed [facility] 03/01/2024 09:38:23 ligation of bilateral fallopian tubes completed [facility] 03/01/2024 09:38:46 appendectomy completed [facility] 03/01/2024 09:39:09 hysterectomy completed [facility] 03/01/2024 09:39:47 procedure on foot completed [facility] 03/01/2024 09:40:07 Imaging Results None recorded. Procedure Notes None recorded. Medical Equipment None Reported. Allergies Allergen ID Allergen Name Allergen Category Reaction Reaction Severity Criticality Documentation Date Start Date Code Code System Note Provider Name and Address Organization Details Recorded Time 400292 Pepto-bis mol medicatio n Not available Not available Not available 03/01/2024 05409 RxNorm BRYANT Malone [facility] 4 09:30:59 916735 gabapenti n medicatio n seizure Not available Not available 03/01/2024 48991 RxNorm Mirna Malone [facility] 4 09:31:20 Medications Name Sig Start Date [...] Updated DateTime 5 161.29 cm 27.2 kg/m2 45538.4 1 g 86 /min 95 % 95 % 115/80 mm[Hg] Mary Negrita [facility] 5 14:29:41 Date Recorded Body weight Body mass index (BMI) Body height Oxygen saturation Oxygen saturation in Arterial blood by Pulse oximetry Heart rate Systolic And Diastolic Provider Name and Address Organization Details Last Updated DateTime 4 52333.9 3 g 24.4 kg/m2 161.29 cm 93 % 93 % 91 /min 118/74 mm[Hg] Mirna Malone [facility] 4 09:44:29 Date Recorded Body height Body mass index (BMI) Body weight Heart rate Oxygen saturation Oxygen saturation in Arterial blood by Pulse oximetry Systolic And Diastolic Provider Name and Address Organization Details Last Updated DateTime 4 161.29 cm 25.3 kg/m2 34423.8 9 g 87 /min 96 % 96 % 122/60 mm[Hg] Renate Hernandez [facility] 4 14:17:30 Date Recorded Body height Body mass index (BMI) Body weight Oxygen saturation Oxygen saturation in Arterial blood by Pulse oximetry Heart rate Systolic And Diastolic Provider Name and Address Organization Details Last Updated DateTime 4 161.29 cm 26.9 kg/m2 55347.2 2 g 96 % 96 % 85 /min 125/79 mm[Hg] Lydia Sanchez [facility] 4 14:30:06 Social History Question Answer Notes LastModified by Sina Details LastModified Time Tobacco Smoking Status Current Every Day Smoker Mirna Malone [facility] 03/01/2024 09:34:01 What Is Your Level Of Caffeine Consumption? Moderate Information not available 01/02/2025 What Was The Date Of Your Most Recent Tobacco Screening? 01/02/2025 Information not available 01/02/2025 At What Age Did You Start Smoking Tobacco? 19 [email or web address] Information not available 03/01/2024 How Much Tobacco Do You Smoke? 1 PPD [email or web address] Information not available 03/01/2024 How Many Years Have You Smoked Tobacco? 54 [email or web address] Information not available 03/01/2024 Sex: Unknown Functional Status Question Answer Note LastModified by Sina Details LastModified Time Do you use any illicit or recreational drugs? No [email or web address] Information not available 03/01/2024 Do you or have you ever used any other forms of tobacco or nicotine? No [email or web address] Information not available 03/01/2024 What is your level of alcohol consumption? None [email or web address] Information not available 03/01/2024 Are you currently employed? No retired Information not available 01/02/2025 Mental Status None recorded. Family History Relationship Description Onset Age of this Age Resolved Age Notes LastModified by Organization Details LastModified Time Mother Hypoglycemia [email or web address] Not avai lable 03/01/2024 09:32:24 Mother Heart disease [email or web address] Not available 2023 09:32:37 Father Family history of stroke [email or web address] Not available 2023 09:32:50 Medical History Condition Response Arthritis Y Hospitalizations Y High Cholesterol Y Chronic Obstructive Pulmonary Disease Y Hypertension Y Gynecological HistoryNo gynecological history recorded. Obstetrics History GPAL:G 0 P 0 0 0 0 Past Encounters Encounter ID Performer Location Encounter Start Date Encounter Closed Date Diagnosis/Indication Diagnosis SNOMED-CT Code Diagnosis ICD10 Code Diagnosis IMO Codes Diagnosis Note [id number] HEATHER VILLEGAS MD PULMONARY [address] [facility], [address] [place] [address] 03/01/2024 09:19:59 03/01/2024 14:27:34 Chronic obstructive pulmonary disease 93882425 J44.9 She has COPD. It is moderately [...] 2. She meets criteria for LDCT scan. [id number] HEATHER VILLEGAS MD PULMONARY [address] [facility], [address] [place] [address] 03/28/2024 14:05:10 03/28/2024 16:23:32 Chronic obstructive pulmonary disease 05478025 J44.9 She has COPD. It is moderately [...] a follow-up LDCT scan in November 2024. [id number] HEATHER VILLEGAS MD PULMONARY [address] [facility] [place] [id number] 06/28/2024 13:48:27 06/28/2024 15:23:27 Solitary nodule of lung 487509291 R91.1 She has a new 6 mm pleural-ba sed nodule in the right upper lobe this was not there previously 1. She has extensive risk factors including her age , smoking history and the location of the nodule2. We will plan for a follow-up CT scan in 6 months. Chronic ob structive pulmonary disease 36276970 J44.9 She has COPD. It is moderately [...] CT chest without contrast in November 2024. [id number] HEATHER VILLEGAS MD PULMONARY [address] [facility] [place] [id number] 01/02/2025 14:22:54 01/02/2025 15:41:09 Chronic obstructive pulmonary disease 15629537 J44.9 Details as indicated above. I will renew her Trelegy prescripti on Solitary n odule of lung 572407108 R91.1 She has a 6 mm pleural-ba [...] June 2025. Obstructiv e sleep apnea syndrome 08608063 G47.33 [id number] I do not have a copy of the report of a home sleep study.She will send this to me.This was ordered by her cardiologi st1. Review full report from Dr. Walden.2 . Discuss potential CPAP therapy.3. Consider repeat sleep study if necessary. She is not sure about the validity of the results. Moderate c hronic obstructive pulmonary disease 817711237 J44.9 [id number] She has COPD. It is moderately severe. [...] Recorded Advance Directives Directive None Recorded Payers Insurance Date Sequence Insurance Name Policy Number Policy Saavedra Covered Member ID Saavedra Member ID Guarantor Name 12/30/2024 1 [place] Bonny Moya [id number] Bonny Moya 01/02/2025 2 [employer] (MEDICARE SUPPLEMENT) Bonny Moya [id number] Bonny Moya Notes Date Note Type Note Provider Name and Address Organization Details Recorded Time 03/01/2024 text/html ROS as noted in the HPI This is a 73-year-old female referred by [...] weight loss no hemoptysis. HEATHER VILLEGAS MD [address] [place] [address], [phone] 03/01/2024 12:27:22 03/28/2024 text/html ROS as noted in the HPI She is doing much better no recent exacerbations. She feels overall [...] have reviewed the report HEATHER VILLEGAS MD [address] [place] [address], [address], [facility] 03/28/2024 15:44:17 06/28/2024 text/html ROS as noted in the HPI She has been doing very well without any recent exacerbations. She [...] of cigarettes a day HEATHER VILLEGAS MD [address] [place] [address] [place], [address], [facility] 06/28/2024 14:53:04 01/02/2025 text/html ROS as noted in the [...] beneficial for her conditions. HEATHER VILLEGAS MD [address] [place] [address], [phone], [facility] 01/02/2025 14:58:13 OBGyn Episode No OBEpisode recorded.
[2025-05-05 09:51] LABS: Blood Urea Nitrogen 28 mg/dl (7-17); Creatinine,Serum 0.90 mg/dl (0.52-1.04); Estimated Glomerular Filt Rate 61 ml/min (>60); GFR (African American) 74 ML/MIN (>60)
--- NOTE | 2025-05-05 10:00 | CT_ITS ---
FINAL REPORT TECHNIQUE: Axial CT of the abdomen and pelvis, without and with IV contrast. This study was performed with techniques to keep radiation doses as low as reasonably achievable, (ALARA). Individualized dose reduction techniques using automated exposure control or adjustment of mA and/or kV according to the patient''s size were employed. CLINICAL HISTORY: Renal Atrophy COMPARISON: none FINDINGS: Abdomen: Lung bases are clear. Liver has an unremarkable CT appearance. The spleen, pancreas and adrenal glands are unremarkable. Precontrast imaging shows a dominant left renal pelvic stone measuring up to 12 mm with moderate left hydronephrosis. Lower pole left renal stones measure up to 6 mm. No right renal stone disease. No significant renal atrophy. Renal size is normal. Postcontrast imaging of the kidneys shows a left hepatic cyst. No bowel obstruction or fluid collection is seen. Pelvis: The appendix is not visualized. Moderate sigmoid diverticulosis. Status post hysterectomy. There is a tiny lower midline abdominal wall hernia containing fat. No fluid collection or adenopathy is seen. IMPRESSION: Left renal stone disease with moderate left hydronephrosis secondary to a dominant left renal pelvic stone. No significant renal atrophy. Reviewed, Interpreted and Dictated by Edmund Carrillo MD Transcribed by Gloria Moffett Authenticated and [facility]
[2025-05-05] MEDS: IOPAMIDOL-370 (76%);100ML BOTTLE 75 ML IV (10:42)
[2025-05-05] MEDS: SODIUM CHLORIDE 0.9% 10ML SYR (RAD ONLY) 10 ML IV (10:42)
== END 2025-05-05 23:59 | disposition home or self-care (01) ==
LOC: RAD 09:22
PROVIDERS: PCP Family Medicine; Visit Provider Urology
DX: N13.2 Hydronephrosis with renal and ureteral calculous obstruction (principal); N26.1 Atrophy of kidney (terminal)
CPT/HCPCS: 74178; 82565; 84520; Q9967

== ENCOUNTER 2025-05-12 10:28 | Outpatient (CLI) | payer MEDICARE, SELFPAY ==
[2025-05-12 15:12] LABS: Chloride 100 mmol/L (98-107); Potassium 4.6 mmoL/L (3.5-5.1); Sodium 132 mmol/L (136-145)
[2025-05-12 15:15] LABS: Alanine Aminotransferase 48 U/L (12-78); Alkaline Phosphatase 96 U/L (38-126); Anion Gap 6.6 mEq/L (5-15); Aspartate Amino Transferase 41 U/L (14-36); Bilirubin,Total 0.4 mg/dl (0.2-1.3); Blood Urea Nitrogen 17 mg/dl (7-17); Calcium 8.9 mg/dl (8.4-10.2); Carbon Dioxide 30 mmol/L (22.0-30.0); Cholesterol 116 mg/dl (140-200); Creatinine,Serum 0.90 mg/dl (0.52-1.04); Estimated Glomerular Filt Rate 61 ml/min (>60); GFR (African American) 74 ML/MIN (>60); Glucose 90 mg/dl (74-100); HDL Cholesterol 62 mg/dl (40-60); Total Protein,Serum 6.8 g/dl (6.3-8.2); Triglycerides 86 mg/dl (30-150)
[2025-05-12 16:23] LABS: Albumin Level 3.9 g/dl (3.5-5.0); Albumin/Globulin Ratio 1.3 (1.1-1.8); Globulin 2.9 g/dL (1.3-3.2)
--- OUTSIDE RECORDS SUMMARY | 2025-05-15 10:39 | XMS_ITS | Data Portability ---
Author Organization [facility] FUNMI Alejo ANDERSON CLOSED Address [address] [facility] [address] [place] [address] Assessment Encounter Date Assessment Date Assessment LastModified [...] Organization Details Last Modified Time Details Appointments NEW PATIENT UROLOGY 2024 01:30P M JOSEPH HAAS MD Not available Not available Not available CT SCAN 2024 02:00P M ct_scan Not available Not available Not available RECHECK 2024 02:30P M HEATHER VILLEGAS MD Not available Not available Not available Lab None recorde d. Referral None recorde d. Procedures pulse oximetr y with exercis e (PROC) 2023 024 [facility], [facility], [facility] [address], [place], [address], 03/01/2024 12:52:31 Surgeries None recorde d. Imaging CT, chest, w/o contras t 2024 025 [facility], [address] [place], [address], 05/08/2025 08:21:34 CT, chest, w/o contras t 2023 024 [facility], [address] [place], [address], 01/02/2025 14:15:49 LDCT, chest, for lung cancer screeni ng - The provide r's office will call and schedul e test with Radiolo gy Dept and then the patient will be contact ed with details . 2023 [facility], [address] [place], [address], 06/28/2024 13:40:29 Medication Orders Trelegy Ellipta 100 mcg-62. 5 mcg-25 mcg powder for inhalat ion 2024 025 [facility]47859, [address], [id number], 01/02/2025 14:38:30 Trelegy Ellipta 100 mcg-62. 5 mcg-25 mcg powder for inhalat ion 2023 024 [facility], [address], [id number], 06/28/2024 14:43:48 albuter ol sulf 90 mcg/act uation breath activat ed powder inhaler ,sensor 2023 024 [facility], [address], [id number], 06/28/2024 14:43:48 Trelegy Ellipta 100 mcg-62. 5 mcg-25 mcg powder for inhalat ion 2023 024 [facility] #24895, [address] [place], [id number], 03/28/2024 14:31:11 Ventoli n HFA 90 mcg/act uation aerosol inhaler 2023 024 [facility] [employer] [facility], [address] [place], [id number], 03/28/2024 14:31:34 albuter ol sulfate HFA 90 mcg/act uation aerosol inhaler 2023 024 [facility], [address] [address] [place], [phone], 03/01/2024 11:03:21 Trelegy Ellipta 100 mcg-62. 5 mcg-25 mcg powder for inhalat ion 2023 024 [facility], [address] [place], [id number], 03/01/2024 11:14:03 Patient TargetsNo targets recorded. Patient Instructions Encounter Date Encounter Id Patient Instructions Last Modified By Organization Details Last Modified Time 03/01/2024 [id number] [facility] QUIT LINE amedaiyese Not available [...] . [email or web address] Not available 03/01/2024 12:26:38 03/28/2024 [id number] [facility] [employer] QUIT LINE amedaiyese Not available 03/28/2024 15:36:17 She is doing fairly well with significant improvement in her symptoms I have given her a discount card for Trelegy I have again strongly advised on smoking cessation amedaiyese Not available 03/28/2024 15:43:56 06/28/2024 [id number] I have discussed the new finding of a pulmonary nodule with her she will have a follow-up in 6 months. I have strongly encouraged her on smoking cessation I have reviewed correct inhaler technique with her again. [email or web address] Not available 06/28/2024 14:46:43 01/02/2025 [id number] [facility] QU[facility] amedaiyese Not available [...] sment * Age 50-80 YES Not Available [facility] [address], [address], 03/01/2024 10:59:33 03/01/20 24 03/01/2024 lung cance r scree shanice eligi bilit y asses sment * Age 50-77 Traditional Medicare YES Not Available [facility] Pulmonary [address] [address], [place], [address], 03/01/2024 10:59:33 03/01/20 24 03/01/2024 lung cance r scree shanice eligi bilit y asses sment * Either current smoker or has quit in last 15 years YES Not Available [facility] Pulmonary [address] [address], [place], [address], 03/01/2024 10:59:33 03/01/20 24 03/01/2024 lung cance r scree shanice eligi bilit y asses sment * Average of one pack a day for 20 years (20 pack years) YES Not Available [facility] [address] [address], [place], [address], 03/01/2024 10:59:33 03/01/20 24 03/01/2024 lung cance r scree shanice eligi bilit y asses sment * Displays signs or symptoms of lung cancer NO Not Available [facility] [address] [address], [place], [address], 03/01/2024 10:59:33 03/01/20 24 03/01/2024 lung cance r scree shanice eligi bilit y asses sment * Shared decision making with patient, Risks and benefits of CT Lung screen discussed YES Not Available [facility] Pulmonary [address] [facility] [address], [place], [address], 03/01/2024 10:59:33 03/01/20 24 03/01/2024 lung cance r scree shanice eligi bilit y asses sment * Smoking cessation counseling provided YES Not Available [facility] Pulmonary [address] [facility] [address], [place], [address], 03/01/2024 10:59:33 03/01/20 24 03/01/2024 lung cance r scree shanice eligi bilit y asses sment * Order provided for LDCT YES Not Available [facility] Pulmonary [address] [facility] [address], [place], [address], 03/01/2024 10:59:33 03/01/20 24 03/01/2024 XR, chest , 2 view [facility] [address] [facility] [address] [facility], [place] [address] Patien t Name: VICTORINA Harrington t : 9[address] Patiraúl t Orderi ng Provid er: [facility] EXAM DATE: 2023 EXAM: XR CHEST PA/LAT [...] Linares MD on 024 10:36 AM amedaiyese [facility] Radiology Pulmonary [address] [place], [address], 03/01/2024 13:09:39 03/08/20 24 01/05/2024 CT, chest , w/o contr ast No observ ation record ed. [facility] [address], [place], [address], 03/08/2024 15:54:30 06/28/20 24 06/28/2024 LDCT, chest , for lung cance r scree shanice [facility] [address] [facility] [place] [address] Patien t Name: VICTORINA Tinocoen t : 952 Patien t Orderi ng Provid er: EDGARDO DE MEDAIY PRADIP EXAM DATE: 2023 EXAM: CT CHEST LUNG NODULE SCREEN ING CLINIC AL INFORM ATION: Lung cancer screen ing. Histor y of smokin g for 54 pack years. Patiraúl laguerre is a curren t smoker . 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: Exam [...] Linares MD on 2023 1:35 PM amedaiyese [facility] [address] [place] [address], [place], [address], 06/28/2024 14:30:31 01/03/20 25 01/02/2025 CT, chest , w/o contr ast [place] [address] [facility] [place] [address] Patien t Name: VICTORINA ENGLE Patien t : [address]52 Patien t Orderi ng Provid er: AYORIN DE MEDAIY PRADIP EXAM DATE: 2024 EXAM: CT CHEST [...] Linares MD on 025 2:10 PM amedaiyese [facility] [address] [place], [address], 01/02/2025 14:20:37 05/08/20 25 05/05/2025 CT, abdom en + pelvi s, w/wo contr ast No observ ation record ed. [email or web address] [facility] [address], [place], [address], 05/09/2025 08:42:21 Result Notes Documentation Provider Name and Address Organization Details Recorded Time Xr, Chest, 2 View : [address], [address] [address] Patient Name: BONNY ENGLE Patient : 1950 Patient Ordering Provider: HEATHER VILLEGAS EXAM DATE: 03/01/2024 EXAM: XR CHEST PA/LAT CLINICAL INFORMATION: Cough. IMAGES PROVIDED: PA and lateral views of the chest. COMPARISON: None. FINDINGS: Heart size is within normal limits. Lung castillo are clear. IMPRESSION: No acute cardiopulmonary changes. Interpreted By: Tenzin Linares MD HER VILLEGAS MD [address] [place] [address], [address], [facility] 03/01/2024 13:09:39 Ldct, Chest, For Lung Cancer Screening : [address] [address] Patient Name: BONNY ENGLE Patient : 1950 Patient Ordering Provider: HEATHER [...] By: Tenzin Linares MD HER VILLEGAS MD [address] [place] [address], [address] [place] [address] 06/28/2024 14:30:31 Ct, Chest, W/o Contrast : [address] [address] Patient Name: BONNY ENGLE Patient : 1950 Patient Ordering Provider: HEATHER [...] document stability Interpreted By: Tenzin Linares MD [place], [address], [facility] 01/02/2025 14:20:37 Problems Name Problem SNOMED Code Status Onset Date Resolution Date Notes Provider Name and Address Organization Details Recorded Time Chronic obstructive pulmonary disease 26527673 Active 2023 [place], [address], [facility] 4 10:54:43 Nicotine dependence 37039712 Active 2023 HEATHER VILLEGAS MD [facility] [place], [address], [facility] 4 10:55:12 Solitary nodule of lung 761176348 Active 2023 [place], [address], [facility] 4 14:37:01 Obstructive sleep apnea syndrome 39965350 Active 2024 [place], [address], [facility] 5 14:41:07 Severe chronic obstructive pulmonary disease 471607757 Active 2024 [place], [address], [facility] 14:43:41 Moderate chronic obstructive pulmonary disease 782783165 Active 2024 HEATHER VILLEGAS MD [address] [place], [address], [facility] 14:56:50 Problem Notes None recorded. Procedures Surgical History Date Name Laterality Status Provider Name and Address Organization Details Recorded Time 03/01/20 Airway Resistance completed Mirna Kira [facility] 03/01/2024 09:56:55 03/01/20 24 [facility] Cap[facility] 09:57:07 03/01/20 24 Lung Volumes, [facility]mography [facility] 03/01/2024 09:56:57 03/01/20 24 Demonstration Aerosol/Generator/N ebulizer/Optichambe r completed [facility] 03/01/2024 09:57:09 03/01/20 24 Pulmonary Function Testing completed HEATHER VILLEGAS MD [address] [place], [address], [facility] 03/01/2024 12:20:40 03/01/20 24 Spirometry with Bronchodilator completed [facility] 03/01/2024 09:57:12 insertion of arterial stent completed [facility] 03/01/2024 09:28:57 Back Surgery completed Mirna Kira [facility] 03/01/2024 09:38:03 cholecystectomy completed Mirna Kira [facility] 03/01/2024 09:38:14 hernia repair completed Mirna Kira [facility] 03/01/2024 09:38:23 ligation of bilateral fallopian tubes completed Mirna Kira [facility] 03/01/2024 09:38:46 appendectomy completed Mirna Kira [facility] 03/01/2024 09:39:09 [facility]/01/2024 09:39:47 procedure on foot completed Mirna Malone [facility] 03/01/2024 09:40:07 Imaging Results None recorded. Procedure Notes None recorded. Medical Equipment None Reported. Allergies Allergen ID Allergen Name Allergen Category Reaction Reaction Severity Criticality Documentation Date Start Date Code Code System Note Provider Name and Address Organization Details Recorded Time 974129 Pepto-bis mol medicatio n Not available Not available Not available 03/01/2024 76379 RxNorm TURNS TONGU E BLACK Mirna Malone [facility] 4 09:30:59 928984 gabapenti n medicatio n seizure Not available Not available 03/01/2024 75743 RxNorm Mirna Malone [facility] 4 09:31:20 Medications Name Sig Start [...] Updated DateTime 5 161.29 cm 27.2 kg/m2 86112.4 1 g 86 /min 95 % 95 % 115/80 mm[Hg] Mary Negrita [facility] 5 14:29:41 Date Recorded Body weight Body mass index (BMI) Body height Oxygen saturation Oxygen saturation in Arterial blood by Pulse oximetry Heart rate Systolic And Diastolic Provider Name and Address Organization Details Last Updated DateTime 4 14692.9 3 g 24.4 kg/m2 161.29 cm 93 % 93 % 91 /min 118/74 mm[Hg] Mirna Malone [facility] 4 09:44:29 Date Recorded Body height Body mass index (BMI) Body weight Heart rate Oxygen saturation Oxygen saturation in Arterial blood by Pulse oximetry Systolic And Diastolic Provider Name and Address Organization Details Last Updated DateTime 4 161.29 cm 25.3 kg/m2 02215.8 9 g 87 /min 96 % 96 % 122/60 mm[Hg] Renate Hernandez [facility] 4 14:17:30 Date Recorded Body height Body mass index (BMI) Body weight Oxygen saturation Oxygen saturation in Arterial blood by Pulse oximetry Heart rate Systolic And Diastolic Provider Name and Address Organization Details Last Updated DateTime 4 161.29 cm 26.9 kg/m2 46655.2 2 g 96 % 96 % 85 /min 125/79 mm[Hg] Lydia Sanchez [facility] 4 14:30:06 Social History Question Answer Notes LastModified by [employer] Details LastModified Time Tobacco Smoking Status Current Every Day Smoker Mirna Malone [facility] 03/01/2024 09:34:01 What Is Your Level Of Caffeine Consumption? Moderate Information not available 01/02/2025 What Was The Date Of Your Most Recent Tobacco Screening? 01/02/2025 Information not available 01/02/2025 At What Age Did You Start Smoking Tobacco? 19 [email or web address] Information not available 03/01/2024 How Much Tobacco Do You Smoke? 1 PPD [email or web address] Information not available 03/01/2024 How Many Years Have You Smoked Tobacco? 54 [email or web address] Information not available 03/01/2024 Sex: Unknown Functional Status Question Answer Note LastModified by [employer] Details LastModified Time Do you use any illicit or recreational drugs? No [email or web address] Information not available 03/01/2024 Do you or have you ever used any other forms of tobacco or nicotine? No [email or web address] Information not available 03/01/2024 What is your level of alcohol consumption? None [email or web address] Information not available 03/01/2024 Are you currently employed? No retired Information not available 01/02/2025 Mental Status None recorded. Family History Relationship Description Onset Age of this Age Resolved Age Notes LastModified by Organization Details LastModified Time Mother Hypoglycemia Not avai lable 03/01/2024 09:32:24 Mother Heart disease [email or web address] Not available 2023 09:32:37 Father Family history of stroke [email or web address] Not available 2023 09:32:50 Medical History Condition Response Hospitalizations Y Arthritis Y Hypertension Y Chronic Obstructive Pulmonary Disease Y High Cholesterol Y Gynecological HistoryNo gynecological history recorded. Obstetrics History GPAL:G 0 P 0 0 0 0 Past Encounters Encounter ID Performer Location Encounter Start Date Encounter Closed Date Diagnosis/Indication Diagnosis SNOMED-CT Code Diagnosis ICD10 Code Diagnosis IMO Codes Diagnosis Note [id number] HEATHER VILLEGAS MD PULMONARY [address] [facility] [place] [address] 03/01/2024 09:19:59 03/01/2024 14:27:34 Chronic obstructive pulmonary disease 69439631 J44.9 She has COPD. It is moderately [...] 2. She meets criteria for LDCT scan. [id number] HEATHER VILLEGAS MD PULMONARY [address] [facility] [place] [address] 03/28/2024 14:05:10 03/28/2024 16:23:32 Chronic obstructive pulmonary disease 63831125 J44.9 She has COPD. It is moderately [...] a follow-up LDCT scan in November 2024. [id number] HEATHER VILLEGAS MD PULMONARY [address] [facility] [place] [address] 06/28/2024 13:48:27 06/28/2024 15:23:27 Solitary nodule of lung 882525769 R91.1 She has a new 6 mm pleural-ba sed nodule in the right upper lobe this was not there previously 1. She has extensive risk factors including her age , smoking history and the location of the nodule2. We will plan for a follow-up CT scan in 6 months. Chronic ob structive pulmonary disease 94738861 J44.9 She has COPD. It is moderately [...] CT chest without contrast in November 2024. [id number] HEATHER VILLEGAS MD PULMONARY [address] [facility] [place] [address] 01/02/2025 14:22:54 01/02/2025 15:41:09 Chronic obstructive pulmonary disease 99983907 J44.9 Details as indicated above. I will renew her Trelegy prescripti on Solitary n odule of lung 840650077 R91.1 She has a 6 mm pleural-ba [...] June 2025. Obstructiv e sleep apnea syndrome 09655459 G47.33 [id number] I do not have a copy of the report of a home sleep study.She will send this to me.This was ordered by her cardiologi st1. Review full report from Dr. Walden.2 . Discuss potential CPAP therapy.3. Consider repeat sleep study if necessary. She is not sure about the validity of the results. Moderate c hronic obstructive pulmonary disease 978520647 J44.9 [id number] She has COPD. It is moderately severe. [...] Member ID Saavedra Member ID Guarantor Name 05/12/2025 1 [place] Bonny Engle [id number] Bonny Engle 05/12/2025 2 [employer] (MEDICARE SUPPLEMENT) Bonny Engle [id number] Bonny Enlge Notes Date Note Type Note Provider Name [...] weight loss no hemoptysis. HEATHER VILLEGAS MD [address] [place] [address] [place], [address], [facility] 03/01/2024 12:27:22 03/28/2024 text/html ROS as noted [...] have reviewed the report HEATHER VILLEGAS [facility] [place], [address], [facility] 03/28/2024 15:44:17 06/28/2024 text/html ROS as noted [...] of cigarettes a day HEATHER VILLEGAS MD [address] [place] [address], [address], [facility] 06/28/2024 14:53:04 01/02/2025 text/html ROS as noted [...] beneficial for her conditions. HEATHER VILLEGAS MD [address] [place] [address], [address], [facility] 01/02/2025 14:58:13 OBGyn Episode No OBEpisode recorded.
== END 2025-05-12 23:59 ==
LOC: LAB.DROPOF 05-15 10:28
PROVIDERS: PCP Family Medicine; Visit Provider Family Medicine
DX: E78.5 Hyperlipidemia, unspecified (principal)
CPT/HCPCS: 80053; 80061

== ENCOUNTER 2025-07-11 16:30 | Emergency (ER) | payer MEDICARE, SELFPAY ==
--- OUTSIDE RECORDS SUMMARY | 2025-05-24 09:42 | XMS_ITS | Encounter Summary ---
Author Organization [facility] [facility] ([place], [place], [place], [place], [place]) Address [address] [place] [address] Care Team Providers Care K9 Handler Name Role Phone Rubin Puga MD Primary Care Provider [phone] Encounter Details Date Type Department Care Team (Latest Contact Info) Description 05/24/2025 9:42 AM EST - 05/24/2025 11:59 PM EST Hospital Encounter [facility] Preadmission Testing [address] [facility] [address] [place] [phone] Rubin Puga MD [address] [place] [address] Preop examination (Primary Dx); Renal stone; Tobacco abuse; GABRIELLA (obstructive sleep apnea); Mood disorder (HCC); OAB (overactive bladder) Discharge Disposition: Home or Self Care Social History Tobacco Use Types Packs/Day Years Used Date Smoking Tobacco: Every Day Cigarettes Smokeless Tobacco: Never Tobacco Cessation:Ready to Q uit: Not Asked; Counseling Given: Not Answered Alcohol Use Standard Drinks/Week Comments Not Currently 0 (1 standard drink = 0.6 oz pur e alcohol) Comments Unknown Sex and Gender Information Value Date Recorded Sex Assigned at Not on file Legal Sex Female 4:26 PM CDT Gender Identity Not on file Sexual Orientation Not on file documented as of this encounter Last Filed Vital Signs Vital Sign Reading Time Taken Comments Blood Pressure 116/55 05/24/2025 10:27 AM EST Pulse 73 05/24/2025 10:27 AM EST Temperature 35.9 C (96.7 F) 05/24/2025 10:27 AM EST Respiratory Rate 18 05/24/2025 10:27 AM EST Oxygen Saturation 96% 05/24/2025 10:27 AM EST Inhaled Oxygen Concentration - - Weight 70.3 kg (155 lb) 05/24/2025 10:27 AM EST Height 160 cm (5' 3 ) 05/24/2025 10:27 AM EST Body Mass Index 27.46 05/24/2025 10:27 AM EST documented in this encounter Functional Status * Tidal Volume Answer Date of Assessment Author 310 05/24/2025 10:27 AM Denise Mckeon RN * Obstructive Sleep Apnea Screen Question Answer Date of Assessment Author Have you been diagnosed with Obstructive Sleep Apnea (GABRIELLA) or using GABRIELLA device at home? Yes 05/24/2025 10:55 AM Denise Gaines RN * Shock Index Answer Date of Assessment Author 0.63 05/24/2025 10:27 AM Denise Mckeon RN * Vitals Question Answer Date of Assessment Author BP 116/55 05/24/2025 10:27 AM HELPER/DRIVER Denise Concepcion RN Temp 96.7 05/24/2025 10:27 AM HELPER/DRIVER Denise Concepcion RN Temp src Temporal Artery 05/24/2025 10:27 AM Denise Call RN Pulse 73 05/24/2025 10:27 AM Denise Castellano RN Resp 18 05/24/2025 10:27 AM Denise Castellano RN SpO2 96 05/24/2025 10:27 AM Denise Castellano RN Heart Rate Source Monitor/Pulse Ox 05/24/2025 10:27 AM Denise Mckeon RN * Height and Weight Question Answer Date of Assessment Author Height 63 05/24/2025 10:27 AM Denise Castellano RN Weight 2480 05/24/2025 10:27 AM Denise Castellano RN BMI (Calculated) 27.5 05/24/2025 10:27 AM Denise Mckeon RN * Restart Vitals Timer Answer Date of Assessment Author Yes 05/24/2025 10:27 AM Denise Mckeon RN * Obstructive Sleep Apnea Screen Question Answer Date of Assessment Author Have you been diagnosed with Obstructive Sleep Apnea (GABRIELLA) or using GABRIELLA device at home? Yes 05/24/2025 10:55 AM Denise Gaines RN * Vitals Question Answer Date of Assessment Author BP 116/55 05/24/2025 10:27 AM Denise Castellano RN Pulse 73 05/24/2025 10:27 AM HELPER/DRIVER Denise Concepcion RN Resp 18 05/24/2025 10:27 AM Denise Castellano RN SpO2 96 05/24/2025 10:27 AM Denise Castellano RN * Height and Weight Question Answer Date of Assessment Author BMI (Calculated) 27.5 05/24/2025 10:27 AM Denise Mckeon RN documented as of this encounter Mental Status * Tidal Volume Answer Entry Date Author 310 05/24/2025 10:27 AM Denise Mckeon RN * Obstructive Sleep Apnea Screen Question Answer Entry Date Author Have you been diagnosed with Obstructive Sleep Apnea (GABRIELLA) or using GABRIELLA device at home? Yes 05/24/2025 10:55 AM Denise Gaines RN * Shock Index Answer Entry Date Author 0.63 05/24/2025 10:27 AM Denise Mckeon RN * Vitals Question Answer Entry Date Author BP 116/55 05/24/2025 10:27 AM Denise Castellano RN Temp 96.7 05/24/2025 10:27 AM Denise Castellano RN Temp src Temporal Artery 05/24/2025 10:27 AM Denise Call RN Pulse 73 05/24/2025 10:27 AM Denise Castellano RN Resp 18 05/24/2025 10:27 AM Denise Castellano RN SpO2 96 05/24/2025 10:27 AM Denise Castellano RN Heart Rate Source Monitor/Pulse Ox 05/24/2025 10:27 AM Denise Mckeon RN * Height and Weight Question Answer Entry Date Author Height 63 05/24/2025 10:27 AM Denise Castellano RN Weight 2480 05/24/2025 10:27 AM Denise Castellano RN BMI (Calculated) 27.5 05/24/2025 10:27 AM Denise Mckeon RN documented in this encounter Medications at Time of Discharge albuterol 90 mcg/actuation inhaler Inhale 1 puff by mouth every 6 (six) hours as needed for shortness of breath or wheezing. 05/12/2025 aspirin 81 MG EC tablet Take 1 tablet (81 mg total) by mouth daily. azelastine (ASTELIN) 137 mcg (0.1 %) nasal spray Administer 2 sprays into each nostril 2 (two) times daily. 03/25/2025 clopidogreL (PLAVIX) 75 mg tablet Take 1 tablet (75 mg total) by mouth daily. 02/27/2025 escitalopram (LEXAPRO) 5 MG tablet Take 1 tablet (5 mg total) by mouth daily. 05/08/2025 estradioL (ESTRACE) 0.01 % (0.1 mg/gram) vaginal cream Insert into the vagina nightly. 04/10/2025 nitrofurantoin, macrocrystal-monohy drate, (MACROBID) 100 MG capsule Take 1 capsule (100 mg total) by mouth nightly. 05/15/2025 oxybutynin (DITROPAN-XL) 10 MG 24 hr tablet Take 1 tablet (10 mg total) by mouth daily. 05/08/2025 phenazopyridine (PYRIDIUM) 100 MG tablet Take 1 tablet (100 mg total) by mouth 3 (three) times daily as needed. 03/01/2025 Premarin 0.625 mg/gram vaginal cream Insert 1 g into the vagina once a week. 04/03/2025 ranolazine (RANEXA) 500 MG 12 hr tablet Take 1 tablet (500 mg total) by mouth 2 (two) times daily. 05/08/2025 rosuvastatin (CRESTOR) 40 MG tablet Take 1 tablet (40 mg total) by mouth daily. 05/08/2025 spironolactone (ALDACTONE) 25 MG tablet Take 1 tablet (25 mg total) by mouth daily. 05/08/2025 terbinafine (LamISIL) 1 % cream Apply topically 2 (two) times daily. 03/07/2025 Trelegy Ellipta 100-62.5-25 mcg dsdv Take 1 puff by mouth daily. 05/05/2025 valsartan (DIOVAN) 80 MG tablet Take 1 tablet (80 mg total) by mouth 2 (two) times daily. 04/10/2025 cefUROXime (CEFTIN) 500 MG tablet Take 1 tablet (500 mg total) by mouth 2 (two) times daily. 10 tablet 06/09/2025 ondansetron (ZOFRAN-ODT) 8 MG disintegrating tablet Take 1 tablet (8 mg total) by mouth every 8 (eight) hours as needed. 03/25/2025 oxyCODONE-acetamino phen (PERCOCET) 5-325 mg per tablet Take 1 tablet by mouth every 6 (six) hours as needed for up to 10 days Look-alike/So und-alike medication. Max Daily Amount: 4 tablets 20 tablet 06/09/2025 documented as of this encounter H&P Notes * Jeana Spence PA-C - 05/24/2025 11:00 AM EST History & Physical Name: Bonny Engle : 1950 Age: 75 y.o. SUBJECTIVE: Chief Complaint / Reason for Visit: preop exam HPI: Bonny Engle is a 75 y.o. female who presents prior to left ESWL with Dr. Sinclair secondary to kidney stones. Patient states that she has has intermittent flank pain and hematuria. She is completing Macrobid antibiotic therapy. Review of systems - Denies active hematuria Positive for intermittent flank pain HISTORY: Patient Active Problem List Diagnosis Date Noted Renal stone 05/24/2025 CAD (coronary artery disease) 05/24/2025 Tobacco abuse 05/24/2025 COPD (chronic obstructive pulmonary disease) (HCC) 05/24/2025 GABRIELLA (obstructive sleep apnea) 05/24/2025 Mood disorder (HCC) 05/24/2025 OAB (overactive bladder) 05/24/2025 Hyperlipidemia 05/24/2025 HTN (hypertension) 05/24/2025 Past Surgical History: Procedure Laterality Date APPENDECTOMY CERVICAL FUSION screws CHOLECYSTECTOMY FOOT SURGERY Bilateral HEMORROIDECTOMY HERNIA REPAIR HYSTERECTOMY TUBAL LIGATION ALLERGIES: Gabapentin and Bismuth Subsalicylate Social History Tobacco Use Smoking status: Every Day Current packs/day: 1.00 Types: Cigarettes Smokeless tobacco: Never Substance Use Topics Alcohol use: Not Currently FH Mom- from Alzheimer's and pneumonia Dad- from trauma Current Outpatient Medications on File Prior to Encounter Medication Sig Dispense Refill albuterol 90 mcg/actuation inhaler Inhale 1 puff by mouth every 6 (six) hours as needed for shortness of breath or wheezing. aspirin 81 MG EC tablet Take 1 tablet (81 mg total) by mouth daily. clopidogreL (PLAVIX) 75 mg tablet Take 1 tablet (75 mg total) by mouth daily. escitalopram (LEXAPRO) 5 MG tablet Take 1 tablet (5 mg total) by mouth daily. estradioL (ESTRACE) 0.01 % (0.1 mg/gram) vaginal cream Insert into the vagina nightly. nitrofurantoin, macrocrystal-monohydrate, (MACROBID) 100 MG capsule Take 1 capsule (100 mg total) by mouth nightly. ondansetron (ZOFRAN-ODT) 8 MG disintegrating tablet Take 1 tablet (8 mg total) by mouth every 8 (eight) hours as needed. oxybutynin (DITROPAN-XL) 10 MG 24 hr tablet Take 1 tablet (10 mg total) by mouth daily. ranolazine (RANEXA) 500 MG 12 hr tablet Take 1 tablet (500 mg total) by mouth 2 (two) times daily. rosuvastatin (CRESTOR) 40 MG tablet Take 1 tablet (40 mg total) by mouth daily. spironolactone (ALDACTONE) 25 MG tablet Take 1 tablet (25 mg total) by mouth daily. Trelegy Ellipta 100-62.5-25 mcg dsdv Take 1 puff by mouth daily. valsartan (DIOVAN) 80 MG tablet Take 1 tablet (80 mg total) by mouth 2 (two) times daily. azelastine (ASTELIN) 137 mcg (0.1 %) nasal spray Administer 2 sprays into each nostril 2 (two) times daily. phenazopyridine (PYRIDIUM) 100 MG tablet Take 1 tablet (100 mg total) by mouth 3 (three) times daily as needed. Premarin 0.625 mg/gram vaginal cream Insert 1 g into the vagina once a week. terbinafine (LamISIL) 1 % cream Apply topically 2 (two) times daily. No current facility-administered medications on file prior to encounter. OBJECTIVE: Blood pressure 116/55, pulse 73, temperature 96.7 ??F (35.9 ??C), temperature source Temporal Artery, resp. rate 18, height 1.6 m (5' 3 ), weight 70.3 kg (155 lb), SpO2 96%. Physical Exam Vitals and nursing note reviewed. Constitutional: Appearance: Normal appearance. She is normal weight. HENT: Head: Normocephalic. Nose: Nose normal. Mouth/Throat: Mouth: Mucous membranes are moist. Eyes: Conjunctiva/sclera: Conjunctivae normal. Cardiovascular: Rate and Rhythm: Normal rate and regular rhythm. Heart sounds: No murmur heard. Pulmonary: Effort: Pulmonary effort is normal. Breath sounds: Normal breath sounds. Musculoskeletal: General: Normal range of motion. Neurological: General: No focal deficit present. Mental Status: She is alert. Psychiatric: Mood and Affect: Mood normal. Behavior: Behavior normal. Thought Content: Thought content normal. LABORATORY Results for orders placed or performed during the hospital encounter of 05/24/25 CBC - Hemogram (SJ-BKR) Result Value Ref Range WBC 9.6 3.9 - 10.0 K/??L RBC 4.03 3.93 - 5.22 M/??L Hemoglobin 12.7 11.2 - 15.7 GM/DL Hematocrit 38.7 34.1 - 44.9 % MCV 96 (H) 79 - 95 fL MCH 31.5 25.6 - 32.2 pg MCHC 32.8 32.2 - 36.5 GM/DL RDW 14.9 (H) 11.6 - 14.4 % Platelets 243 163 - 369 K/CU MM MPV 9.8 9.4 - 12.4 fL nRBC 0 (L) 1 - 5 /100 WBC Basic Metabolic Panel Result Value Ref Range Sodium 138 136 - 146 meq/L Potassium 4.4 3.5 - 5.1 meq/L Chloride 105 102 - 112 meq/L CO2 29 21 - 32 meq/L Anion Gap 8 (L) 9 - 20 BUN 13 7 - 22 mg/dL Creatinine 0.92 0.55 - 1.02 mg/dL BUN/Creatinine 14 8 - 20 Glucose 91 74 - 100 mg/dL Calcium 9.1 8.5 - 10.1 mg/dL Osmolality Calc 275.4 mOsm/kg eGFR (mL/min/1.73m2) >60 >=60 mL/min/1.73m2 ASSESSMENT & PLAN: Active Problems: Renal stone CAD (coronary artery disease) Tobacco abuse COPD (chronic obstructive pulmonary disease) (HCC) GABRIELLA (obstructive sleep apnea) Mood disorder (HCC) OAB (overactive bladder) Hyperlipidemia HTN (hypertension) Preop exam Kidney stone Recurrent UTIs - Continue Estrace - Complete Macrobid - Continue Ditropan Obstructive sleep apnea, not on CPAP. Increases risk COPD Ongoing tobacco abuse, would benefit from total cessation. Not interested - Denies home oxygen - Bring inhalers day of procedure CAD - History of cardiac stent in 2023. Data deficient - Is holding Plavix per Linden Walden, cardiology - Must continue aspirin. Inform surgeon - Cardiac clearance obtained from Linden Walden 05/16/2025: Stable, acceptable risk, nonmodifiablerisks at this time. EF 57% per cardiology - Continue Ranexa Hyperlipidemia - Continue Crestor Hypertension - Continue valsartan, hold day of surgery - Continue spironolactone, hold day of surgery Mood disorder - Continue Lexapro RCRI 1 EKG send normal sinus rhythm Proceed. I have discussed with Dr. Sinclair Electronically signed by: Jeana Spence PA-C, 05/24/2025 at 11:39 AM Cosigned by Yuri Paez MD at 05/29/2025 10:26 AM EST ER/DRIVER ER/DRIVER ER/DRIVER documented in this encounter Procedure Notes * Denise Humphrey RN - 05/24/2025 11:00 AM EST Medication List ASK your doctor about these medications albuterol 90 mcg/actuation inhaler Medication Adjustments for Surgery: Continue until night before surgery Notes to patient: Bring with you the morning of surgery aspirin 81 MG EC tablet Medication Adjustments for Surgery: Continue until night before surgery Notes to patient: Per safety pin assembling machine operator note = do not stop aspirin azelastine 137 mcg (0.1 %) nasal spray Commonly known as: ASTELIN Medication Adjustments for Surgery: Other (Comment) Notes to patient: Patient does not take clopidogreL 75 mg tablet Commonly known as: PLAVIX Medication Adjustments for Surgery: Other (Comment) Notes to patient: Hold 7 days - Patient states she started holding on 05/22/25 - escitalopram 5 MG tablet Commonly known as: LEXAPRO Medication Adjustments for Surgery: Continue until night before surgery estradioL 0.01 % (0.1 mg/gram) vaginal cream Commonly known as: ESTRACE Medication Adjustments for Surgery: Continue until night before surgery nitrofurantoin (macrocrystal-monohydrate) 100 MG capsule Commonly known as: MACROBID Medication Adjustments for Surgery: Continue until night before surgery ondansetron 8 MG disintegrating tablet Commonly known as: ZOFRAN-ODT Medication Adjustments for Surgery: Continue until night before surgery oxybutynin 10 MG 24 hr tablet Commonly known as: DITROPAN-XL Medication Adjustments for Surgery: Continue until night before surgery phenazopyridine 100 MG tablet Commonly known as: PYRIDIUM Medication Adjustments for Surgery: Other (Comment) Notes to patient: Patient not taking Premarin 0.625 mg/gram vaginal cream Generic drug: estrogens (conjugated) Medication Adjustments for Surgery: Other (Comment) Notes to patient: Patient not taking ranolazine 500 MG 12 hr tablet Commonly known as: RANEXA Medication Adjustments for Surgery: Take morning of surgery with sip of water, no other fluids rosuvastatin 40 MG tablet Commonly known as: CRESTOR Medication Adjustments for Surgery: Continue until night before surgery spironolactone 25 MG tablet Commonly known as: ALDACTONE Medication Adjustments for Surgery: Continue until night before surgery terbinafine 1 % cream Commonly known as: LamISIL Medication Adjustments for Surgery: Other (Comment) Notes to patient: Patient not taking Trelegy Ellipta 100-62.5-25 mcg Dsdv Generic drug: [id number] Medication Adjustments for Surgery: Other (Comment) Notes to patient: Bring with you the morning of surgery valsartan 80 MG tablet Commonly known as: DIOVAN Medication Adjustments for Surgery: Other (Comment) Notes to patient: Do not take the night before surgery dose on 05/28/25 PM Do not take the morning of surgery dose on 05/29/25 AM Pre-Operative Vitamin, Minerals, Herbal Supplements Instructions In an effort to ensure a safe and successful surgical experience anesthesia recommends avoiding over the counter vitamins, minerals and herbal supplements for 10 days as these can interfere with anesthesia. Please ask us if you have any specific questions. EXAMPLES: multivitamins, Vitamin E, fish oil, Preservision AREDS Pre-Operative NSAID Medication Instructions Important: To reduce the risk of bleeding during surgery, it is recommended to avoid all Non-Steroidal Anti-Inflammatory Drugs for at least 10 days prior to your scheduled procedure. Do NOT take the following medications prescription or [id number]: Ibuprofen (Advil, Motrin) Naproxen (Aleve, Naprosyn) Excedrin, Bufferin Diclofenac (Voltaren) Indomethacin (Indocin) Meloxicam (Mobic) Ketorolac (Toradol) Celecoxib (Celebrex) Etodolac (Lodine) Note: Acetaminophen (Tylenol) may be used for pain relief unless otherwise instructed by your physician. Pre-Operative Bathing Instructions Take a shower with plain soap (dove, dial, ivory) the night before and the morning of surgery. Put clean sheets on your bed and wear clean pajamas the night before surgery. ER/DRIVER documented in this encounter Plan of Treatment Not on file documented as of this encounter Procedures Procedure Name Priority Date/Time Associated Diagnosis Comments FS_MODEL_IP_ECG 12-LEAD Routine 05/24/2025 10:31 AM EST Preop examination CBC HEMOGRAM (SJ-BKR) Routine 05/24/2025 10:25 AM EST Preop examination BASIC METABOLIC PANEL Routine 05/24/2025 10:25 AM EST Preop examination EKG-SCANNED 05/24/2025 documented in this encounter Results * ECG 12 lead (05/24/2025 10:31 AM EST) VENTRICULAR RATE EKG/MIN 69 BPM GE MUSE ATRIAL RATE (MCT) 69 BPM GE MUSE IA Interval 152 ms GE MUSE QRS-INTERVAL (MSEC) 76 ms GE MUSE QT Interval 386 ms GE MUSE QTC Interval 413 ms GE MUSE P [place] 92 degrees GE MUSE R AXIS (MCT) 56 degrees GE MUSE T Wave [place] 52 degrees GE MUSE [place] Diagnosis Normal sinus rhythm Normal ECG Confirmed by Farida BOWMAN SUZANNE ([id number]) on 05/25/2025 3:31:45 PM GE MUSE 05/24/2025 10:3 1 AM EST 05/25/2025 3:31 PM EST Toby Loving MD ECG ORDERABLES Final Res ult GE MUSE * (ABNORMAL) Basic Metabolic Panel (05/24/2025 10:25 AM EST) Sodium 138 136 - 146 meq/L 05/24/2025 11:22 AM [facility] Potassium 4.4 3.5 - 5.1 meq/L 05/24/2025 11:22 AM [facility] Chloride 105 102 - 112 meq/L 05/24/2025 11:22 AM [facility] CO2 29 21 - 32 meq/L 05/24/2025 11:22 AM [facility] Anion Gap 8(L) 9 - 20 05/24/2025 11:22 AM [facility] BUN 13 7 - 22 mg/dL 05/24/2025 11:22 AM [facility] Creatinine 0.92 0.55 - 1.02 mg/dL 05/24/2025 11:22 AM [facility] BUN/Creatinine 14 8 - 20 05/24/2025 11:22 AM [facility] Glucose 91 74 - 100 mg/dL 05/24/2025 11:22 AM [facility] Calcium 9.1 8.5 - 10.1 mg/dL 05/24/2025 11:22 AM [facility] Osmolality Calc 275.4 mOsm/kg 11:22 AM [facility] eGFR (mL/min/1.73m2) >60 >=60 mL/min/1.7 3m2 05/24/2025 11:22 AM [facility] Comment:eGFR of <60 suggests chronic kidney disease if found over a 3 month period of time. eGFR <15 indicates renal failure. Blood Venipuncture / Unknown 05/24/2025 10:25 AM EST 05/24/2025 10:54 AM EST Toby Loving MD LAB BLOOD ORDERABLES Maria Teresa burt Result [facility] [address] [place] [address] * (ABNORMAL) CBC - Hemogram (SJ-BKR) (05/24/2025 10:25 AM EST) WBC 9.6 3.9 - 10.0 K/ L 05/24/2025 11:00 AM [facility] RBC 4.03 3.93 - 5.22 M/ L 05/24/2025 11:00 AM [facility] Hemoglobin 12.7 11.2 - 15.7 GM/DL 05/24/2025 11:00 AM [facility] Hematocrit 38.7 34.1 - 44.9 % 05/24/2025 11:00 AM [facility] MCV 96(H) 79 - 95 fL 05/24/2025 11:00 AM [facility] MCH 31.5 25.6 - 32.2 pg 05/24/2025 11:00 AM [facility] MCHC 32.8 32.2 - 36.5 GM/DL 05/24/2025 11:00 AM [facility] RDW 14.9(H) 11.6 - 14.4 % 05/24/2025 11:00 AM EST [facility] Platelets 243 163 - 369 K/CU MM 05/24/2025 11:00 AM EST [facility] MPV 9.8 9.4 - 12.4 fL 05/24/2025 11:00 AM EST [facility] nRBC 0(L) 1 - 5 /100 WBC 05/24/2025 11:00 AM EST [facility] Blood Venipuncture / Unknown 05/24/2025 10:25 AM EST 05/24/2025 10:54 AM EST Toby Loving MD LAB BLOOD ORDERABLES Maria Teresa l Result [facility] [address] [phone] * EKG-SCANNED (05/24/2025) Narrative 05/24/2025 Ordered by an unspecified provider. us Default Scanning Provider SCAN ORDERS Final Result documented in this encounter Visit Diagnoses Diagnosis Preop examination- Primary Unspecified pre-operative examination Renal stone Calculus of kidney Tobacco abuse Tobacco use disorder GABRIELLA (obstructive sleep apnea) Obstructive sleep apnea (adult) (pediatric) Mood disorder (HCC) Unspecified episodic mood disorder OAB (overactive bladder) Renal stone Calculus of kidney CAD (coronary artery disease) Coronary atherosclerosis of unspecified type of vessel, [place] band or graft Tobacco abuse Tobacco use disorder COPD (chronic obstructive pulmonary disease) (HCC) Chronic airway obstruction, not elsewhere classified GABRIELLA (obstructive sleep apnea) Obstructive sleep apnea (adult) (pediatric) Mood disorder (HCC) Unspecified episodic mood disorder OAB (overactive bladder) Hyperlipidemia Other and unspecified hyperlipidemia HTN (hypertension) Unspecified essential hypertension documented in this encounter Care Teams K9 Handler Relationship Specialty Start Date End Date Rubin Puga MD [address] [place] [address] PCP - General Family Medicine 05/24/25 documented as of this encounter
--- OUTSIDE RECORDS SUMMARY | 2025-06-09 05:58 | XMS_ITS | Encounter Summary ---
Author Organization [facility] ([place], [place], [place], [place], [place]) Address [address] [place] [address] [address] Production General Manager Name Role Phone Rubin Puga MD Primary Care Provider + Reason for Visit * Auth/Cert (Routine) Specialty Diagnoses / Procedures Referred By Shireen laguerre Referred To Contact Diagnoses Uric acid nephrolithiasis SEE PRIMARY DX Procedures NJ LITHOTRIPSY XTRCORP SHOCK WAVE LITHOTRIPSY,EXTRACORPOREAL SHOCK WAVE (ESWL) [facility] [address] [place] [address] Phone: tel: fax: [facility] [address] [place] [address] Phone: tel: fax: Referral ID Status Reason Start Date Expiration Date Visits Re quested Visits Authorized [id number] 1 1 Encounter Details Date Type Department Care Team (Late st Contact Info) Description 06/09/2025 5:58 AM EST - 06/09/2025 9:50 AM EST Hospital Encounter [facility] [address] [place] [address] Reece Arevalo MD [address] [place] [address] [place] [address] Discharge Disposition: Home or Self Care Social History Tobacco Use Types Packs/Day Years Used Date Smoking Tobacco: Every Day Cigarettes Smokeless Tobacco: Never Alcohol Use Standard Drinks/Week Comments Not Currently [...] Sign Reading Time Taken Comments Blood Pressure 134/68 06/09/2025 9:36 AM EST Pulse 58 06/09/2025 9:36 AM EST Temperature 36.7 C (98 F) 06/09/2025 9:36 AM EST Respiratory Rate 16 06/09/2025 9:36 AM EST Oxygen Saturation 96% 06/09/2025 9:36 AM EST Inhaled Oxygen Concentration - - Weight 70.1 kg (154 lb 9.6 oz) 06/09/2025 7:05 A M EST Height - - Body Mass Index 27.39 05/24/2025 10:27 AM EST documented in this encounter Functional Status * HEENT Question Answer Date of Assessment Author HEENT (WDL) WDL 06/09/2025 9:37 AM Greg Elias RN R Ear Impaired hearing;Hearing aid 06/09/2025 9 :37 AM Greg Elias RN L Ear Impaired hearing;Hearing aid 06/09/2025 9 :37 AM Greg Elias RN * Safety/Lab Verification Question Answer Date of Assessment Author Wearing Hearing Aid No 06/09/2025 6:56 AM Arianna Barnes, MITUL * Shock Index Answer Date of Assessment Author 0.43 06/09/2025 9:36 AM Teo Elias RN * Transfer of Nursing Care Question Answer Date of Assessment Author Nurse Report Given To technical maintenance specialist 06/09/2025 8:08 AM Brent Okeefe, MITUL * Kylee-OP Pain Score & Scale Question Answer Date of Assessment Author Scale Used Verbal scale (0-10) 06/09/2025 7:05 AM Arianna Barnes, RN * Mobility Question Answer Date of Assessment Author VTE Risk Score 3 06/10/2025 9:01 PM Sandy Bull * Pain Assessment Timer Question Answer Date of Assessment Author Restart Pain Assessment Timer Yes 06/13/2025 1:21 PM FLIGHT PHYSICIAN Zaynab Messina RN * Intraprocedure: Potential for Impaired Cardiovascular Function Question Answer Date of Assessment Author Cardiovascular: Interventions Utilize monitoring equipment to assess cardiac status: VS, skin color, cardiac rhythm;Identify baseline cardiac status 05/17/2025 12:02 AM Brent Castro RN Cardiovascular: Goal Patient will mainta in optimal cardiovascular function 05/17/2025 12:02 AM Brent Castro RN Cardiovascular: Interventions Goal met 05/17/2025 12:02 AM Brent Castro RN * Intraprocedure: Potential for Impaired Respiratory Function Question Answer Date of Assessment Author Respiratory: Interventions Maintain open suction line;Identify changes in respiratory status;Utilize monitoring equipment to assess respiratory status 05/17/2025 12:02 AM Brent Castro RN Respiratory: Goal Patient will maintai n optimal respiratory function 05/17/2025 12:02 AM Brent Castro RN Respiratory: Evaluation of Goals Met Goal met 05/17/2025 12:02 AM Brent Castro RN * SAAS/Modified Nani Question Answer Date of Assessment Author Activity 2 06/09/2025 9:[address], RN Circulation 2 06/09/2025 9:[address], RN Respiratory 2 06/09/2025 9:[address], MITUL Level of Consciousness 5 06/09/2025 9:20 AM Marci Mills RN Oxygen Saturation 2 06/09/2025 9:20 AM Marci Mills RN SAAS/Modified Nani Score 13 06/09/2025 9: 20 AM Marci Mills RN * Vitals Question Answer Date of Assessment Author BP 134/68 06/09/2025 9:36 AM Greg Elias RN Temp 98 06/09/2025 9:36 AM Greg Elias RN Temp src Temporal Artery 06/09/2025 9:36 AM FLIGHT PHYSICIAN Greg Hernandez RN Pulse 58 06/09/2025 9:36 AM Greg Elias RN Resp 16 06/09/2025 9:36 AM Greg Elias RN SpO2 96 06/09/2025 9:36 AM Greg Elias RN Heart Rate Source Monitor/Pulse Ox 06/09/2025 9:36 AM Greg Elias RN * PACU Interventions Question Answer Date of Assessment Author Head of Bed Elevated HOB 30 06/09/2025 8:50 AM Marci Mills RN VTE Prophylaxis Devices Intermittent compression devices, below knee;Bilateral 06/09/2025 9:20 AM Marci Mills RN VTE Prophylaxis Intervention On 06/09/2025 9:20 AM Marci Mills RN * Vital Signs Question Answer Date of Assessment Author BP Location Right arm 06/09/2025 9:[address], RN BP Method Automatic 06/09/2025 9:[address], RN MAP (mmHg) 100 06/09/2025 9:[address], RN Patient Position Sitting 06/09/2025 9:20 AM Marci Dawson RN * Oxygen Therapy Question Answer Date of Assessment Author O2 Device Not on O2 06/09/2025 9:[address], RN * Neuro Assessment Question Answer Date of Assessment Author Level of Consciousness Alert 06/09/2025 9:20 AM Marci Mills RN Orientation Level Oriented X4 06/09/2025 9:20 AM Marci Mills RN Neuro ([facility]) WDL 06/09/2025 9:[address], RN * Cardiac Question Answer Date of Assessment Author Cardiac Rhythm Normal Sinus 06/09/2025 9:37 AM Greg Jose laborer aquatic life ([facility]) WDL 06/09/2025 9:37 AM Greg Sarabia ladle filler/Licensed Optician Yes 06/09/2025 9:37 AM Greg Elias, MITUL * Gastrointestinal Question Answer Date of Assessment Author Gastrointestinal ([facility]) WDL 06/09/2025 9:37 AM Greg Elias, RN * Peripheral Vascular Question Answer Date of Assessment Author Peripheral Vascular (WDL) WD 06/09/2025 9:37 AM Greg Elias, RN * Musculoskeletal Question Answer Date of Assessment Author Musculoskeletal ([facility]) [facility] 06/09/2025 9:37 AM Greg Elias RN * Respiratory Question Answer Date of Assessment Author Respiratory ([facility]) [facility] 06/09/2025 9:37 AM Greg Elias, RN * Genitourinary Question Answer Date of Assessment Author Genitourinary ([facility]) X 06/09/2025 9:37 AM Greg Nguyen, RN * Neurological Question Answer Date of Assessment Author Neuro ([facility]) [facility] 06/09/2025 9:37 AM Greg Elias RN * Physical Condition (summarize discussion in comments) Question Answer Date of Assessment Author Pain Score 0-No pain 06/13/2025 1:21 PM Zaynab Aguero RN * Family/Significant Other Question Answer Date of Assessment Author Primary Support Person(s) Dorcas, daughter 06/09/2025 9 :05 AM Marci Mills RN Family/Significant Other Update Called 06/09/2025 9:05 AM Marci Mills R N * Height and Weight Question Answer Date of Assessment Author Weight 2473.6 06/09/2025 7:05 AM Arianna Adam, MITUL * NPO Question Answer Date of Assessment Author Time of last liquid 98920 06/09/2025 7:06 AM Arianna Barnes, MITUL Date of last liquid 67752 06/09/2025 7:06 AM Arianna Barnes RN Date of last solid 29156 06/09/2025 7:06 AM Arianna Lal, MITUL Time of last solid 85518 06/09/2025 7:06 AM Arianna Lal, RN * Transfer of Nursing Care Question Answer Date of Assessment Author Nurse Report Received from MITUL Covarrubias 06/09/2025 9:3 5 AM Greg Elias RN Transfer Checklist SBAR 06/09/2025 9:35 AM Greg Elias, MITUL Transferred Via Stretcher 06/09/2025 9:35 AM Greg De La Cruz RN Accompanied by RN 06/09/2025 9:35 AM Greg Jose RN * Restart Vitals Timer Answer Date of Assessment Author Yes 06/09/2025 9:36 AM Teo Elias RN * Pain Assessment Question Answer Date of Assessment Author Pain Assessment Scale 0-10 06/09/2025 9:20 AM Marci Mills, MITUL * Respiratory Question Answer Date of Assessment Author Respiratory ([facility]) [facility] 06/09/2025 9:20 AM Marci Mills RN * Integumentary Question Answer Date of Assessment Author Integumentary ([facility]) [facility] 06/09/2025 9:20 AM CS T Marci Wu RN * Vitals Question Answer Date of Assessment Author BP 134/68 06/09/2025 9:36 AM Greg Elias RN Pulse 58 06/09/2025 9:36 AM Greg Elias RN Resp 16 06/09/2025 9:36 AM Greg Elias RN SpO2 96 06/09/2025 9:36 AM Greg Elias RN * PACU Interventions Question Answer Date of Assessment Author Head of Bed Elevated HOB 30 06/09/2025 8:50 AM Marci Mills RN VTE Prophylaxis Devices Intermittent compression devices, below knee;Bilateral 06/09/2025 9:20 AM Marci Mills RN VTE Prophylaxis Intervention On 06/09/2025 9:20 AM Marci Mills RN * Neuro Assessment Question Answer Date of Assessment Author Level of Consciousness Alert 06/09/2025 9:20 AM Marci Mills RN * Family/Significant Other Question Answer Date of Assessment Author Primary Support Person(s) Dorcas, daughter 06/09/2025 9 :05 AM Marci Mills RN Family/Significant Other Update Called 06/09/2025 9:05 AM Marci Mills R N documented as of this encounter Mental Status * HEENT Question Answer Entry Date Author HEENT ([facility]) [facility] 06/09/2025 9:37 AM Greg Elias RN R Ear Impaired hearing;Hearing aid 06/09/2025 9 :37 AM Greg Elias RN L Ear Impaired hearing;Hearing aid 06/09/2025 9 :37 AM Greg Elias RN * Shock Index Answer Entry Date Author 0.43 06/09/2025 9:36 AM Teo Elias RN * SAAS/Modified Nani Question Answer Entry Date Author Activity 2 06/09/2025 9:[address], RN Circulation 2 06/09/2025 9:[address], RN Respiratory 2 06/09/2025 9:[address], RN Level of Consciousness 5 06/09/2025 9:20 AM Marci Mills RN Oxygen Saturation 2 06/09/2025 9:20 AM Marci Mills RN SAAS/Modified Nani Score 13 06/09/2025 9: 20 AM Marci Mills RN * Vitals Question Answer Entry Date Author BP 134/68 06/09/2025 9:36 AM Greg Elias RN Temp 98 06/09/2025 9:36 AM Greg Elias RN Temp src Temporal Artery 06/09/2025 9:36 AM Greg De La Cruz RN Pulse 58 06/09/2025 9:36 AM Greg Elias RN Resp 16 06/09/2025 9:36 AM Greg Elias RN SpO2 96 06/09/2025 9:36 AM Greg Elias RN Heart Rate Source Monitor/Pulse Ox 06/09/2025 9:36 AM Greg Elias RN * PACU Interventions Question Answer Entry Date Author VTE Prophylaxis Devices Intermittent com pression devices, below knee;Bilateral 06/09/2025 9:20 AM Macri Mills RN VTE Prophylaxis Intervention On 06/09/2025 9:20 AM Marci Mills RN * Vital Signs Question Answer Entry Date Author BP Location Right arm 06/09/2025 9:[address], RN BP Method Automatic 06/09/2025 9:[address], RN MAP (mmHg) 100 06/09/2025 9:[address], RN Patient Position Sitting 06/09/2025 9:20 AM Marci Dawson RN * Oxygen Therapy Question Answer Entry Date Author O2 Device Not on O2 06/09/2025 9:20 AM FLIGHT PHYSICIAN Marci Melo rd, RN * Neuro Assessment Question Answer Entry Date Author Level of Consciousness Alert 06/09/2025 9:20 AM Marci Mills RN Orientation Level Oriented X4 06/09/2025 9:20 AM Marci Mills RN Neuro ([facility]) [facility] 06/09/2025 9:20 AM FLIGHT PHYSICIAN Marci Melo rd, RN * Cardiac Question Answer Entry Date Author Cardiac Rhythm Normal Sinus 06/09/2025 9:37 AM Greg Jose RN Cardiac ([facility]) [facility] 06/09/2025 9:37 AM Greg Sarabia RN Telemetry/Licensed Optician Yes 06/09/2025 9:37 AM Greg Elias RN * Gastrointestinal Question Answer Entry Date Author Gastrointestinal ([facility]) [facility] 06/09/2025 9:37 AM Greg Elias RN * Peripheral Vascular Question Answer Entry Date Author Peripheral Vascular ([facility]) [facility] 06/09/2025 9:37 AM Greg Elias RN * Musculoskeletal Question Answer Entry Date Author Musculoskeletal ([facility]) [facility] 06/09/2025 9:37 AM Greg Elias RN * Respiratory Question Answer Entry Date Author Respiratory ([facility]) [facility] 06/09/2025 9:37 AM Greg Elias RN * Genitourinary Question Answer Entry Date Author Genitourinary ([facility]) X 06/09/2025 9:37 AM Greg Nguyen RN * Neurological Question Answer Entry Date Author Neuro ([facility]) [facility] 06/09/2025 9:37 AM Greg Elias RN * Physical Condition (summarize discussion in comments) Question Answer Entry Date Author Pain Score 0-No pain 06/13/2025 1:21 PM Zaynab Aguero, MITUL * Family/Significant Other Question Answer Entry Date Author Primary Support Person(s) Dorcas, daughter 06/09/2025 9 :05 AM Marci Mills RN Family/Significant Other Update Called 06/09/2025 9:05 AM Marci Mills R N * Height and Weight Question Answer Entry Date Author Weight 2473.6 06/09/2025 7:05 AM Arianna Adam RN * Pain Assessment Question Answer Entry Date Author Pain Assessment Scale 0-10 06/09/2025 9:20 AM Marci Mills RN * Preprocedure: Anxiety Related to Impending Procedure and Anesthesia/Sedation Question Answer Entry Date Author Anxiety: Evaluation of Goals Met Goal met 05/17/2025 12:02 AM Arianna Olivarez RN documented in this encounter Discharge Instructions * Attachments The following attachments cannot be sent through Care Everywhere. * General Anesthesia Adult Care After (Nepalese) * ESWL for Kidney Stones Care After (Nepalese) documented in this encounter Medications at Time [...] Daily Amount: 4 tablets 20 tablet 06/09/2025 5 documented as of this encounter H&P Notes * Reece Arevalo MD - 06/09/2025 7:58 AM EST History of Present Illness History Of Present Illness Bonny Engle is a 75 y.o. female presenting with with left renal calculus. Brought in today for ESWL. Past Medical History She has a past medical history of Anxiety and depression, COPD (chronic obstructive pulmonary disease) (HCC), Frequent UTI, H/O heart artery stent, High cholesterol, Hormone replacement therapy (HRT), Hypertension, Kidney stone, Nodule of right lung, GABRIELLA (obstructive sleep apnea), Vitamin D deficiency, Wears glasses, and Wears hearing aid. Surgical History She has a past surgical history that includes Hernia repair; Appendectomy; Tubal ligation; Hemorroidectomy; Cholecystectomy; Foot surgery (Bilateral); Cervical fusion; and Hysterectomy. Social History She reports that she has been smoking cigarettes. She has never used smokeless tobacco. She reportsthat she does not currently use alcohol. She reports that she does not currently use drugs. Family History Her family history is not on file. Allergies Gabapentin and Bismuth Subsalicylate Medications Current Outpatient Medications Medication Instructions albuterol 90 mcg/actuation inhaler 1 puff, Every 6 hours PRN aspirin 81 mg, Daily azelastine (ASTELIN) 137 mcg (0.1 %) nasal spray 2 sprays, 2 times daily clopidogreL (PLAVIX) 75 mg, Daily escitalopram (LEXAPRO) 5 mg, Daily estradioL (ESTRACE) 0.01 % (0.1 mg/gram) vaginal cream Every Night nitrofurantoin, macrocrystal-monohydrate, (MACROBID) 100 MG capsule 100 mg, Every Night ondansetron (ZOFRAN-ODT) 8 mg, Every 8 hours PRN oxybutynin (DITROPAN-XL) 10 mg, Daily phenazopyridine (PYRIDIUM) 100 mg, 3 times daily PRN Premarin 1 g, Weekly ranolazine (RANEXA) 500 mg, 2 times daily rosuvastatin (CRESTOR) 40 mg, Daily spironolactone (ALDACTONE) 25 mg, Daily terbinafine (LamISIL) 1 % cream 2 times daily Trelegy Ellipta 100-62.5-25 mcg dsdv 1 puff, Daily valsartan (DIOVAN) 80 mg, 2 times daily Review of Systems Review of Systems Constitutional: Negative. HENT: Negative. Respiratory: Negative. Cardiovascular: Negative. Gastrointestinal: Negative. Genitourinary: Negative. Last Recorded Vitals Blood pressure 129/60, pulse 61, temperature 97.9 ??F (36.6 ??C), temperature source Oral, resp. rate 20, weight 70.1 kg (154 lb 9.6 oz), SpO2 96%. Physical Exam Constitutional: Appearance: Normal appearance. Pulmonary: Effort: Pulmonary effort is normal. Abdominal: General: Abdomen is flat. Palpations: Abdomen is soft. Neurological: Mental Status: She is alert. Diagnostic Results Admission on 06/09/2025 Component Date Value Ref Range Status POC-GLUCOSE 06/09/2025 137 (H) 70 - 110 mg/dL Final [facility] Lead 06/09/2025 [id number] Final No image results found. Assessment & Plan Active Problems: Smoker Impression: Left renal calculus Plan: Left ESWL Electronically signed by: Reece Arevalo MD, 06/09/2025 at 7:58 AM HT PHYSICIAN documented in this encounter OR Notes * Op Note - Reece Arevalo MD - 06/09/2025 8:52 AM EST Date: 06/09/2025 Procedures: LEFT EXTRACORPOREAL SHOCKWAVE LITHOTRIPSY (Left) Diagnosis: Pre-Op Diagnosis Codes: * Uric acid nephrolithiasis [N20.0] Post-op Diagnosis * Uric acid nephrolithiasis [N20.0] Indications: Bonny Engle is an 75 y.o. female left renal calculus. Brought in today for ESWL. The risks, benefits, and alternatives of the above procedure were discussed and the patient has elected to proceed. Surgeons: * Reece Arevalo - Primary Findings: Stone in the left renal pelvis Procedure Details: After induction of general anesthesia patient was prepped in supine position. Fluoroscopy was used to localize the stone for treatment. Patient was given 100 shocks and then a 3-minute pause was taken. A total of 3000 shocks were given. There was good fragmentation of the stone The patient was seen in the preoperative area. The site of surgery was properly noted/marked if necessary per policy. The patient has been actively warmed in preoperative area. Preoperative antibiotics are not indicated. Venous thrombosis prophylaxis have been ordered including bilateral sequentialcompression devices Anesthesia: General Estimated Blood Loss: minimal Total IV Fluids: See anesthesia record mL Drains: * None in log * Specimens: Specimens (From admission, onward) None Complications: None * No complications entered in OR log * Disposition: PACU - hemodynamically stable. Condition: stable Attending Attestation: I performed the procedure. HT PHYSICIAN documented in this encounter Plan of Treatment Not on file documented as of this encounter Procedures Procedure Name Priority Date/Time Associated Diagnosis Comments NJ LITHOTRIPSY XTRCORP SHOCK WAVE 06/09/2025 7:59 AM EST Uric acid nephrolithiasis Case Notes ESWL CONFIRMATION #[id number] SPOKE TO ERIN CRISRosalie GLUCOSE POC Routine 06/09/2025 6:44 AM EST XR ABDOMEN/KUB 1 VW Routine 06/09/2025 6:31 AM EST documented in this encounter Results * (ABNORMAL) Glucose, Nova Meter (06/09/2025 6:44 AM EST) POC-GLUCOSE 137(H) 70 - 110 mg/dL 06/09/2025 6:47 AM EST [facility] Comment:In the event of poor peripheral blood flow, venous or arterial blood should be used due to the potential of erroneous results. [facility] Lead [id number] 06/09/2025 6:47 AM EST [facility] Blood WHOLE BLOOD / Unknown 06/09/2025 6:44 AM EST 06/09/2025 6:47 AM EST us Reece Arevalo MD POINT OF CARE TEST ORDERABLES F inal Result [facility] [address] [phone] * XR Abdomen KUB 1 view (06/09/2025 6:31 AM EST) Anatomical Region Laterality Modality Abdomen X-Ray 06/09/2025 9:20 AM EST Impressions 06/09/2025 9:24 AM EST Nonspecific bowel gas pattern. Images reviewed, interpreted, and dictated by Dr. Ev Tanner. Transcribed by Emily Mercado PA-C. Narrative 06/09/2025 9:24 AM EST SINGLE VIEW ABDOMEN HISTORY: Preoperative evaluation, history of renal stones. FINDINGS: Single view of the abdomen demonstrates a nonspecific bowel gas pattern. There is a 10 mm stone projecting over the left kidney. There are multiple right upper quadrant surgical clips consistent with cholecystectomy. Procedure Note Rosalie Tanner MD - 06/09/2025 SINGLE VIEW ABDOMEN HISTORY: Preoperative evaluation, history of renal stones. FINDINGS: Single view of the abdomen demonstrates a nonspecific bowel gas pattern. There is a 10 mm stone projecting over the left kidney. There are multiple right upper quadrant surgical clips consistent with cholecystectomy. IMPRESSION: Nonspecific bowel gas pattern. Images reviewed, interpreted, and dictated by Dr. Ev Tanner. Transcribed by Emily Mercado PA-C. us Hector Cole MD [facility] DI[facility]NOSTIC IMAGING ORDERAB LES Final Result documented in this encounter Visit Diagnoses Diagnosis Smoker Tobacco use disorder documented in this encounter Administered Medications Inactive Administered Medications - up to 3 most recent administrations Medication Order MAR Action Action Date Dose Rate Site cefUROXime (CEFTIN) tablet 500 mg 500 mg 2 times daily, oral, First dose on Thu06/09/25 at 2100, Please choose an indication: Surgical Prophylaxis electrolyte-R (NORMOSOL-R) infusion intravenous, Continuous, Starting on Thu06/09/25 at 0630, Pre-op Continued by Anesthesia 06/09/2025 7:59 AM EST 75 mL/hr 75 mL/hr New Bag 06/09/2025 7:01 AM EST 1,000 mLs famotidine (PEPCID) tablet 20 mg 20 mg Once, oral, On Thu06/09/25 at 0630, For 1 dose, Pharmacist to renally dose if CrCl is less than 50 mL/min or on CRRT., Pre-op Given 06/09/2025 7:02 AM EST 20 m g fentaNYL PF (SUBLIMAZE) injection 25 mcg 25 mcg Every 5 min PRN, intravenous, mild pain, Starting on Thu06/09/25 at 0843, For 4 doses, Maximum cumulative dose 100 mcg. If maximum dose is reached, proceed to 2nd Line agent., PACU HYDROmorphone (DILAUDID) injection 0.5 mg 0.5 mg Every 10 min PRN, intravenous, severe pain (7-10), 2nd Line agent after max dose Fentanyl given if ordered., Starting on Thu06/09/25 at 0843, For 4 doses, Maximum cumulative dose 2 mg, PACU, PACU ondansetron (ZOFRAN) injection 4 mg 4 mg Every 15 min PRN, intravenous, nausea, Starting on Thu06/09/25 at 0843, For 2 doses, 1st line for nausea For IV push, give over 2 - 5 minutes., PACU oxyCODONE-acetaminophen (PERCOCET) 5-325 mg per tablet 1 tablet 1 tablet Every 6 hours PRN, oral, moderate pain (4-6) use first line, Starting on Thu06/09/25 at 0854, Recommended maximum dose of acetaminophen is 4000 mg from all sources in 24 hours Look-alike/Sound-alike medication documented in this encounter Active and Recently Administered Medications Times are shown in EST. Scheduled Medication Order 06/07/2025 06/08/2025 06/09/2025 cefUROXime (CEFTIN) tablet 500 mg 500 mg 2 times daily, oral, First dose on Thu06/09/25 at 2100, Please choose an indication: Surgical Prophylaxis famotidine (PEPCID) tablet 20 mg (COMPLETED) 20 mg Once, oral, On Thu06/09/25 at 0630, For 1 dose, Pharmacist to renally dose if CrCl is less than 50 mL/min or on CRRT., Pre-op 0702 (Given - Provid er: Arianna Steven RN) Continuous Medication Order 06/07/2025 06/08/2025 06/09/2025 electrolyte-R (NORMOSOL-R) infusion intravenous, Continuous, Starting on Thu06/09/25 at 0630, Pre-op 0701 (New Bag - Prov ider: Arianna Steven RN)0759 (Continued by Anesthesia - Provider: Yuri Pearce CRNA)0859 (Anesthesia Volume Adjustment - Provider: Yuri Pearce CRNA) PRN Medication Order 06/07/2025 06/08/2025 06/09/2025 fentaNYL PF (SUBLIMAZE) injection 25 mcg 25 mcg Every 5 min PRN, intravenous, mild pain, Starting on Thu06/09/25 at 0843, For 4 doses, Maximum cumulative dose 100 mcg. If maximum dose is reached, proceed to 2nd Line agent., PACU HYDROmorphone (DILAUDID) injection 0.5 mg 0.5 mg Every 10 min PRN, intravenous, severe pain (7-10), 2nd Line agent after max dose Fentanyl given if ordered., Starting on Thu06/09/25 at 0843, For 4 doses, Maximum cumulative dose 2 mg, PACU, PACU ondansetron (ZOFRAN) injection 4 mg 4 mg Every 15 min PRN, intravenous, nausea, Starting on Thu06/09/25 at 0843, For 2 doses, 1st line for nausea For IV push, give over 2 - 5 minutes., PACU oxyCODONE-acetaminophen (PERCOCET) 5-325 mg per tablet 1 tablet 1 tablet Every 6 hours PRN, oral, moderate pain (4-6) use first line, Starting on Thu06/09/25 at 0854, Recommended maximum dose of acetaminophen is 4000 mg from all sources in 24 hours Look-alike/Sound-alike medication documented in this encounter Care Teams Road Production General Manager Relationship Specialty Start Date End Date Rubin Puga MD [address] [place] [address] PCP - General Family Medicine 05/24/25 documented as of this encounter
--- OUTSIDE RECORDS SUMMARY | 2025-06-09 07:59 | XMS_ITS | Encounter Summary ---
Author Organization [employer] ([place], [place], [place], [place], [place]) Address [address] [place] [address] Care Team Providers Care Laborer/Grade Check Name Role Phone Rubin Puga MD Primary Care Provider + Reason for Visit * Auth/Cert (Routine) Specialty Diagnoses / Procedures Referred By Shireen laguerre Referred To Contact Diagnoses Uric acid nephrolithiasis SEE PRIMARY DX Procedures LA LITHOTRIPSY XTRCORP SHOCK WAVE LITHOTRIPSY,EXTRACORPOREAL SHOCK WAVE (ESWL) [facility] [address] [place] [address] Phone: tel: fax: [facility] [address] [place] [address] Phone: tel: fax: Referral ID Status Reason Start Date Expiration Date Visits Re quested Visits Authorized [id number] 1 1 Encounter Details Date Type Department Care Team (Late st Contact Info) Description 06/09/2025 7:59 AM EST Anesthesia Event [facility] [address] [place] [address] Yuri Pearce, IMPLEMENTATION ADVISOR [address] [id number] Kamla Kunz, DO [address] [place] [address] Anesthesia Record Procedure Summary Procedure Name Responsible Anesthesiologist Anesthesia Start Time Anesthesia Stop Time LEFT EXTRACORPOREAL SHOCKWAVE LITHOTRIPSY (Left: Abdomen) Yuri Pearce CRNA 06/09/25 0759 06/09/25 0855 Events Date Time Event Comment 06/09/2025 0657 0759 An Start Patient identif ied and chart reviewed. 0800 An Start Data Anesthesia mac enoch and monitors checked. 0804 Pre-Induction Eval FDA anest hesia machine pre-use checkout completed. Patient status reassessed prior to start of anesthesia care. 0806 An Induction 0807 An Intubation 0808 Anesthesia Ready 0846 An Extubation 0849 an stop data 0850 Handoff to Receiving I compl eted my handoff to the receiving clinician during which we: 1. Identified the patient. 2. Identified the responsible provider. 3. Reviewed the pertinent medical history. 4. Discussed the surgical course. 5. Reviewed intra-op anesthesia management and issues during anesthesia. 6. Set expectations for post-procedure period. 7. Allowed opportunity for questions and acknowledgement of understanding. 0855 An Stop Meds Name Total dexamethasone (DECADRON) injection 4 mg/ mL 4 mg lidocaine (XYLOCAINE) injection 2% 80 mg ondansetron (ZOFRAN) injection vial 4 mg propofol (DIPRIVAN) injection 10 mg/mL b olus 160 mg electrolyte-R (NORMOSOL-R) infusion 75 m L * Agents Name O2 N2O Air SEVOFLURANE * Blood No blood administrations on file. Lines, Drains, and Airways Type Details Placement Removal Peripheral IV Placement Date: 05/21 08/13; Placement Time: 645; Size: 20 G; Orientation: Left, Posterior; Location: Hand; Site Prep: Chlorhexidine ; Local Anesthetic: None; Inserted by: MITUL GARCIA; Insertion attempts: 1; Securement Method: Taped; Removal Date: 06/09/25; Removal Time: 94306/09/25 06 by Porfirio Aguiar RN 06/09/25 09 by Greg Hampton RN ETT Placement Date 06/09; Placement Time 08 (created via procedure documentation); Removal Date 06/09/25; Removal Time 0846 06/09/25 08 by Yuri Pearce CRNA 06/09/25 0846 by Yuri Pearce CRNA Other Airways 06/09/25; 0807 (yanick osei via procedure documentation); 06/09/25; 0846 06/09/25 0807 by Yuri Pearce CRNA 06/09/25 0846 by Yuri Pearce CRNA documented in this encounter Social History Tobacco Use Types Packs/Day Years [...] on file documented as of this encounter OR Notes * Anesthesia Postprocedure Evaluation - Yuri Pearce CRNA - 06/09/2025 8:59 AM EST Patient: Bonny Engle Procedure Summary Date: 06/09/25 Room / Location: [facility]PER[facility] RO[facility] Anesthesia Start: 758 Anesthesia Stop: Procedure: LEFT EXTRACORPOREAL SHOCKWAVE LITHOTRIPSY (Left: Abdomen) Diagnosis: Uric acid nephrolithiasis (SEE PRIMARY DX) Surgeons: Reece Arevalo MD Responsible Provider: Yuri Pearce CRNA Anesthesia Type: general ASA Status: 3 Anesthesia Type: general Vitals Value Taken Time BP 133/64 06/09/25 08:57 Temp 98.0 06/09/25 08:59 Pulse 59 06/09/25 08:58 Resp 11 06/09/25 08:58 SpO2 95 % 06/09/25 08:58 Vitals shown include unfiled device data. Wt 70.1 kg (154 lb 9.6 oz) BMI 27.39 kg/m?? Anesthesia Post Evaluation Patient participation: complete - patient participated Level of consciousness: awake Pain management: adequate Airway patency: patent Respiratory status: nasal cannula Cardiovascular status: stable Hydration status: stable Color: [place] Activity: Moves 4 extremities Inotropes/Vasopressors: N/A No notable events documented. Yuri Pearce CRNA 06/09/2025 8:59 AM EST IAL EDUCATION ADMINISTRATOR * Anesthesia Procedure Notes - Yuri Pearce CRNA - 06/09/2025 8:10 AM ESTAssociated Order(s): Intubation Intubation Authorized by: Yuri Pearce CRNA Performed by: Yuri Pearce CRNA Date/Time: 06/09/2025 8:07 AM Reason: elective Indications and Patient Condition Indications for airway management: anesthesia and airway protection Sedation level: general anesthesia Preoxygenated: yesPatient position: sniffing no Mask difficulty assessment: 0 - not attempted no Final Airway Details Final airway type: supraglottic airway Size: 3 Number of attempts at approach: 1 Number of other approaches attempted: 0 IAL EDUCATION ADMINISTRATOR * Anesthesia Preprocedure Evaluation - Poonam Kunz MD - 06/09/2025 6:55 AM EST Anesthesia Pre Evaluation Ms. Bonny Engle is a 75 y.o. female being evaluated for the following: Date/Time: 06/09/25815 Procedure: LEFT EXTRACORPOREAL SHOCKWAVE LITHOTRIPSY (Left) Location: [facility] Surgeons: Reece Arevalo MD Relevant Problems ANESTHESIA (+) GABRIELLA (obstructive sleep apnea) CARDIOVASCULAR (+) CAD (coronary artery disease) (PCI 1 y ago. No issues since. Plavix 8 d ago ) (+) HTN (hypertension) /RENAL (+) Renal stone RESPIRATORY SYSTEM (+) COPD (chronic obstructive pulmonary disease) (HCC) (+) Smoker (1.5 PPD) Clinical information reviewed: NPO Status No data recorded Physical Exam Airway Mallampati: II TM distance: >3 FB Neck ROM: full Cardiovascular - normal exam Dental - normal examComments: Multiple teeth missing Pulmonary - normal exam Abdominal - normal exam Anesthesia Plan ASA 3 Planned anesthetic: general Induction: intravenous Informed Consent- Anesthetic plan and risks discussed with patient. Blood Consent- Use of blood products discussed with patient who consented to blood products. Plan discussed with IMPLEMENTATION ADVISOR. IAL EDUCATION ADMINISTRATOR documented in this encounter Plan of Treatment Not on file documented as of this encounter Procedures Procedure Name Priority Date/Time Associated Diagnosis Comments LACEY AN LMA LDA Routine 06/09/2025 8:07 AM EST ANESTHESIA INTUBATION Routine 06/09/2025 8:07 AM EST documented in this encounter Results * AN SINGLE LUMEN INTUBATION, LACEY AN LMA LDA (06/09/2025 8:07 AM EST) Yuri Wills CRNA - 06/09/2025 8:07 AM EST Yuri Pearce CRNA 06/09/2025 8:10 AM Intubation Authorized by: Yuri Pearce CRNA Performed by: Yuri Pearce CRNA Date/Time: 06/09/2025 8:07 AM Reason: elective Indications and Patient Condition Indications for airway management: anesthesia and airway protection Sedation level: general anesthesia Preoxygenated: yesPatient position: sniffing no Mask difficulty assessment: 0 - not attempted no Final Airway Details Final airway type: supraglottic airway Size: 3 Number of attempts at approach: 1 Number of other approaches attempted: 0 Yuri Pearce CRNA ANESTHESIA ORDERABLES Final Result documented in this encounter Visit Diagnoses Not on filedocumented in this encounter Administered Medications Inactive Administered Medications - up to 3 most recent administrations Medication Order MAR Action Action Date Dose Rate Site dexAMETHasone (DECADRON) injection As needed, intravenous, Starting on Thu06/09/25 at 0820, Anesthesia Intra-op Given 06/09/2025 8:20 AM EST 4 mg electrolyte-R (NORMOSOL-R) infusion intravenous, Continuous, Starting on Thu06/09/25 at 0630, Pre-op Continued by Anesthesia 06/09/2025 7:59 AM EST 75 mL/hr 75 mL/hr New Bag 06/09/2025 7:01 AM EST 1,000 mLs lidocaine (XYLOCAINE) injection 2% As needed, intravenous, Starting on Thu06/09/25 at 0807, Anesthesia Intra-op Given 06/09/2025 8:07 AM EST 80 mg ondansetron (ZOFRAN) injection As needed, intravenous, Starting on Thu06/09/25 at 0820, Anesthesia Intra-op Given 06/09/2025 8:20 AM EST 4 mg propofol (DIPRIVAN) injection 10 mg/mL bolus As needed, intravenous, Starting on Thu06/09/25 at 0807, Anesthesia Intra-op Given 06/09/2025 8:07 AM EST 160 mg documented in this encounter Care Teams Laborer/Grade Check Relationship Specialty Start Date End Date Rubin Puga MD [address] [place] [address] PCP - General Family Medicine 05/24/25 documented as of this encounter
--- OUTSIDE RECORDS SUMMARY | 2025-06-09 08:16 | XMS_ITS | Encounter Summary ---
Author Organization [employer] ([place], [place], [place], [place], [place]) Address [address] [place] [address] Care Team Providers Care Unit Operator Name Role Phone Rubin Puga MD Primary Care Provider + Reason for Visit * Auth/Cert (Routine) Specialty Diagnoses / Procedures Referred By Shireen laguerre Referred To Contact Diagnoses Uric acid nephrolithiasis SEE PRIMARY DX Procedures ND LITHOTRIPSY XTRCORP SHOCK WAVE LITHOTRIPSY,EXTRACORPOREAL SHOCK WAVE (ESWL) [facility] Surgery [facility] [address] [place] [address] Phone: tel: fax: [facility] [address] [place] [address] Phone: tel: fax: Referral ID Status Reason Start Date Expiration Date Visits Re quested Visits Authorized [id number] 1 1 Encounter Details Date Type Department Care Team (Late st Contact Info) Description 06/09/2025 8:16 AM EST - 06/09/2025 9:37 AM EST Surgery [facility] Surgery [facility] [address] [place] [address] Reece Arevalo MD [address] [place] [address] [place] [address] LEFT EXTRACORPOREAL SHOCKWAVE LITHOTRIPSY Social History Tobacco Use Types Packs/Day Years [...] HEENT (WDL) WDL 06/09/2025 9:37 AM Greg Elisa RN R Ear Impaired hearing;Hearing aid 06/09/2025 [...] of Assessment Author Nurse Report Given To coagulator 06/09/2025 8:08 AM Brent Okeefe, MITUL * [...] Pain Assessment Timer Yes 06/13/2025 1:21 PM LEARNING ENGINEER Zaynab Messina RN * Intraprocedure: Potential for [...] to assess respiratory status 05/17/2025 12:02 AM rBent Castro RN Respiratory: Goal Patient will maintai [...] Temp src Temporal Artery 06/09/2025 9:36 AM LEARNING ENGINEER Greg Hernandez RN Pulse 58 06/09/2025 9:36 [...] 06/09/2025 9:20 AM Marci Mills RN Neuro ([employer]) WDL 06/09/2025 9:[address], RN * Cardiac Question Answer Date of Assessment Author Cardiac Rhythm Normal Sinus 06/09/2025 9:37 AM Greg Jose draw frame operator ([employer]) WDL 06/09/2025 9:37 AM Greg Sarabia personnel clerks supervisor/Big Data Analytics Lead Yes 06/09/2025 9:37 AM Greg Elias, MITUL * Gastrointestinal Question Answer Date of Assessment Author Gastrointestinal ([employer]) WDL 06/09/2025 9:37 AM Greg Elias, RN * Peripheral Vascular Question Answer Date of Assessment Author Peripheral Vascular (WDL) WD 06/09/2025 9:37 AM Greg Elias, RN * Musculoskeletal Question Answer Date of Assessment Author Musculoskeletal ([employer]) [employer] 06/09/2025 9:37 AM Greg Elias RN * Respiratory Question Answer Date of Assessment Author Respiratory ([employer]) [employer] 06/09/2025 9:37 AM Greg Elias, RN * Genitourinary Question Answer Date of Assessment Author Genitourinary ([employer]) X 06/09/2025 9:37 AM Greg Nguyen, RN * Neurological Question Answer Date of Assessment Author Neuro ([employer]) [employer] 06/09/2025 9:37 AM Greg Elias RN * [...] of Assessment Author Time of last liquid 02587 06/09/2025 7:06 AM Arianna Barnes, MITUL Date of last liquid 36034 06/09/2025 7:06 AM Arianna Barnes RN Date of last solid 50643 06/09/2025 7:06 AM Arianna Lal, MITUL Time of last solid 34894 06/09/2025 7:06 AM Arianna Lal, RN * [...] Question Answer Date of Assessment Author Respiratory ([employer]) [employer] 06/09/2025 9:20 AM Marci Mills RN * Integumentary Question Answer Date of Assessment Author Integumentary ([employer]) [employer] 06/09/2025 9:20 AM CS T Marci Wu [...] Question Answer Entry Date Author HEENT ([employer]) [employer] 06/09/2025 9:37 AM Greg Elias RN R [...] pression devices, below knee;Bilateral 06/09/2025 9:20 AM Marci [...] Device Not on O2 06/09/2025 9:20 AM LEARNING ENGINEER Marci Melo rd, RN * Neuro Assessment Question Answer Entry Date Author Level of Consciousness Alert 06/09/2025 9:20 AM Marci Mills RN Orientation Level Oriented X4 06/09/2025 9:20 AM Marci Mills RN Neuro ([employer]) [employer] 06/09/2025 9:20 AM LEARNING ENGINEER Marci Melo rd, RN * Cardiac Question Answer Entry Date Author Cardiac Rhythm Normal Sinus 06/09/2025 9:37 AM Greg Jose RN Cardiac ([employer]) [employer] 06/09/2025 9:37 AM Greg Sarabia RN Telemetry/Big Data Analytics Lead Yes 06/09/2025 9:37 AM Greg Elias RN * Gastrointestinal Question Answer Entry Date Author Gastrointestinal ([employer]) [employer] 06/09/2025 9:37 AM Greg Elias RN * Peripheral Vascular Question Answer Entry Date Author Peripheral Vascular ([employer]) [employer] 06/09/2025 9:37 AM Greg Elias RN * Musculoskeletal Question Answer Entry Date Author Musculoskeletal ([employer]) [employer] 06/09/2025 9:37 AM Greg Elias RN * Respiratory Question Answer Entry Date Author Respiratory ([employer]) [employer] 06/09/2025 9:37 AM Greg Elias RN * Genitourinary Question Answer Entry Date Author Genitourinary ([employer]) X 06/09/2025 9:37 AM Greg Nguyen RN * Neurological Question Answer Entry Date Author Neuro ([employer]) [employer] 06/09/2025 9:37 AM Greg Elias RN * [...] Everywhere. * General Anesthesia Adult Care After (Filipino) * ESWL for Kidney Stones Care After (Filipino) documented in this encounter Medications at Time [...] 137 (H) 70 - 110 mg/dL Final Milk Route Supervisor 06/09/[id number] Final No image results found. Assessment & Plan Active Problems: Smoker Impression: Left renal calculus Plan: Left ESWL Electronically signed by: Reece Arevalo MD, 06/09/2025 at 7:58 AM NING ENGINEER documented in this encounter OR Notes * [...] stable Attending Attestation: I performed the procedure. NING ENGINEER documented in this encounter Plan of Treatment Not on file documented as of this encounter Procedures Procedure Name Priority Date/Time Associated Diagnosis Comments ND LITHOTRIPSY XTRCORP SHOCK WAVE 06/09/2025 7:59 AM EST Uric acid nephrolithiasis Case Notes ESWL CONFIRMATION #[id number] SPOKE TO ERIN CRISRosalie GLUCOSE POC Routine 06/09/2025 6:44 AM EST XR ABDOMEN/KUB 1 VW Routine 06/09/2025 6:31 AM EST documented in this encounter Results * (ABNORMAL) Glucose, Nova Meter (06/09/2025 6:44 AM EST) POC-GLUCOSE 137(H) 70 - 110 mg/dL 06/09/2025 6:47 AM EST [facility] Comment:In the event of poor peripheral blood flow, venous or arterial blood should be used due to the potential of erroneous results. Milk Route Supervisor [phone] 06/09/2025 6:47 AM EST [facility] Blood WHOLE BLOOD / Unknown 06/09/2025 6:44 AM EST 06/09/2025 6:47 AM EST us Reece Arevalo MD POINT OF CARE TEST ORDERABLES F inal Result [facility] [address] [phone] * XR Abdomen KUB 1 view (06/09/2025 [...] Visit Diagnoses Diagnosis Smoker Tobacco use disorder Uric acid nephrolithiasis documented in this encounter Administered Medications Inactive [...] medication documented in this encounter Care Teams Unit Operator Relationship Specialty Start Date End Date Rubin Puga MD [address] [place] [address] PCP - General Family Medicine 05/24/25 documented as of this encounter
[2025-07-11] VITALS (12 sets, daily range): BP systolic 89–118; BP diastolic 43–78; PULSE 60–99; RESP 18–20; TEMP 36.8; O2SAT 95–97; BMI 27.4
--- NOTE | 2025-07-11 16:33 | ECG_ITS ---
APPROVED REPORT Exam: Resting ECG HR:84 bpm ECG Measurements Heart Rate 84 AXES SC 155 P 79 QRSd 85 QRS 72 QT 340 T 50 QTc 381 Conclusion Normal sinus rhythm without acute ST or T wave changes concerning for ischemia Electronically signed by : Marci Moody, 07/12/2025 01:05:19
--- NOTE | 2025-07-11 16:33 | XR_ITS ---
PROCEDURE INFORMATION: Exam: XR Chest Exam date and time: 07/11/2025 5:24 PM Age: 75 years old Clinical indication: Pain; Chest pressure; PT sates pcp informed her about a spot on her right lung and her pcp is keeping an eye on it but he isnt't worried; Additional info: Cp TECHNIQUE: Imaging protocol: Radiologic exam of the chest. Views: 1 view. COMPARISON: CT LUNG SCREENING 01/05/2024 1:48 PM FINDINGS: Lungs: No acute infiltrate or vascular congestion appreciated. Mild right upper lobe scarring. Pleural spaces: Unremarkable. No pleural effusion. No pneumothorax. Heart/Mediastinum: Normal-size cardiac silhouette. Pericardial fat at the base of the heart bilaterally. Left-sided coronary stent noted. Bones/joints: ACDF lower cervical spine. Osteoarthritis left acromioclavicular joint. Intraperitoneal space: Surgical clips right upper quadrant. IMPRESSION: No acute findings. Left-sided coronary stent that is a new finding from 09/03/2022. Chronic findings above.
--- NOTE | 2025-07-11 16:41 | ED_ITS ---
<Statement entered by Marci Moody DO - 07/12/25 00:33> I was consulted by the IFRAH, and we discussed the complexity of problems being addressed. I approve the treatment and management plan for this patient's care in the emergency department, thus performing a substantial portion of the medical decision making. Marci Moody DO Discharge Plan Disposition Patient Disposition: Home, Self-Care Condition: Good Prescriptions Prescriptions: No Action aspirin [Adult Aspirin Regimen] 81 mg tablet,delayed release (DR/EC) 81 mg PO DAILY Qty: 90 3RF cholecalciferol (vitamin D3) 25 mcg (1,000 unit) capsule 25 mcg PO DAILY terbinafine HCl 1 % cream 1 applic topical BID Qty: 15 1RF oxybutynin chloride 10 mg tablet extended release 24hr 10 mg PO DAILY 90 Days Qty: 90 1RF estradiol [Estrace] 0.01 % (0.1 mg/gram) cream 1 appful vaginal DAILY 30 Days Qty: 42.5 3RF Rx Instructions: Finger technique daily for 14 days and then three times week thereafter azelastine 137 mcg (0.1 %) spray,non-aerosol 2 spray intranasal BID Qty: 30 2RF Rx Instructions: administer into each nostril albuterol sulfate 90 mcg/actuation HFA aerosol inhaler 1 inh inhalation QID Qty: 8.5 4RF Trelegy Ellipta 100-62.5-25 mcg blister with device 1 inh inhalation Q24H Qty: 60 12RF methylprednisolone [Medrol (Shaan)] 4 mg tablets,dose pack See Rx Instructions PO PER PKG DIR Qty: 21 0RF Rx Instructions: PO PER PKG DIR for 6 days amoxicillin-pot clavulanate 875-125 mg tablet 1 tab PO BID 10 Days Qty: 20 0RF Adult 50 Plus Probiotic 4 billion cell capsule 4,000 mmu cells PO DAILY Qty: 90 0RF clopidogrel [Plavix] 75 mg tablet 75 mg PO DAILY Qty: 90 3RF rosuvastatin [Crestor] 40 mg tablet 40 mg PO DAILY Qty: 90 3RF ranolazine 500 mg tablet extended release 12 hr 500 mg PO BID Qty: 60 5RF spironolactone 25 mg tablet 25 mg PO DAILY Qty: 90 3RF escitalopram oxalate 5 mg tablet 5 mg PO DAILY Qty: 90 3RF valsartan 80 mg tablet 80 mg PO BID Qty: 180 3RF Referrals Follow up/Referrals: Rubin Puga MD [Primary Care Provider, Family Practice] - See instructions Activity Restrictions/Add. Instructions Additional Instructions/Restrictions: Follow-up with cardiology as scheduled. Return to the emergency department for any acute or worsening symptoms. Clinical Impressions Clinical Impression: Chest pain Print Language Print Language: Italian Discharge ED Provider: Marci Moody HPI <VENANCIO Parker - Last Filed: 07/17/25 13:24> General Chief Complaint: Chest Pain Stated Complaint: chest pain Time Seen by Provider: 07/11/25 16:32 Mode of Arrival: Ambulatory Source of Information: Patient and Relative Description of Symptoms (Recalled from ER Triage Doc. by RN): patient presents for left chest pain that started around 1500 today. currently rating pain 5/10, radiation to neck and into back. patient takes plavix, aspirin daily. hx of stent placement in July. takes BP meds, patient unsure which one. History of Present Illness HPI narrative: Patient is ill-appearing 75-year-old female who presents emergency department with complaints of chest pain. Patient states chest pain began approximately 1.5 hours ago while she was just sitting at home, states that it was in her left chest and radiated into her neck and her back. Patient states that the pain was 10/10 at onset but has receded to 5/10 at this time. Patient endorses nausea and feels like she had to vomit upon arrival at ED. Patient states she has developed shortness of breath over time since the chest pain began. Patient had a cardiac stent placed in July and is currently on a regimen of aspirin and Plavix. Patient denies any fever or other recent illness or new diagnoses. Related Data Home Medications ?Medication ?Instructions ?Recorded ?Confirmed cholecalciferol (vitamin D3) 25 25 mcg PO DAILY 07/04/25 mcg (1,000 unit) capsule Previous Rx's ?Medication ?Instructions ?Recorded lactobacillus combination no.9 4 4,000 mmu cells PO DA MORIAH probiotic 10/23/23 billion cell capsule (Adult 50 #90 caps Plus Probiotic) aspirin 81 mg tablet,delayed 81 mg PO DAILY #90 tabs 0 02/08/24 release (Adult Aspirin Regimen) clopidogrel 75 mg tablet (Plavix) 75 mg PO DAILY #90 t abs 02/27/25 terbinafine HCl 1 % topical cream 1 applic topical BID #15 grams 03/06/25 azelastine 137 mcg (0.1 %) nasal 2 spray intranasal BI D #30 mL 03/25/25 spray escitalopram oxalate 5 mg tablet 5 mg PO DAILY Anxiety #90 tabs 05/08/25 ranolazine 500 mg tablet,extended 500 mg PO BID #60 ta bs 05/08/25 release,12 hr rosuvastatin 40 mg tablet (Crestor) 40 mg PO DAILY #90 tabs 05/08/25 spironolactone 25 mg tablet 25 mg PO DAILY #90 tabs albuterol sulfate 90 mcg/actuation 1 inh inhalation QI D #8.5 grams 05/12/25 aerosol inhaler fluticasone fur. 100 mcg-umeclid 1 inh inhalation Q24H #60 ea 05/12/25 62.5 mcg-vilant 25 mcg inhalat.powder (Trelegy Ellipta) valsartan 80 mg tablet 80 mg PO BID #180 tabs 05/16 estradiol 0.01% (0.1 mg/gram) 1 appful vaginal DAILY 3 0 days 06/05/25 vaginal cream (Estrace) #42.5 grams oxybutynin chloride 10 mg 10 mg PO DAILY 90 days #90 t abs 06/05/25 tablet,extended release 24 hr amoxicillin 875 mg-potassium 1 tab PO BID 10 days #20 tabs 07/04/25 clavulanate 125 mg tablet methylprednisolone 4 mg tablets in See Rx Instructions PO PER PKG DIR 07/04/25 a dose pack (Medrol (Shaan)) #21 tabs Allergies Allergy/AdvReac Type Severity Reaction Status Date / Time gabapentin Allergy Severe Seizure Verified 07/04/25 10:23 acetaminophen (From Vicks Allergy Mild Rash Verified 07/04/25 10:23 NyQuil Cold/Flu Liquicap) dextromethorphan (From Vicks Allergy Mild Rash Verified 07/04/25 10:23 NyQuil Cold/Flu Liquicap) doxylamine (From Vicks Allergy Mild Rash Verified 07/04/25 10:23 NyQuil Cold/Flu Liquicap) bismuth subsalicylate (From AdvReac Intermediate Swelling Verified 07/04/25 10:23 Pepto-Bismol) of Lip/Tongue/Throat [facility] <VENANCIO Parker - Last Filed: 07/17/25 13:24> [facility] Disclaimer: The information contained in this section may have been updated after the patient was seen, as this information can be updated by other users. Medical History Nephrolithiasis Recurrent UTI Hyperkalemia Intertrigo UTI (urinary tract infection) GE reflux Negative colorectal cancer screening using DNA-based stool test 2024 Colon cancer screening negative colNovember 2024 Pulmonary nodule Hypercholesteremia Tobacco abuse Coronary artery disease Hypertension COPD with chronic bronchitis Surgical History History of coronary artery stent placement Family History Mother Hypertension Brother Cancer Grandfather CHF (congestive heart failure) Social History Smoking Status: Current every day smoker tobacco type: cigarettes packs per day: 1 second hand exposure: No alcohol intake: never substance use type: denies use current occupational status: unemployed and retired Travel in the last 8 weeks?: None household members: spouse housing: house current occupational exposures/hazards: No caffeine: Yes Other Medical History Have you received the Flu Vaccine for this season: No Have you received the Pneumonia Vaccine: No <VENANCIO Parker - Last Filed: 07/17/25 13:24> ROS Obtained: Yes Systems reviewed as appropriate & no additional complaints except as documented Physical Exam <VENANCIO Parker - Last Filed: 07/17/25 13:24> General General appearance: alert, in no apparent distress and other (Ill-appearing) Head Head exam: atraumatic and normocephalic Eye Eye exam: Present normal appearance and PERRL Neck Neck exam: Present normal inspection, full ROM and trachea midline Chest Chest inspection: Present normal inspection and symmetric chest wall rise; Absent tenderness Respiratory Respiratory exam: Present normal lung sounds bilaterally; Absent respiratory distress or wheezes Cardiovascular Cardiovascular exam: Present regular rate and normal rhythm Abdominal Exam Abdominal exam: Present soft and normal bowel sounds; Absent distention, tenderness or guarding Extremities Exam Extremities exam: Present normal inspection Neurological Exam Neurological exam: Present alert and oriented X3 Psychiatric Psychiatric exam: Present normal affect and normal mood Skin Skin exam: Present warm, dry and normal color HEART Score <VENANCIO Parker - Last Filed: 07/17/25 13:24> HEART Score HEART Score assessment performed?: Yes History (anamnesis): Highly suspicious ECG: Normal Age: >65 years Risk factors: Atherosclerosis history Troponin: </= normal limit HEART Score: 6 <Marci Moody DO - Last Filed: 07/12/25 00:36> HEART Score HEART Score: 6 Critical Care <Marci Moody DO - Last Filed: 07/12/25 00:36> Critical Care Time Critical Care Time: No Medical Decision Making <VENANCIO Parker - Last Filed: 07/17/25 13:24> Emmanuel Inquiry Pt receiving controlled substance: No Vital Signs Vital Signs: 07/11/25 16:36 07/11/25 16:41 07/11/25 17:00 Temperature 98.2 F Temperature Source Oral Pulse Rate 99 H 78 Pulse Rate [Right Radial] 99 H Respiratory Rate 20 Blood Pressure 89/60 L Blood Pressure [Right Arm] 118/78 Blood Pressure Mean Blood Pressure Mean [Right Arm] 91 Blood Pressure Source Blood Pressure Source [Right Arm] Automatic Cuff Blood Pressure Position Blood Pressure Position [Right Arm] Sitting 02 Sat by Pulse Oximetry 97 96 Oxygen Delivery Method Room Air Room Air 07/11/25 17:06 07/11/25 17:30 07/11/25 18:01 Temperature Temperature Source Pulse Rate 74 71 Pulse Rate [Right Radial] Respiratory Rate Blood Pressure 92/58 L 115/62 Blood Pressure [Right Arm] Blood Pressure Mean Blood Pressure Mean [Right Arm] Blood Pressure Source Blood Pressure Source [Right Arm] Blood Pressure Position Blood Pressure Position [Right Arm] 02 Sat by Pulse Oximetry 96 95 95 Oxygen Delivery Method Room Air Room Air Room Air 07/11/25 18:30 07/11/25 18:45 07/11/25 19:00 Temperature Temperature Source Pulse Rate 60 64 62 Pulse Rate [Right Radial] Respiratory Rate Blood Pressure 101/55 L 92/43 L Blood Pressure [Right Arm] Blood Pressure Mean 66 Blood Pressure Mean [Right Arm] Blood Pressure Source Blood Pressure Source [Right Arm] Blood Pressure Position Blood Pressure Position [Right Arm] 02 Sat by Pulse Oximetry 95 97 96 Oxygen Delivery Method Room Air 07/11/25 19:30 07/11/25 19:34 07/11/25 22:36 Temperature 98.2 F Temperature Source Temporal Artery Scan Pulse Rate 65 71 85 Pulse Rate [Right Radial] Respiratory Rate 18 Blood Pressure 94/47 L 111/59 L 109/57 L Blood Pressure [Right Arm] Blood Pressure Mean 60 70 Blood Pressure Mean [Right Arm] Blood Pressure Source Automatic Cuff Blood Pressure Source [Right Arm] Blood Pressure Position Sitting Blood Pressure Position [Right Arm] 02 Sat by Pulse Oximetry 95 95 Oxygen Delivery Method Room Air Room Air Room Air Lab Data Labs: Lab Results 07/11/25 16:39: WBC 16.1 H, RBC 3.80 L, Hgb 12.1 L, Hct 36.2 L, MCV 95.3, MCH 31.8 H, MCHC 33.4, RDW 13.5, Plt Count 291, MPV 9.2, Neut % (Auto) 74.9, Lymph % (Auto) 17.1, Marion % (Auto) 5.8, Eos % (Auto) 1.6, Baso % (Auto) 0.1, Neut # (Auto) 12.1 H, Lymph # (Auto) 2.8, Marion # (Auto) 0.9, Eos # (Auto) 0.3, Baso # (Auto) 0.0, VBG pH 7.38, VBG pCO2 40.0, VBG pO2 57.1 H, VBG HCO3 23.3, VBG Total CO2 24.5, VBG O2 Saturation 88.9 H, VBG Base Excess -1.8, VBG Lactic Acid 1.6, S odium 132 L, Potassium 4.0, Chloride 103, Carbon Dioxide 27, Anion Gap 6.0, BUN 29 H, Creatinine 0.90, Estimated Creat Clear 54, Estimated GFR 61, Est GFR ( Amer) 74, Glucose 114 H, Calcium 8.9, Phosphorus 2.8, Magnesium 2.1, Total Bilirubin 0.5, AST 29, ALT 41, Alkaline Phosphatase 84, Troponin I < 0.01, NT-Pro-B Natriuret Pep 572 H, Total Protein 6.6, Albumin 3.9, Globulin 2.7, Albumin/Globulin Ratio 1.4 07/11/25 19:37: Troponin I 0.01 07/11/25 21:58: Troponin I < 0.01 07/11/25 16:39 07/11/25 16:39 Response Orders (Tests/Meds): ED MEDICATIONS Discontinued Medications Generic Name Dose Route Start Last Admin Trade Name Marcosq PRN Reason Stop Dose Admin Aspirin 324 mg 07/11/25 16:33 07/11/25 16:55 Aspirin 81mg Chewable Tablet PO 07/11/25 16:34 324 mg ONCE ONE Administration Morphine Sulfate 4 mg 07/11/25 16:33 07/11/25 16:56 Morphine 4mg/Ml Syringe IV 07/11/25 16:34 Not Given ONCE ONE Nitroglycerin 0.4 mg 07/11/25 16:33 Nitroglycerin 0.4mg Sl Tablet SL 07/12/25 16:33 Q5MINP PRN Chest Pain Ondansetron HCl 4 mg 07/11/25 16:33 07/11/25 16:56 Ondansetron 4mg/2ml Vial IV 07/11/25 16:34 Not Given ONCE ONE ORDERS Category Date Time Status XR chest portable Stat Exams 07/11/25 16:33 Completed Complete Blood Count Auto Diff Stat Lab 07/11/25 16:39 Completed Comprehensive Metabolic Panel Stat Lab 07/11/25 16:39 Completed MAG [Magnesium] Stat Lab 07/11/25 16:39 Completed NT Pro Brain Natriuretic Pep. Stat Lab 07/11/25 16:39 Completed PHOS [Phosphorous] Stat Lab 07/11/25 16:39 Completed Troponin I Q3H Lab 07/11/25 19:37 Completed Troponin I Q3H Lab 07/11/25 21:58 Completed Troponin I Stat Lab 07/11/25 16:39 Completed VBG [Venous Blood Gas] Stat RT 07/11/25 16:39 Completed VBG [Venous Blood Gas] Stat RT 07/11/25 16:46 Ordered MDM Narrative Medical Decision Narrative: HEART score 6 Moderate score; risk of MACE of 12-16.6% In summary patient is an ill-appearing 75-year-old female who presents to the emergency department for evaluation of chest pain. Patient is hemodynamically stable upon arrival, afebrile throughout ED course. Generally unremarkable physical exam; patient has poor aeration but clear lung sounds, regular rate and rhythm, and soft and nontender abdomen. Differential diagnosis includes ACS, electrolyte derangement, pneumonia. Initial workup will be conducted with EKG, chest x-ray, and labs. Initial interventions include 3 and 24 mg chewable aspirin; patient declines morphine, Zofran, and nitroglycerin. Initial workup reviewed by me shows leukocytosis at 16 on CBC with elevated BNP. Otherwise labs generally unremarkable with no significant electrolyte derangement, kidney injury, or transaminitis on CMP, no significant anemia on CBC, with troponin within normal limits/negative. Upon repeat evaluation patient states that her chest pain is continue to resolve during ED course. Given this [patient is appropriate for discharge at this time and will be discharged with a prescription for? The case was discussed with hospital medicine regarding management and they will admit the patient to their service for continued evaluation at this time? Etc.]. I informally interpreted the patient's EKG and chest x-ray as being sinus rhythm with no acute findings. <Marci Moody, DO - Last Filed: 07/12/25 00:36> Vital Signs Vital Signs: 07/11/25 16:36 07/11/25 16:41 07/11/25 17:00 Temperature 98.2 F Temperature Source Oral Pulse Rate 99 H 78 Pulse Rate [Right Radial] 99 H Respiratory Rate 20 Blood Pressure 89/60 L Blood Pressure [Right Arm] 118/78 Blood Pressure Mean Blood Pressure Mean [Right Arm] 91 Blood Pressure Source Blood Pressure Source [Right Arm] Automatic Cuff Blood Pressure Position Blood Pressure Position [Right Arm] Sitting 02 Sat by Pulse Oximetry 97 96 Oxygen Delivery Method Room Air Room Air 07/11/25 17:06 07/11/25 17:30 07/11/25 18:01 Temperature Temperature Source Pulse Rate 74 71 Pulse Rate [Right Radial] Respiratory Rate Blood Pressure 92/58 L 115/62 Blood Pressure [Right Arm] Blood Pressure Mean Blood Pressure Mean [Right Arm] Blood Pressure Source Blood Pressure Source [Right Arm] Blood Pressure Position Blood Pressure Position [Right Arm] 02 Sat by Pulse Oximetry 96 95 95 Oxygen Delivery Method Room Air Room Air Room Air 07/11/25 18:30 07/11/25 18:45 07/11/25 19:00 Temperature Temperature Source Pulse Rate 60 64 62 Pulse Rate [Right Radial] Respiratory Rate Blood Pressure 101/55 L 92/43 L Blood Pressure [Right Arm] Blood Pressure Mean 66 Blood Pressure Mean [Right Arm] Blood Pressure Source Blood Pressure Source [Right Arm] Blood Pressure Position Blood Pressure Position [Right Arm] 02 Sat by Pulse Oximetry 95 97 96 Oxygen Delivery Method Room Air 07/11/25 19:30 07/11/25 19:34 07/11/25 22:36 Temperature 98.2 F Temperature Source Temporal Artery Scan Pulse Rate 65 71 85 Pulse Rate [Right Radial] Respiratory Rate 18 Blood Pressure 94/47 L 111/59 L 109/57 L Blood Pressure [Right Arm] Blood Pressure Mean 60 70 Blood Pressure Mean [Right Arm] Blood Pressure Source Automatic Cuff Blood Pressure Source [Right Arm] Blood Pressure Position Sitting Blood Pressure Position [Right Arm] 02 Sat by Pulse Oximetry 95 95 Oxygen Delivery Method Room Air Room Air Room Air Lab Data Lab results reviewed: Yes I reviewed the patient's lab results. Labs: Lab Results 07/11/25 16:39: WBC 16.1 H, RBC 3.80 L, Hgb 12.1 L, Hct 36.2 L, MCV 95.3, MCH 31.8 H, MCHC 33.4, RDW 13.5, Plt Count 291, MPV 9.2, Neut % (Auto) 74.9, Lymph % (Auto) 17.1, Marion % (Auto) 5.8, Eos % (Auto) 1.6, Baso % (Auto) 0.1, Neut # (Auto) 12.1 H, Lymph # (Auto) 2.8, Marion # (Auto) 0.9, Eos # (Auto) 0.3, Baso # (Auto) 0.0, VBG pH 7.38, VBG pCO2 40.0, VBG pO2 57.1 H, VBG HCO3 23.3, VBG Total CO2 24.5, VBG O2 Saturation 88.9 H, VBG Base Excess -1.8, VBG Lactic Acid 1.6, S odium 132 L, Potassium 4.0, Chloride 103, Carbon Dioxide 27, Anion Gap 6.0, BUN 29 H, Creatinine 0.90, Estimated Creat Clear 54, Estimated GFR 61, Est GFR ( Amer) 74, Glucose 114 H, Calcium 8.9, Phosphorus 2.8, Magnesium 2.1, Total Bilirubin 0.5, AST 29, ALT 41, Alkaline Phosphatase 84, Troponin I < 0.01, NT-Pro-B Natriuret Pep 572 H, Total Protein 6.6, Albumin 3.9, Globulin 2.7, Albumin/Globulin Ratio 1.4 07/11/25 19:37: Troponin I 0.01 07/11/25 21:58: Troponin I < 0.01 Response Orders (Tests/Meds): ED MEDICATIONS Discontinued Medications Generic Name Dose Route Start Last Admin Trade Name Freq PRN Reason Stop Dose Admin Aspirin 324 mg 07/11/25 16:33 07/11/25 16:55 Aspirin 81mg Chewable Tablet PO 07/11/25 16:34 324 mg ONCE ONE Administration Morphine Sulfate 4 mg 07/11/25 16:33 07/11/25 16:56 Morphine 4mg/Ml Syringe IV 07/11/25 16:34 Not Given ONCE ONE Nitroglycerin 0.4 mg 07/11/25 16:33 Nitroglycerin 0.4mg Sl Tablet SL 07/12/25 16:33 Q5MINP PRN Chest Pain Ondansetron HCl 4 mg 07/11/25 16:33 07/11/25 16:56 Ondansetron 4mg/2ml Vial IV 07/11/25 16:34 Not Given ONCE ONE ORDERS Category Date Time Status XR chest portable Stat Exams 07/11/25 16:33 Completed Complete Blood Count Auto Diff Stat Lab 07/11/25 16:39 Completed Comprehensive Metabolic Panel Stat Lab 07/11/25 16:39 Completed MAG [Magnesium] Stat Lab 07/11/25 16:39 Completed NT Pro Brain Natriuretic Pep. Stat Lab 07/11/25 16:39 Completed PHOS [Phosphorous] Stat Lab 07/11/25 16:39 Completed Troponin I Q3H Lab 07/11/25 19:37 Completed Troponin I Q3H Lab 07/11/25 21:58 Completed Troponin I Stat Lab 07/11/25 16:39 Completed VBG [Venous Blood Gas] Stat RT 07/11/25 16:39 Completed VBG [Venous Blood Gas] Stat RT 07/11/25 16:46 Ordered MDM Narrative Medical Decision Narrative: HEART score 6 Moderate score; risk of MACE of 12-16.6% In summary patient is an ill-appearing 75-year-old female who presents to the emergency department for evaluation of chest pain. Patient is hemodynamically stable upon arrival, afebrile throughout ED course. Generally unremarkable physical exam; patient has poor aeration but clear lung sounds, regular rate and rhythm, and soft and nontender abdomen. Differential diagnosis includes ACS, electrolyte derangement, pneumonia. Initial workup will be conducted with EKG, chest x-ray, and labs. Initial interventions include 3 and 24 mg chewable aspirin; patient declines morphine, Zofran, and nitroglycerin. Initial workup reviewed by me shows leukocytosis at 16 on CBC with elevated BNP. Otherwise labs generally unremarkable with no significant electrolyte derangement, kidney injury, or transaminitis on CMP, no significant anemia on CBC, with troponin within normal limits/negative. Upon repeat evaluation patient states that her chest pain is continue to resolve during ED course. I informally interpreted the patient's EKG and chest x-ray as being sinus rhythm with no acute findings. Marci Moody DO I assumed care of the patient at 1900. Patient's labs were reviewed and interpreted by myself: CBC showed no leukocytosis, hemoglobin was stable. CMP was unremarkable. Glucose was normal. Initial troponin was less than 0.01, second troponin was 0.01 however patient's symptoms started at 4 PM therefore patient second troponin was collected at 9 PM therefore I opted to keep patient in the emergency department for 6 full hours for third troponin to further rule out ACS. Patient's BNP was unremarkable at 572. EKG was reviewed and interpreted by myself and showed no acute ST or T wave changes concerning for ischemia. Patient's chest x-ray was reviewed and interpreted myself and showed no acute for consolidation, pneumothorax, pleural effusion or other acute cardiopulmonary process. On further reassessment, patient's pain was completely resolved and had been resolved for several hours at this time. Patient's third troponin was collected which was less than 0.01 therefore at this time I felt the patient was stable and appropriate for outpatient management with her primary care provider given that her heart score was 5.
--- NOTE | 2025-07-11 16:46 | PC.NURSE ---
respiratory notified of VBG sent to lab
--- OUTSIDE RECORDS SUMMARY | 2025-07-11 16:47 | XMS_ITS | Referral Summary ---
Author Organization [employer] ([place], [place], [place], [place], [place]) Address [address] [place] [address] Care Team Providers Care Roll Scale Worker Name Role Phone Rubin Puga MD Primary Care Provider [phone] Encounters Date Type Department Care Team Description 06/09/2025 Travel 06/09/2025 8:16 AM EST - 06/09/2025 9:37 AM EST Surgery [facility] Surgery Department [address] [place] [address] Reece Arevalo MD LEFT EXTRACORPOREAL SHOCKWAVE LITHOTRIPSY 06/09/2025 7:59 AM EST Anesthesia Event [facility] Surgery Department [address] [place] [address] Yuri Pearce, Kamla Frank DO 06/09/2025 5:58 AM EST - 06/09/2025 9:50 AM EST Hospital Encounter [facility] Surgery Department [address] [place] [address] Reece Arevalo MD Discharge Disposition: Home or Self Care 05/24/2025 Travel 05/24/2025 9:42 AM EST - 05/24/2025 11:59 PM EST Hospital Encounter [facility] Preadmission Testing [address] [facility] [address] [place] [address] Rubin Puga MD Preop examination (Primary Dx); Renal stone; Tobacco abuse; GABRIELLA (obstructive sleep apnea); Mood disorder (HCC); OAB (overactive bladder) Discharge Disposition: Home or Self Care from Last 3 Months Allergies Active Allergy Reactions Criticality Noted Date Comments Bismuth Subsalicylate Other (See Comments) 02/2024 Turned tongue black Gabapentin Other (See Comments) High 01/25/2024 Medications albuterol 90 mcg/actuation inhaler Inhale 1 puff by mouth every 6 (six) hours as needed for shortness of breath or wheezing. 05/12/20 25 Active azelastine (ASTELIN) 137 mcg (0.1 %) nasal spray Administer 2 sprays into each nostril 2 (two) times daily. 03/25/20 25 Active clopidogreL (PLAVIX) 75 mg tablet Take 1 tablet (75 mg total) by mouth daily. 02/28/20 25 Active escitalopram (LEXAPRO) 5 MG tablet Take 1 tablet (5 mg total) by mouth daily. 05/08/20 25 Active estradioL (ESTRACE) 0.01 % (0.1 mg/gram) vaginal cream Insert into the vagina nightly. 04/10/20 25 Active Premarin 0.625 mg/gram vaginal cream Insert 1 g into the vagina once a week. 04/03/20 25 Active Trelegy Ellipta 100-62.5-25 mcg dsdv Take 1 puff by mouth daily. 05/05/20 25 Active nitrofurantoin, macrocrystal-monoh ydrate, (MACROBID) 100 MG capsule Take 1 capsule (100 mg total) by mouth nightly. 05/15/20 25 Active ondansetron (ZOFRAN-ODT) 8 MG disintegrating tablet Take 1 tablet (8 mg total) by mouth every 8 (eight) hours as needed. 03/25/20 25 Active oxybutynin (DITROPAN-XL) 10 MG 24 hr tablet Take 1 tablet (10 mg total) by mouth daily. 05/08/20 25 Active phenazopyridine (PYRIDIUM) 100 MG tablet Take 1 tablet (100 mg total) by mouth 3 (three) times daily as needed. 03/01/20 25 Active ranolazine (RANEXA) 500 MG 12 hr tablet Take 1 tablet (500 mg total) by mouth 2 (two) times daily. 05/08/20 Active rosuvastatin (CRESTOR) 40 MG tablet Take 1 tablet (40 mg total) by mouth daily. 05/08/20 Active spironolactone (ALDACTONE) 25 MG tablet Take 1 tablet (25 mg total) by mouth daily. 05/08/20 Active terbinafine (LamISIL) 1 % cream Apply topically 2 (two) times daily. 03/07/20 Active valsartan (DIOVAN) 80 MG tablet Take 1 tablet (80 mg total) by mouth 2 (two) times daily. 04/10/20 Active aspirin 81 MG EC tablet Take 1 tablet (81 mg total) by mouth daily. Active cefUROXime (CEFTIN) 500 MG tablet Take 1 tablet (500 mg total) by mouth 2 (two) times daily. 10 tablet 06/09/20 Active oxyCODONE-acetamin ophen (PERCOCET) 5-325 mg per tablet Take 1 tablet by mouth every 6 (six) hours as needed for up to 10 days Look-alike/S ound-alike medication. Max Daily Amount: 4 tablets 20 tablet 06/09/20 025 Active Problems Problem Noted Date Diagnosed Date Smoker 06/09/2025 Renal stone 05/24/2025 CAD (coronary artery disease) 05/24/2025 Tobacco abuse 05/24/2025 COPD (chronic obstructive pulmonary disease) 11/2024 GABRIELLA (obstructive sleep apnea) 05/24/2025 Mood disorder 05/24/2025 OAB (overactive bladder) 05/24/2025 Hyperlipidemia 05/24/2025 HTN (hypertension) 05/24/2025 Social History Tobacco Use Types Packs/Day Years [...] on file Sexual Orientation Not on file Last Filed Vital Signs Vital Sign Reading [...] oz) 06/09/2025 7:05 A M EST Height 160 cm (5' 3 ) 05/24/2025 10:27 AM EST Body Mass Index 27.39 05/24/2025 10:27 AM EST Plan of Treatment Not on file Procedures Procedure Name Priority Date/Time Associated Diagnosis Comments LACEY AN LMA LDA Routine 06/09/2025 8:07 AM EST ANESTHESIA INTUBATION Routine 06/09/2025 8:07 AM EST [place] LITHOTRIPSY XTRCORP SHOCK WAVE 06/09/2025 7:59 AM EST Uric acid nephrolithiasis Case Notes ESWL CONFIRMATION #[id number] SPOKE TO ERIN COY GLUCOSE POC Routine 06/09/2025 6:44 AM EST XR ABDOMEN/KUB 1 VW Routine 06/09/2025 6:31 AM EST FS_MODEL_IP_ECG 12-LEAD Routine 05/24/2025 10:31 AM EST Preop examination BASIC METABOLIC PANEL Routine 05/24/2025 10:25 AM EST Preop examination CBC HEMOGRAM (SJ-BKR) Routine 05/24/2025 10:25 AM EST Preop examination EKG-SCANNED 05/24/2025 from Last 3 Months Results * AN SINGLE LUMEN INTUBATION, LACEY [...] of other approaches attempted: 0 Yuri Pearce GLUE SPREADING MACHINE OPERATOR ANESTHESIA ORDERABLES Final Result * (ABNORMAL) Glucose, Nova Meter (06/09/2025 6:44 AM EST) POC-GLUCOSE 137(H) 70 - 110 mg/dL 06/09/2025 6:47 AM EST [facility] Comment:In the event of poor peripheral blood flow, venous or arterial blood should be used due to the potential of erroneous results. Can Filling Machine Operator [id number] 06/09/2025 6:47 AM EST [facility] Blood WHOLE BLOOD / Unknown 06/09/2025 6:44 AM EST 06/09/2025 6:47 AM EST Reece Arevalo MD POINT OF CARE TEST ORDERABLES F inal Result [facility] [address] [phone] * XR Abdomen KUB 1 view (06/09/2025 [...] IMG DIAGNOSTIC IMAGING ORDERAB LES Final Result * ECG 12 lead (05/24/2025 10:31 AM EST) VENTRICULAR RATE EKG/MIN 69 BPM GE MUSE ATRIAL RATE (MCT) 69 BPM GE MUSE [place] Interval 152 ms GE MUSE QRS-INTERVAL (MSEC) 76 ms GE MUSE QT Interval 386 ms GE MUSE QTC Interval 413 ms GE MUSE P [place] 92 degrees GE MUSE R AXIS (MCT) 56 degrees GE MUSE T Wave [place] 52 degrees GE MUSE [place] Diagnosis Normal sinus rhythm Normal ECG Confirmed by Farida BOWMAN SUZANNE ([id number]) on 05/25/2025 3:31:45 PM GE MUSE 05/24/2025 10:3 1 AM EST 05/25/2025 3:31 PM EST Toby Loving MD ECG ORDERABLES Final Res ult GE MUSE * (ABNORMAL) CBC - Hemogram (SJ-BKR) (05/24/2025 10:25 AM EST) WBC 9.6 3.9 - 10.0 K/ L 05/24/2025 11:00 AM EST [facility] RBC 4.03 3.93 - 5.22 M/ L 05/24/2025 11:00 AM EST [facility] Hemoglobin 12.7 11.2 - 15.7 GM/DL 05/24/2025 11:00 AM EST [facility] Hematocrit 38.7 34.1 - 44.9 % 05/24/2025 11:00 AM [facility] MCV 96(H) 79 - 95 fL 05/24/2025 11:00 AM [facility] MCH 31.5 25.6 - 32.2 pg 05/24/2025 11:00 AM [facility] MCHC 32.8 32.2 - 36.5 GM/DL 05/24/2025 11:00 AM [facility] RDW 14.9(H) 11.6 - 14.4 % 05/24/2025 11:00 AM [facility] Platelets 243 163 - 369 K/CU MM 05/24/2025 11:00 AM [facility] MPV 9.8 9.4 - 12.4 fL 05/24/2025 11:00 AM [facility] nRBC 0(L) 1 - 5 /100 WBC 05/24/2025 11:00 AM [facility] Blood Venipuncture / Unknown 05/24/2025 10:25 AM EST 05/24/2025 10:54 AM EST Toby Loving MD LAB BLOOD ORDERABLES Maria Teresa l Result Performing Organization Address City/State/[facility] Co de Phone Number [facility] [address] [place] [address] * (ABNORMAL) Basic Metabolic Panel (05/24/2025 10:25 AM EST) Sodium 138 136 - 146 meq/L 05/24/2025 11:22 AM [facility] Potassium 4.4 3.5 - 5.1 meq/L 05/24/2025 11:22 AM [facility] Chloride 105 102 - 112 meq/L 05/24/2025 11:22 AM [facility] CO2 29 21 - 32 meq/L 05/24/2025 11:22 AM [facility] Anion Gap 8(L) 9 - 20 05/24/2025 11:22 AM [facility] BUN 13 7 - 22 mg/dL 05/24/2025 11:22 AM [facility] Creatinine 0.92 0.55 - 1.02 mg/dL 05/24/2025 11:22 AM [facility] BUN/Creatinine 14 8 - 20 05/24/2025 11:22 AM [facility] Glucose 91 74 - 100 mg/dL 05/24/2025 11:22 AM [facility] Calcium 9.1 8.5 - 10.1 mg/dL 05/24/2025 11:22 AM [facility] Osmolality Calc 275.4 mOsm/kg 11:22 AM [facility] eGFR (mL/min/1.73m2) >60 >=60 mL/min/1.7 3m2 05/24/2025 11:22 AM [facility] Comment:eGFR of <60 suggests chronic kidney disease if found over a 3 month period of time. eGFR <15 indicates renal failure. Blood Venipuncture / Unknown 05/24/2025 10:25 AM EST 05/24/2025 10:54 AM EST Toby Loving MD LAB BLOOD ORDERABLES Maria Teresa burt Result [facility] [address] [phone] * EKG-SCANNED (05/24/2025) Narrative 05/24/2025 Ordered by an unspecified provider. us Default Scanning Provider SCAN ORDERS Final Result from Last 3 Months Insurance [facility] SUPP Care Teams Roll Scale Worker Relationship Specialty Start Date End Date Rubin Puga MD [address] [place] [address] PCP - General Family Medicine 05/24/25
--- OUTSIDE RECORDS SUMMARY | 2025-07-11 16:47 | XMS_ITS | Encounter Summary ---
Author Organization [employer] ([place], [place], [place], [place], [place]) Address [address] [place] [address] Care Team Providers Care Quebracho Tanner Name Role Phone Rubin Puga MD Primary Care Provider [phone] Encounter Details Date Type Department Care Team (Latest Contact Info) Description 06/09/2025 Travel Social History Tobacco Use Types Packs/Day Years [...] on file documented as of this encounter Functional Status * Communicable Disease Screening Question Answer Date of Assessment Author Have you been in contact with someone who was sick? No / Unsure 06/09/2025 6:56 AM Bharti Lal RN Do you have any of the following new or worsening symptoms? None of these 06/09/2025 6:56 AM Arianna Lal RN documented as of this encounter Plan of Treatment Not on file documented as of this encounter Visit Diagnoses Not on filedocumented in this encounter Care Teams Quebracho Tanner Relationship Specialty Start Date End Date Rubin Puga MD [address] [place] [address] PCP - General Family Medicine 05/24/25 documented as of this encounter
[2025-07-11 16:48] LABS: Hematocrit 36.2 % (37.0-47.0); Hemoglobin 12.1 g/dL (12.2-16.2); Immature Granulocytes % 0.5 %; Mean Corpuscular HGB Conc 33.4 g/dL (31.8-35.4); Mean Corpuscular Hemoglobin 31.8 pg (27.0-31.2); Mean Corpuscular Volume 95.3 fl (81-99); Nucleated Red Blood Cells % 0 %; Platelet Count 291 K/mm3 (142-424); Red Blood Count 3.80 M/mm3 (4.20-5.40); Red Cell Distribution Width-SD 47.6 fL; White Blood Count 16.1 K/mm3 (4.8-10.8)
--- OUTSIDE RECORDS SUMMARY | 2025-07-11 16:48 | XMS_ITS | Clinical Summary ---
Author Organization [employer] ([place], [place], [place], [place], [place]) Address [address] [place] [address] Care Team Providers Care Management Specialist Name Role Phone Rubin Puga MD Primary Care Provider [phone] Allergies Active Allergy Reactions Criticality Noted Date [...] (100 mg total) by mouth nightly. 05/15/20 Active ondansetron (ZOFRAN-ODT) 8 MG disintegrating tablet Take 1 tablet (8 mg total) by mouth every 8 (eight) hours as needed. 03/25/20 25 Active oxybutynin (DITROPAN-XL) 10 MG 24 hr tablet Take 1 tablet (10 mg total) by mouth daily. 05/08/20 Active phenazopyridine (PYRIDIUM) 100 MG tablet Take [...] (25 mg total) by mouth daily. 05/08/20 25 Active terbinafine (LamISIL) 1 % cream Apply topically 2 (two) times daily. 03/07/20 25 Active valsartan (DIOVAN) 80 MG tablet Take 1 tablet (80 mg total) by mouth 2 (two) times daily. 04/10/20 25 Active aspirin 81 MG EC tablet Take 1 tablet (81 mg total) by mouth daily. Active cefUROXime (CEFTIN) 500 MG tablet Take 1 tablet (500 mg total) by mouth 2 (two) times daily. 10 tablet 06/09/20 25 Active oxyCODONE-acetamin ophen (PERCOCET) 5-325 mg per [...] bladder) 05/24/2025 Hyperlipidemia 05/24/2025 HTN (hypertension) 05/24/2025 Encounters Date Type Department Care Team Description 06/09/2025 8:16 AM EST - 06/09/2025 9:37 AM EST Surgery [facility] Surgery Department [address] [place] [address] Reece Arevalo MD LEFT EXTRACORPOREAL SHOCKWAVE LITHOTRIPSY 06/09/2025 7:59 AM EST Anesthesia Event [facility] Surgery Department [address] [place] [address] Yuri Pearce, QUEENIE Kunz, Kamla Duong, 06/09/2025 5:58 AM EST - 06/09/2025 9:50 AM EST Hospital Encounter [facility] Surgery Department [address] [place] [address] Reece Arevalo MD Discharge Disposition: Home or Self Care 06/09/2025 Travel 05/24/2025 9:42 AM EST - 05/24/2025 11:59 PM EST Hospital Encounter [facility] Preadmission Testing [address] [facility] [address] [place] [address] Rubin Puga MD Preop examination (Primary Dx); Renal stone; Tobacco abuse; GABRIELLA (obstructive sleep apnea); Mood disorder (HCC); OAB (overactive bladder) Discharge Disposition: Home or Self Care 05/24/2025 Travel from Last 3 Months Social History Tobacco Use Types Packs/Day Years [...] 05/24/2025 10:27 AM EST Plan of Treatment Health Maintenance Due Date Last Done Comments CT Colonography 1952 Colonoscopy 1952 Colorectal Cancer Screening 1952 DXA SCAN 1952 FOBT/FIT 1952 Fit-DNA (Cologuard) 1952 Sigmoidoscopy 1952 Depression Screening (12+) 1964 Tobacco Cessation Counseling and Screening (12+) 03/14 Hepatitis C Screening 1970 DTAP/TDAP/TD VACCINES (1 - Tdap) 1971 Pneumococcal 50+ years (1 of 2 - PCV) 1971 Breast Cancer Screening 1992 Shingles Vaccine (Zoster) (1 of 2) 2002 Respiratory Syncytial Virus (RSV) Adult or (1 - Risk 60-74 years 1-dose series) 2012 Falls Risk Screening 07/20/2024 COVID-19 VACCINE (1 - season) 2025 Influenza Vaccine (#1) 2025 Medicare IPPE (Welcome to Medicare) [id number] 04/19/2025 Procedures Procedure Name Priority Date/Time Associated Diagnosis Comments LACEY AN LMA LDA Routine 06/09/2025 8:07 AM EST ANESTHESIA INTUBATION Routine 06/09/2025 8:07 AM EST [place] LITHOTRIPSY XTRCORP SHOCK WAVE 06/09/2025 7:59 AM EST Uric acid nephrolithiasis Case Notes ESWL CONFIRMATION #[id number] SPOKE TO ERIN NOVA GLUCOSE POC Routine 06/09/2025 6:44 AM EST [...] Yuri Pearce CRNA ANESTHESIA ORDERABLES Final Result * (ABNORMAL) Glucose, Nova Meter (06/09/2025 6:44 AM EST) POC-GLUCOSE 137(H) 70 - 110 mg/dL 06/09/2025 6:47 AM EST [facility] Comment:In the event of poor peripheral blood flow, venous or arterial blood should be used due to the potential of erroneous results. Cargo Router [id number] 06/09/2025 6:47 AM EST [facility] Blood WHOLE BLOOD / Unknown 06/09/2025 6:44 AM EST 06/09/2025 6:47 AM EST us Reece Arevalo MD POINT OF CARE TEST ORDERABLES F inal Result [facility] [address] [place] [address], [facility] [phone] * XR Abdomen KUB 1 view (06/09/2025 [...] ATRIAL RATE (MCT) 69 BPM GE MUSE [place] Interval 152 ms GE MUSE QRS-INTERVAL (MSEC) 76 ms GE MUSE QT Interval 386 ms GE MUSE QTC Interval 413 ms GE MUSE P [place] 92 degrees GE MUSE R AXIS (MCT) 56 degrees GE MUSE T Wave [place] 52 degrees GE MUSE [place] Diagnosis Normal sinus rhythm Normal ECG Confirmed by Farida BOWMAN SUZANNE ([id number]) on 05/25/2025 3:31:45 PM GE MUSE 05/24/2025 10:3 1 AM EST 05/25/2025 3:31 PM EST us Toby Loving MD ECG ORDERABLES Final Res ult GE MUSE * (ABNORMAL) CBC - Hemogram (SJ-BKR) (05/24/2025 10:25 AM EST) WBC 9.6 3.9 - 10.0 K/ L 05/24/2025 11:00 AM [facility] RBC 4.03 3.93 - 5.22 M/ L 05/24/2025 11:00 AM [facility] Hemoglobin 12.7 11.2 - 15.7 GM/DL 05/24/2025 11:00 AM [facility] Hematocrit 38.7 34.1 - 44.9 % 05/24/2025 11:00 AM [facility] MCV 96(H) 79 - 95 fL 05/24/2025 11:00 AM [facility] MCH 31.5 25.6 - 32.2 pg 05/24/2025 11:00 AM [facility] MCHC 32.8 32.2 - 36.5 GM/DL 05/24/2025 11:00 AM [facility] RDW 14.9(H) 11.6 - 14.4 % 05/24/2025 11:00 AM [facility] Platelets 243 163 - 369 K/CU MM 05/24/2025 11:00 AM [facility] MPV 9.8 9.4 - 12.4 fL 05/24/2025 11:00 AM [facility] nRBC 0(L) 1 - 5 /100 WBC 05/24/2025 11:00 AM [facility] Blood Venipuncture / Unknown 05/24/2025 10:25 AM EST 05/24/2025 10:54 AM EST Toby Loving MD LAB BLOOD ORDERABLES Maria Teresa burt Result [facility] [address] [address] [place] [phone] * (ABNORMAL) Basic Metabolic Panel (05/24/2025 10:25 AM EST) Sodium 138 136 - 146 meq/L 05/24/2025 11:22 AM [facility] Potassium 4.4 3.5 - 5.1 meq/L 05/24/2025 11:22 AM [facility] Chloride 105 102 - 112 meq/L 05/24/2025 11:22 AM [facility] CO2 29 21 - 32 meq/L 05/24/2025 11:22 AM [facility] Anion Gap 8(L) 9 - 20 05/24/2025 11:22 AM [facility] BUN 13 7 - 22 mg/dL 05/24/2025 11:22 AM [facility] Creatinine 0.92 0.55 - 1.02 mg/dL 05/24/2025 11:22 AM [facility] BUN/Creatinine 14 8 - 20 05/24/2025 11:22 AM [facility] Glucose 91 74 - 100 mg/dL 05/24/2025 11:22 AM [facility] Calcium 9.1 8.5 - 10.1 mg/dL 05/24/2025 11:22 AM [facility] Osmolality Calc 275.4 mOsm/kg 11:22 AM [facility] eGFR (mL/min/1.73m2) >60 >=60 mL/min/1.7 3m2 05/24/2025 11:22 AM [facility] Comment:eGFR of <60 suggests chronic kidney disease if found over a 3 month period of time. eGFR <15 indicates renal failure. Blood Venipuncture / Unknown 05/24/2025 10:25 AM EST 05/24/2025 10:54 AM EST Toby Loving MD LAB BLOOD ORDERABLES Maria Teresa burt Result [facility] [address] [place] [address], [facility] [phone] * EKG-SCANNED (05/24/2025) Narrative 05/24/2025 Ordered by an unspecified provider. us Default Scanning Provider SCAN ORDERS Final Result from Last 3 Months Insurance MEDICARE [place] [address] [place] [address] Care Teams Management Specialist Relationship Specialty Start Date End Date Rubin Puga MD [address] [place] [address] PCP - General Family Medicine 05/24/25
--- OUTSIDE RECORDS SUMMARY | 2025-07-11 16:48 | XMS_ITS | Encounter Summary ---
Author Organization [employer] ([place], [place], [place], [place], [place]) Address [address] [place] [address] Care Team Providers Care Manual Plate Filler Name Role Phone Rubin Puga MD Primary Care Provider [phone] Encounter Details Date Type Department Care Team (Latest Contact Info) Description 05/24/2025 Travel Social History Tobacco Use Types Packs/Day [...] someone who was sick? No / Unsure 05/24/2025 10:26 AM Denise Mckeon RN Do you have any of the following new or worsening symptoms? None of these 05/24/2025 10:26 AM Denise Mckeon RN documented as of this encounter Plan of Treatment Not on file documented as of this encounter Visit Diagnoses Not on filedocumented in this encounter Care Teams Manual Plate Filler Relationship Specialty Start Date End Date Rubin Puga MD [address] [place] [address] PCP - General Family Medicine 05/24/25 documented as of this encounter
[2025-07-11 16:50] LABS: Lactate Venous 1.6 mmol/L (0.4-2.0); VBG HCO3 23.3 mmol/L (23-30); VBG PCO2 40.0 mmol/L (35-51); VBG PH 7.38 mmol/L (7.31-7.41); VBG PO2 57.1 mmol/L (28-40)
[2025-07-11 16:55] LABS: Alanine Aminotransferase 41 U/L (12-78); Albumin Level 3.9 g/dl (3.5-5.0); Albumin/Globulin Ratio 1.4 (1.1-1.8); Alkaline Phosphatase 84 U/L (38-126); Anion Gap 6.0 mEq/L (5-15); Aspartate Amino Transferase 29 U/L (14-36); Bilirubin,Total 0.5 mg/dl (0.2-1.3); Blood Urea Nitrogen 29 mg/dl (7-17); Calcium 8.9 mg/dl (8.4-10.2); Carbon Dioxide 27 mmol/L (22.0-30.0); Chloride 103 mmol/L (98-107); Creatinine Clearance Estimated 54 mL/min (50-200); Creatinine,Serum 0.90 mg/dl (0.52-1.04); Estimated Glomerular Filt Rate 61 ml/min (>60); GFR (African American) 74 ML/MIN (>60); Globulin 2.7 g/dL (1.3-3.2); Glucose 114 mg/dl (74-100); Magnesium 2.1 mg/dl (1.6-2.3); Phosphorous 2.8 mg/dl (2.5-4.5); Potassium 4.0 mmoL/L (3.5-5.1); Sodium 132 mmol/L (136-145); Total Protein,Serum 6.6 g/dl (6.3-8.2)
[2025-07-11] MEDS: ASPIRIN 81MG CHEWABLE TABLET 324 MG PO (16:55)
[2025-07-11 17:06] LABS: NT Pro Brain Natriuretic Pep. 572 pg/mL (0-125)
[2025-07-11 17:08] LABS: Troponin I < 0.01 ng/ml (0.00-0.034)
--- NOTE | 2025-07-11 19:39 | PC.NURSE ---
lab notified that second troponin sent
[2025-07-11 20:07] LABS: Troponin I 0.01 ng/ml (0.00-0.034)
[2025-07-11 22:29] LABS: Troponin I < 0.01 ng/ml (0.00-0.034)
== END 2025-07-11 22:37 | disposition home or self-care (01) ==
PROVIDERS: Physician Assistant; Emergency Provider Student in an Organized Health Care Education/Training Program; PCP Family Medicine
DX: R07.9 Chest pain, unspecified (principal); R11.0 Nausea; I10 Essential (primary) hypertension; F17.210 Nicotine dependence, cigarettes, uncomplicated; Z86.79 Personal history of other diseases of the circulatory system; Z95.5 Presence of coronary angioplasty implant and graft; Z79.01 Long term (current) use of anticoagulants
CPT/HCPCS: 71045; 80053; 82803; 83735; 83880; 84100; 84484; 85025; 93005; 99285; J2405